=== PATIENT | female | born 1975 | race Caucasian/White ===

== ENCOUNTER 2018-08-05 08:42 | Inpatient (IN) ==
[2018-08-05] MEDS ORDERED: 0.9 % Sodium Chloride 1,000 ML IVC ONE (09:33)
[2018-08-05] MEDS ORDERED: Ondansetron 4 MG/2 ML VIAL IVP ONE (09:35)
[2018-08-05] MEDS ORDERED: *HR* FentaNYL (PF) 100 MCG/2 ML VIAL IVP ONE (09:41)
--- NOTE | 2018-08-05 10:03 | Emergency Department Note ---
Disposition Clinical Impression: Abdominal pain Qualifiers: Abdominal location: unspecified location Qualified Code(s): R10.9 - Unspecified abdominal pain Disposition: Still a Patient Referrals: NONE,PCP [Primary Care Provider] - General Adult HPI - General Chief complaint: ED GI Bleed Stated complaint: rectal bleeding, abd pain Time Seen by Provider: 08/05/18 09:09 Source: patient Limitations: no limitations Nursing Notes Reviewed: Yes Vital Signs Reviewed: Yes - History of Present Illness HPI Narrative: ED attending attestation note: I examined this patient and my medical decision-making was reviewed with the emergency medicine resident Emilio Anne. I agree with the documented findings, disposition and treatment plan as described except to the extent set forth below. Briefly: 42-year-old female complaining of lower abdominal pain and blood in her stool. No prior history of GI bleeding she has had multiple abdominal surgeries including bladder suspension with mesh. Patient is getting abdominal pelvic CT screening labs IV fluids IV analgesics. Disposition pending. Pain Scale: 10 - Related Data Allergies Allergy/AdvReac Type Severity Reaction Status Date / Time diphenhydramine AdvReac Palpitation Verified 08/05/18 08:44 [From Benadryl] s hydrocodone [From Vicodin] AdvReac Vomiting Verified 08/05/18 08:44 Past Medical History - Past Medical History Medical history: Reports: other Psychiatric history: Reports: no psych history - Social History Smoking Status: Current every day smoker Smokeless Tobacco Status: No Alcohol use: Reports: none Drug use: Reports: marijuana Physical Exam - General Limitations: no limitations General appearance: alert, in no apparent distress Course Vital Signs Temperature 97.8 F 08/05/18 08:44 Pulse Rate 135 08/05/18 08:44 Respiratory Rate 16 08/05/18 08:44 Blood Pressure 118/86 08/05/18 08:44 O2 Sat by Pulse Oximetry 97 08/05/18 08:44 Temperature 97.8 F 08/05/18 08:44 Pulse Rate 135 08/05/18 08:44 Respiratory Rate 16 08/05/18 08:44 Blood Pressure 118/86 08/05/18 08:44 O2 Sat by Pulse Oximetry 97 08/05/18 08:44 Oxygen Delivery Oxygen Delivery Room Air
--- NOTE | 2018-08-05 10:04 | Emergency Department Note ---
Disposition Clinical Impression: Abdominal pain Qualifiers: Abdominal location: left lower quadrant Qualified Code(s): R10.32 - Left lower quadrant pain Sepsis Qualifiers: Sepsis type: sepsis due to unspecified organism Qualified Code(s): A41.9 - Sepsis, unspecified organism Diverticulitis of large intestine with abscess Qualifiers: Diverticulitis bleeding: with bleeding Qualified Code(s): K57.21 - Diverticulitis of large intestine with perforation and abscess with bleeding Disposition: Admitted As Inpatient Condition: Fair Time of Disposition: 10:55 General Adult HPI - General Chief complaint: ED GI Bleed Stated complaint: rectal bleeding, abd pain Time Seen by Provider: 08/05/18 09:09 Source: patient Mode of arrival: ambulatory Limitations: no limitations Nursing Notes Reviewed: Yes Vital Signs Reviewed: Yes - History of Present Illness HPI Narrative: Patient is a 42-year-old female past medical history of partial hysterectomy and bladder mesh presents to the emergency room in for evaluation of abdominal pain associated with nausea, vomiting and diarrhea. Her abdominal pain started proximally 6 days ago. She describes as diffuse but more localized to the lower quadrants, constant, severe cramping. She started having nausea, vomiting and diarrhea over the past 3 days. States that she thinks she is mostly nauseous secondary to the abdominal pain that she is having emesis is nonbloody and nonbilious. She states that she began having blood in her diarrhea yesterday evening which she saw a small amount of red streaking blood in the stool mixed in. States she thinks she is had about 15 episodes of diarrhea over the past 3 days. She also has felt feverish. Possible recent sick contact at home. States she has a history of diverticulosis but has not had diverticulitis or colitis in the past. She does states she has had chronic abdominal pain since having her bladder mesh placed however this is more acute. Pain Scale: 10 - Related Data Allergies Allergy/AdvReac Type Severity Reaction Status Date / Time diphenhydramine AdvReac Palpitation Verified 08/05/18 08:44 [From Benadryl] s hydrocodone [From Vicodin] AdvReac Vomiting Verified 08/05/18 08:44 All systems ED: reviewed and negative except as stated. Review of Systems: As Per HPI Constitutional: Reports: fever. Denies: chills Cardiovascular: Denies: chest pain, palpitations, dyspnea on exertion Respiratory: Denies: cough, dyspnea, wheezes Gastrointestinal: Reports: abdominal pain, nausea, vomiting, diarrhea, hematochezia. Denies: constipation, hematemesis, melena Genitourinary: Denies: urgency, dysuria, frequency Musculoskeletal: Denies: back pain, neck pain Integumentary: Denies: rash Past Medical History - Past Medical History Attestation: Yes The following information was validated with the patient. Medical history: Reports: other Psychiatric history: Reports: no psych history - Social History Smoking Status: Current every day smoker Smokeless Tobacco Status: No Alcohol use: Reports: none Drug use: Reports: marijuana Physical Exam CONSTITUTIONAL: Alert and oriented X3. Laying on her side and appears to be in mild discomfort. HEAD: Normocephalic; atraumatic. EYES: PERRL, no scleral icterus. NOSE: The nose is normal in appearance without rhinorrhea RESP: Normal chest excursion with respiration; breath sounds clear and equal bilaterally; no wheezes, rhonchi, or rales CARD: Regular rhythm, without murmurs, rub or gallop ABD: Diffuse abdominal tenderness, worse so in the LLQ. No peritoneal signs. No rebound, rigidity or guarding. RECTAL: Rectal tone intact. No BRB in the rectal vault. Brown stool present. No fissure or hemorrhoid. SKIN: Normal for age and race; warm and dry; no apparent lesions - General Limitations: no limitations General appearance: alert, in no apparent distress Course Course Narrative: Patient presents for abdominal pain as well as nausea vomiting diarrhea. Her pain seems localized most in the left lower quadrant on exam however it is diffuse. She will undergo imaging, lab work we will treat her nausea as well as her pain. Given her history of diarrhea as well as blood in the stool we will send off a fecal occult card and suspect that this is possibly due to infection possibly colitis versus diverticulitis. - Reevaluation(s) Reevaluation #1: CT scan of the abdomen and pelvis without IV contrast does show acute rectosigmoid diverticulitis with a small peridiverticular abscess measuring appr oximately 2.2 x 1 cm. No signs of perforation. Patient also has a leukocytosis of 24,000. Cultures were ordered and IV antibiotics were ordered as well. A lactate was added on. Patient is meeting criteria for sepsis and given that she does have diverticulitis with a small abscess she will need to be admitted to the hospital for IV antibiotics. Time: 10:25 Reevaluation #2: I discussed the patient's case with the surgeon electronic device repairer, Dr. Leonardo. She agreed to accept the patient to her services. Discussed that this is most likely not a surgical issue at this point where they will continue with IV antibiotics and reassessment. I discussed this with the patient and she agrees with that plan. She was admitted to the surgical services. Time: 10:54 Vital Signs Temperature 97.8 F 08/05/18 08:44 Pulse Rate 135 08/05/18 08:44 Respiratory Rate 16 08/05/18 08:44 Blood Pressure 118/86 08/05/18 08:44 O2 Sat by Pulse Oximetry 97 08/05/18 08:44 Temperature 99.2 F 08/05/18 11:12 Pulse Rate 102 08/05/18 11:12 Respiratory Rate 16 08/05/18 11:12 Blood Pressure 103/75 08/05/18 11:12 O2 Sat by Pulse Oximetry 97 08/05/18 11:12 Oxygen Delivery Oxygen Delivery Room Air Medical Decision Making - Medical Records Medical records reviewed: Yes I reviewed the patient's medical records. - Lab Data Lab results reviewed: Yes I reviewed the patient's lab results. Result diagrams: 08/05/18 09:50 08/05/18 09:50 Lab Results 08/05/18 08/05/18 08/05/18 Range/Units 09:46 09:50 09:50 WBC 24.2 H (4.3-11.1) K/mcL RBC 4.65 (3.82-4.97) M/mcL Hgb 14.6 (11.5-15.4) g/dL Hct 43.0 (35.3-44.9) % MCV 92.5 (83.0-100.0) fL MCH 31.4 (28.0-33.3) pg MCHC 34.0 (31.6-35.5) g/dL RDW 14.4 (11.5-14.5) % Plt Count 367 (140-400) K/mcL MPV 9.7 (9.4-12.4) fL Immature Gran % 0.5 (0-4) % Seg Neutrophils % 88.2 % Lymphocytes % 4.0 % Monocytes % 7.1 % Eosinophils % 0.0 % Basophils % 0.2 % Neutrophils # 21.3 H (1.6-8.9) K/mcL Lymphocytes # 1.0 (0.6-4.6) K/mcL Monocytes # 1.7 H (0.0-1.3) K/mcL Eosinophils # 0.0 (0.0-0.6) K/mcL Basophils # 0.1 (0.0-0.2) K/mcL Sodium 132 L (136-145) mEq/L Potassium 3.7 (3.5-5.1) mEq/L Chloride 100 (98-107) mEq/L Carbon Dioxide 20 L (23-29) mEq/L BUN 8 (6-20) mg/dL Creatinine 0.73 (0.60-1.20) mg/dL Est GFR ( Amer) > 60 (> 60) Est GFR (Non-Af Amer) > 60 (> 60) BUN/Creatinine Ratio 11 (6-26) Glucose 118 H (70-105) mg/dL Calculated Osmolality 273 L (280-300) Calcium 9.3 (8.6-10.3) mg/dL Total Bilirubin 1.2 H (0.3-1.0) mg/dL Direct Bilirubin 0.4 H (0.0-0.2) mg/dL Indirect Bilirubin 0.8 (0.0-1.2) mg/dL AST 16 (13-39) Units/L ALT 19 (7-52) Units/L Alkaline Phosphatase 96 (34-104) Units/L Serum Total Protein 7.9 (6.4-8.9) g/dL Albumin 4.0 (3.5-5.7) g/dL Globulin 3.9 H (2.4-3.5) g/dL Albumin/Globulin Ratio 1.0 L (1.1-2.2) Lipase 5 L (11-82) Units/L Urine Color (Yellow) Urine Clarity (Clear) Urine pH (5.0-8.0) pH Units Ur Specific [place] (1.010-1.025) Urine Protein (Neg-Trace) mg/dL Urine Glucose (UA) (Normal) mg/dL Urine Ketones (Negative) mg/dL Urine Blood (Negative) Urine Nitrite (Negative) Urine Bilirubin (Negative) Urine Urobilinogen (Normal) mg/dL Ur Leukocyte Esterase (Negative) Urine Microscopic RBC (0-3) per hpf Urine Microscopic WBC (0-3) per hpf Ur Squamous Epith Cells (None-Few) per lpf Urine Bacteria (None-Few) per hpf Hyaline Casts (None-Few) per lpf Ur Culture Indicated? (NO) Stool Occult Bld Scrn Negative (Negative) Specimen Rejected 08/05/18 08/05/18 Range/Units 10:18 10:35 WBC (4.3-11.1) K/mcL RBC (3.82-4.97) M/mcL Hgb (11.5-15.4) g/dL Hct (35.3-44.9) % MCV (83.0-100.0) fL MCH (28.0-33.3) pg MCHC (31.6-35.5) g/dL RDW (11.5-14.5) % Plt Count (140-400) K/mcL MPV (9.4-12.4) fL Immature Gran % (0-4) % Seg Neutrophils % % Lymphocytes % % Monocytes % % Eosinophils % % Basophils % % Neutrophils # (1.6-8.9) K/mcL Lymphocytes # (0.6-4.6) K/mcL Monocytes # (0.0-1.3) K/mcL Eosinophils # (0.0-0.6) K/mcL Basophils # (0.0-0.2) K/mcL Sodium (136-145) mEq/L Potassium (3.5-5.1) mEq/L Chloride (98-107) mEq/L Carbon Dioxide (23-29) mEq/L BUN (6-20) mg/dL Creatinine (0.60-1.20) mg/dL Est GFR ( Amer) (> 60) Est GFR (Non-Af Amer) (> 60) BUN/Creatinine Ratio (6-26) Glucose (70-105) mg/dL Calculated Osmolality (280-300) Calcium (8.6-10.3) mg/dL Total Bilirubin (0.3-1.0) mg/dL Direct Bilirubin (0.0-0.2) mg/dL Indirect Bilirubin (0.0-1.2) mg/dL AST (13-39) Units/L ALT (7-52) Units/L Alkaline Phosphatase (34-104) Units/L Serum Total Protein (6.4-8.9) g/dL Albumin (3.5-5.7) g/dL Globulin (2.4-3.5) g/dL Albumin/Globulin Ratio (1.1-2.2) Lipase (11-82) Units/L Urine Color Dark Yellow (Yellow) Urine Clarity Cloudy A (Clear) Urine pH 6.0 (5.0-8.0) pH Units Ur Specific [place] 1.014 (1.010-1.025) Urine Protein 100 H (Neg-Trace) mg/dL Urine Glucose (UA) Normal (Normal) mg/dL Urine Ketones 15 H (Negative) mg/dL Urine Blood Large H (Negative) Urine Nitrite Negative (Negative) Urine Bilirubin Small H (Negative) Urine Urobilinogen Normal (Normal) mg/dL Ur Leukocyte Esterase Negative (Negative) Urine Microscopic RBC 30-50 H (0-3) per hpf Urine Microscopic WBC 3-5 H (0-3) per hpf Ur Squamous Epith Cells Many H (None-Few) per lpf Urine Bacteria None Seen (None-Few) per hpf Hyaline Casts Few (None-Few) per lpf Ur Culture Indicated? NO (NO) Stool Occult Bld Scrn (Negative) Specimen Rejected Hemolyzed - Radiology Data Radiology results reviewed: Yes I reviewed the patient's radiology results. Abdomen/Pelvis CT 08/05/18 09:34 IMPRESSION: Acute rectosigmoid diverticulitis with small mariola-diverticular abscess. D/ / Rodrigo Hanson MD / Rodrigo Hanson MD Interpreting Provider: Rodrigo Hanson MD - EKG Data EKG #1 EKG attestation: Yes I reviewed and interpreted this EKG. EKG results narrative: EKG done at 11:02 shows sinus tachycardia rate of 101. Intervals within normal limits normal axis. No signs of ST elevation, ST depression or Q waves present.
[2018-08-05 10:13] LABS: Basophils # 0.1 K/mcL (0.0-0.2); Basophils % 0.2 %; Hemoglobin 14.6 g/dL (11.5-15.4); Immature Granulocytes % 0.5 % (0-4); Mean Corpuscular Hemoglobin 31.4 pg (28.0-33.3); Mean Corpuscular Volume 92.5 fL (83.0-100.0); Mean Platelet Volume 9.7 fL (9.4-12.4); Monocytes # 1.7 K/mcL (0.0-1.3); Monocytes % 7.1 %; Neutrophils # 21.3 K/mcL (1.6-8.9); Platelet Count 367 K/mcL (140-400); Red Blood Count 4.65 M/mcL (3.82-4.97); Red Cell Distribution Width 14.4 % (11.5-14.5); Segmented Neutrophils % 88.2 %
[2018-08-05] MEDS ORDERED: MetroNIDAZOLE 500 MG/100 ML 500 MG/100 ML BAG IVPB ONE (10:19)
[2018-08-05 10:30] LABS: Alanine Aminotransferase 19 Units/L (7-52); Alkaline Phosphatase 96 Units/L (34-104); Aspartate Amino Transferase 16 Units/L (13-39); BUN/Creatinine Ratio 11 (6-26); Bilirubin,Direct 0.4 mg/dL (0.0-0.2); Bilirubin,Indirect 0.8 mg/dL (0.0-1.2); Bilirubin,Total 1.2 mg/dL (0.3-1.0); Blood Urea Nitrogen 8 mg/dL (6-20); Calcium 9.3 mg/dL (8.6-10.3); Carbon Dioxide 20 mEq/L (23-29); Chloride 100 mEq/L (98-107); Globulin 3.9 g/dL (2.4-3.5); Glucose 118 mg/dL (70-105); Lipase 5 Units/L (11-82); Osmolality,Calculated 273 (280-300); Potassium 3.7 mEq/L (3.5-5.1); Sodium 132 mEq/L (136-145); Total Protein 7.9 g/dL (6.4-8.9); eGFR For Non-African Americans > 60 (> 60)
[2018-08-05 10:36] LABS: Bilirubin,Urine Small (Negative); Blood,Urine Large (Negative); Clarity,Urine Cloudy (Clear); Color,Urine Dark Yellow (Yellow); Glucose,Urine (UA) Normal (Normal); Ketones,Urine 15 mg/dL (Negative); Leukocyte Esterase,Urine Negative (Negative); Nitrite,Urine Negative (Negative); Protein,Urine 100 mg/dL (Neg-Trace); Specific Gravity,Urine 1.014 (1.010-1.025); Urobilinogen,Urine Normal (Normal)
[2018-08-05 10:39] LABS: Bacteria,Urine None Seen per hpf (None-Few); Hyaline Casts,Urine Few per lpf (None-Few); RBC,Urine 30-50 per hpf (0-3); Squamous Epithelial Cell,Urine Many per lpf (None-Few)
[2018-08-05] MEDS ORDERED: Naloxone 0.4 MG/ML INJ IVP PRN (12:35)
[2018-08-05] MEDS ORDERED: *HR* Metoprolol 5 MG/5 ML VIAL IVP PRN (12:35)
[2018-08-05] MEDS ORDERED: OXYCODONE Oral CONC 10 MG/0.5 ML ORAL.SYG SL PRN (12:35)
[2018-08-05] MEDS ORDERED: *HR* Promethazine 25 MG/ML VIAL IVP PRN (12:35)
--- NOTE | 2018-08-05 14:05 | General Surg History&Physical ---
Date of Encounter: 08/05/18 Time of Encounter: 14:00 Assessment and Plan (1) Leukocytosis Current Visit: Yes Status: Acute The assessment and plan as outlined above was discussed with the patient and/or family members who expressed understanding and agreement. All questions were answered. cipro/flagyl trend wbc Qualifiers: Leukocytosis type: unspecified Qualified Code(s): D72.829 - Elevated white blood cell count, unspecified (2) Elevated LFTs Current Visit: Yes Status: Acute The assessment and plan as outlined above was discussed with the patient and/or family members who expressed understanding and agreement. All questions were answered. likely reactive (3) Tobacco abuse Current Visit: Yes Status: Chronic The assessment and plan as outlined above was discussed with the patient and/or family members who expressed understanding and agreement. All questions were answered. ok nicotine patch (4) Diverticulitis of large intestine with abscess Current Visit: Yes Status: Acute The assessment and plan as outlined above was discussed with the patient and/or family members who expressed understanding and agreement. All questions were answered. discussed CT results, labs, and physical findings with patient will plan npo, ok ice chips serial abdominal exams, bowel rest antibiotics prn pain control gi/dvt prophylaxis trend wbc ivf hydration Qualifiers: Diverticulitis bleeding: with bleeding Qualified Code(s): K57.21 - Diverticulitis of large intestine with perforation and abscess with bleeding History of Present Illness Chief complaint: abdominal pain HPI: Ms. Perales is a 42 year old female with a history of diverticulitis about 10 years ago. She started having lower abdominal pain about 6 days ago. Initially pain was dull but continued to progress to severe sharp pain that made it difficult for her to walk. She has had N/V with the pain. No hematemesis. No diarrhea. Still passing flatus and last bm today, some blood present. She had a colonscopy about 10 years ago after her first episode of diverticulitis. She presented to ED and CT showed rectosigmoid diverticulitis, no free air but small pericolonic abscess. Elevated wbc. Past Med Surg Social Fam HX - Past Medical History Source: patient Medical history: other (history diverticulitis) Additional medical history: IBS Psychiatric history: no psych history - Past Surgical History Surgical History: (x3), hysterectomy (partial), other (bilateral ear tubes as child and bilateral ear surgery for "holes in eardrum") Additional surgical history: bladder sling, ear sx - Social History Smoking Status: Current every day smoker Packs per day: 1 Smokeless Tobacco Status: No Alcohol use: none Drug use: marijuana Current living situation: Home - Independent Activity Level: Independent ambulation - Family History Grandmother Hx Family Neurologic Disorders: Yes (brain tumors) Mother Hx Family Cardiac Disorders: Yes (HLD/HTN) Medications and Allergies Allergy/AdvReac Type Severity Reaction Status Date / Time diphenhydramine AdvReac Palpitation Verified 08/05/18 08:44 [From Benadryl] s hydrocodone [From Vicodin] AdvReac Vomiting Verified 08/05/18 08:44 Review of Systems All systems PM: reviewed and no additional remarkable complaints except as stated All systems PM: The remainder of the systems were reviewed and are negative General Surgery Exam Initial Vital Signs Temp Pulse Resp BP Pulse Ox 97.8 F 135 16 118/86 97 08/05/18 08:44 08/05/18 08:44 08/05/18 08:44 08/05/18 08:44 08/05/18 08:44 - General physical appearance well developed, well nourished, no distress, moderate pain - Eyes PERRL, normal ocular movement - ENT normal mucosa, normocephalic - Neck trachea midline - Respiratory normal expansion, clear to auscultation - Cardiovascular Cardiovascular exam: Present: RRR, no murmurs/rubs/gallops - Abdomen Abdomen general surgery: Present: bowel sounds present, soft, tender. Absent: distended, guarding, rebound Abdominal Tenderness: Present: LLQ, suprapubic - Integumentary Integumentary general surgery: Present: warm and dry - Neurologic Present: CN 2-12 grossly intact - Musculoskeletal Present: normal posture - Psychiatric Psychiatric general surgery: Present: A&Ox3, speech is normal Results - Labs 08/05/18 09:50 08/05/18 09:50 Abnormal lab results WBC 24.2 K/mcL (4.3-11.1) H 08/05/18 09:50 Neutrophils # 21.3 K/mcL (1.6-8.9) H 08/05/18 09:50 Monocytes # 1.7 K/mcL (0.0-1.3) H 08/05/18 09:50 Sodium 132 mEq/L (136-145) L 08/05/18 09:50 Carbon Dioxide 20 mEq/L (23-29) L 08/05/18 09:50 Glucose 118 mg/dL (70-105) H 08/05/18 09:50 Calculated Osmolality 273 (280-300) L 08/05/18 09:50 Total Bilirubin 1.2 mg/dL (0.3-1.0) H 08/05/18 09:50 Direct Bilirubin 0.4 mg/dL (0.0-0.2) H 08/05/18 09:50 Globulin 3.9 g/dL (2.4-3.5) H 08/05/18 09:50 Albumin/Globulin Ratio 1.0 (1.1-2.2) L 08/05/18 09:50 Lipase 5 Units/L (11-82) L 08/05/18 09:50 Urine Clarity Cloudy (Clear) A 08/05/18 10:18 Urine Protein 100 mg/dL (Neg-Trace) H 08/05/18 10:18 Urine Ketones 15 mg/dL (Negative) H 08/05/18 10:18 Urine Blood Large (Negative) H 08/05/18 10:18 Urine Bilirubin Small (Negative) H 08/05/18 10:18 Urine Microscopic RBC 30-50 per hpf (0-3) H 08/05/18 10:18 Urine Microscopic WBC 3-5 per hpf (0-3) H 08/05/18 10:18 Ur Squamous Epith Cells Many per lpf (None-Few) H 08/05/18 10:18 Diabetes panel 08/05/18 Range/Units 09:50 Sodium 132 L (136-145) mEq/L Potassium 3.7 (3.5-5.1) mEq/L Chloride 100 (98-107) mEq/L Carbon Dioxide 20 L (23-29) mEq/L BUN 8 (6-20) mg/dL Creatinine 0.73 (0.60-1.20) mg/dL Glucose 118 H (70-105) mg/dL Calcium 9.3 (8.6-10.3) mg/dL AST 16 (13-39) Units/L ALT 19 (7-52) Units/L Alkaline Phosphatase 96 (34-104) Units/L Albumin 4.0 (3.5-5.7) g/dL Calcium panel 08/05/18 Range/Units 09:50 Calcium 9.3 (8.6-10.3) mg/dL Albumin 4.0 (3.5-5.7) g/dL Pituitary panel 08/05/18 Range/Units 09:50 Sodium 132 L (136-145) mEq/L Potassium 3.7 (3.5-5.1) mEq/L Chloride 100 (98-107) mEq/L Carbon Dioxide 20 L (23-29) mEq/L BUN 8 (6-20) mg/dL Creatinine 0.73 (0.60-1.20) mg/dL Glucose 118 H (70-105) mg/dL Calcium 9.3 (8.6-10.3) mg/dL Adrenal panel 08/05/18 Range/Units 09:50 Sodium 132 L (136-145) mEq/L Potassium 3.7 (3.5-5.1) mEq/L Chloride 100 (98-107) mEq/L Carbon Dioxide 20 L (23-29) mEq/L BUN 8 (6-20) mg/dL Creatinine 0.73 (0.60-1.20) mg/dL Glucose 118 H (70-105) mg/dL Calcium 9.3 (8.6-10.3) mg/dL Total Bilirubin 1.2 H (0.3-1.0) mg/dL AST 16 (13-39) Units/L ALT 19 (7-52) Units/L Alkaline Phosphatase 96 (34-104) Units/L Albumin 4.0 (3.5-5.7) g/dL All other labs normal. - Imaging CT scan - abdomen: report reviewed, image reviewed CT scan - pelvis: report reviewed, image reviewed
[2018-08-05] MEDS: Pantoprazole 40 MG VIAL IVP SCH (14:40)
[2018-08-05] MEDS: Acetaminophen IV 1,000 MG/100 ML INFUS..BTL IVPB SCH ×2 (14:40→17:02)
[2018-08-05] MEDS: OXYCODONE Oral CONC 10 MG/0.5 ML ORAL.SYG SL PRN (14:40)
[2018-08-05] MEDS: 0.9 % Sodium Chloride 1,000 ML IVC SCH ×2 (14:41→22:40)
[2018-08-05] MEDS: Nicotine 7 MG PATCH.TD24 TD SCH (14:42)
[2018-08-05] MEDS: MetroNIDAZOLE 500 MG/100 ML 500 MG/100 ML BAG IVPB SCH (17:19)
[2018-08-05] MEDS: *HR* Heparin 5,000 UNIT/ML VIAL SQ SCH (17:20)
[2018-08-06] MEDS: Acetaminophen IV 1,000 MG/100 ML INFUS..BTL IVPB SCH ×5 (00:15→18:26)
[2018-08-06] MEDS: MetroNIDAZOLE 500 MG/100 ML 500 MG/100 ML BAG IVPB SCH ×3 (00:36→16:31)
[2018-08-06 03:57] LABS: Basophils % 0.3 %; Eosinophils # 0.1 K/mcL (0.0-0.6); Eosinophils % 0.9 %; Hematocrit 36.1 % (35.3-44.9); Immature Granulocytes % 0.3 % (0-4); Lymphocytes # 1.3 K/mcL (0.6-4.6); Lymphocytes % 11.3 %; Mean Corpuscular HGB Conc 32.4 g/dL (31.6-35.5); Mean Corpuscular Volume 95.5 fL (83.0-100.0); Mean Platelet Volume 9.5 fL (9.4-12.4); Monocytes # 0.8 K/mcL (0.0-1.3); Monocytes % 7.1 %; Neutrophils # 9.5 K/mcL (1.6-8.9); Platelet Count 257 K/mcL (140-400); Red Blood Count 3.78 M/mcL (3.82-4.97); Red Cell Distribution Width 14.5 % (11.5-14.5); Segmented Neutrophils % 80.1 %
[2018-08-06 03:58] LABS: Hemoglobin 11.7 g/dL (11.5-15.4)
[2018-08-06 04:17] LABS: BUN/Creatinine Ratio 11 (6-26); Blood Urea Nitrogen 7 mg/dL (6-20); Calcium 8.1 mg/dL (8.6-10.3); Carbon Dioxide 22 mEq/L (23-29); Chloride 108 mEq/L (98-107); Glucose 84 mg/dL (70-105); Osmolality,Calculated 281 (280-300); Phosphorous 2.5 mg/dL (2.7-4.5); Potassium 3.8 mEq/L (3.5-5.1); Sodium 137 mEq/L (136-145); eGFR For Non-African Americans > 60 (> 60)
[2018-08-06] MEDS: *HR* Heparin 5,000 UNIT/ML VIAL SQ SCH ×2 (05:25→18:34)
[2018-08-06] MEDS: 0.9 % Sodium Chloride 1,000 ML IVC SCH ×2 (07:01→16:36)
[2018-08-06] MEDS: Nicotine 7 MG PATCH.TD24 TD SCH (08:36)
[2018-08-06] MEDS: Pantoprazole 40 MG VIAL IVP SCH (08:37)
[2018-08-06] MEDS: OXYCODONE Oral CONC 10 MG/0.5 ML ORAL.SYG SL PRN ×2 (08:45→20:05)
--- NOTE | 2018-08-06 10:53 | General Surgery Progress Note ---
<Becky Wallace - Last Filed: 08/06/18 10:50> Date of Encounter: 08/06/18 Time of Encounter: 10:50 - Assessment and Plan (1) Diverticulitis of large intestine with abscess Current Visit: Yes Status: Acute Abdominal discomfort is significantly improved from yesterday. While this SHIFT FOREMAN was performing her examination, the patient was deeply palpating and lifting her abdominal fold without difficulty; stating that her discomfort had improved. She is afebrile and VSS. We will trial clear liquid diet. when discussing full liquid diet (possible tomorrow), patient states, "I don't liek any of that. I won't eat it." She may require advancement to soft rather than fulls when appropriate. Plan: continue supportive care and discomfort management clear liquid diet, no carbonation. If patient has any discomfort with diet return to NPO continue IV antibiotics continue G.I. and DVT prophylaxis ambulate TID out of bed to chair TID serial abdominal exams repeat a.m. labs continue to closely monitor Qualifiers: Diverticulitis bleeding: with bleeding Qualified Code(s): K57.21 - Divert iculitis of large intestine with perforation and abscess with bleeding (2) Leukocytosis Current Visit: Yes Status: Acute WBC is down trending see above Qualifiers: Leukocytosis type: unspecified Qualified Code(s): D72.829 - Elevated white blood cell count, unspecified (3) Tobacco abuse Current Visit: Yes Status: Chronic Subjective Patient reports: no new complaints, feels better, pain is less, voiding w/o difficulty, flatus, no bowel movement, afebrile Narrative: denies n/v Objective Vital Signs - Last 8 Hours Temp Pulse Resp BP Pulse Ox 08/06/18 10:49 97.7 F 70 16 113/73 98 08/06/18 07:15 97.8 F 67 14 90/59 98 08/06/18 03:11 98.1 F 72 16 97/65 97 Intake and Output 08/05/18 08/06/18 08/06/18 23:59 07:59 15:59 Intake Total 1300 / 1300 1200 / 1200 0 / 0 Output Total 500 / 500 150 / 150 Balance 1300 / 1300 700 / 700 -150 / -150 Intake: IV Fluids 1300 / 1300 1200 / 1200 0.9 % Sodium Chloride 1,000 ML 1000 / 1000 1000 / 1000 @ 130 mls/hr IVC .Q7H42M [facility] Rx #:[id number] Ofirmev 1,000 mg/100 ml 1,000 100 / 100 mg In 100 ml @ 400 mls/hr IVPB Q6HR [facility] Rx#:[id number] Cipro Premix 400 MG/200 ML 400 200 / 200 mg In 200 ml @ 200 mls/hr IVPB Q12HR [facility] Rx#:[id number] Flagyl Premix 500 MG/100 ML 500 100 / 100 100 / 100 mg In 100 ml @ 100 mls/hr IVPB Q8HR [facility] Rx#:[id number] Oral 0 / 0 Output: Urine 500 / 500 150 / 150 Other: Meal NPO Percent of Meal Consumed 0% Weight 74.5 kg Patient Weight 08/06/18 23:59 Weight 74.5 kg - General physical appearance well nourished, no distress - Eyes normal ocular movement - ENT normal nares, normal mucosa - Neck Neck exam: trachea midline - Respiratory normal expansion, normal respiratory effort - Cardiovascular Cardiovascular exam: Present: RRR - Abdomen Abdomen: Present: bowel sounds present, soft, tender (mild tenderness with deep palpation). Absent: guarding Hernia: none - Integumentary no rash - Neurologic normal coordination - Musculoskeletal normal gait, normal posture - Psychiatric oriented to time, oriented to person, oriented to place, speech is normal, memory intact - Labs 08/06/18 03:37 08/06/18 03:37 Diabetes panel 08/06/18 Range/Units 03:37 Sodium 137 (136-145) mEq/L Potassium 3.8 (3.5-5.1) mEq/L Chloride 108 H (98-107) mEq/L Carbon Dioxide 22 L (23-29) mEq/L BUN 7 (6-20) mg/dL Creatinine 0.64 (0.60-1.20) mg/dL Glucose 84 (70-105) mg/dL Calcium 8.1 L (8.6-10.3) mg/dL Calcium panel 08/06/18 Range/Units 03:37 Calcium 8.1 L (8.6-10.3) mg/dL Phosphorus 2.5 L (2.7-4.5) mg/dL Pituitary panel 08/06/18 Range/Units 03:37 Sodium 137 (136-145) mEq/L Potassium 3.8 (3.5-5.1) mEq/L Chloride 108 H (98-107) mEq/L Carbon Dioxide 22 L (23-29) mEq/L BUN 7 (6-20) mg/dL Creatinine 0.64 (0.60-1.20) mg/dL Glucose 84 (70-105) mg/dL Calcium 8.1 L (8.6-10.3) mg/dL Adrenal panel 08/06/18 Range/Units 03:37 Sodium 137 (136-145) mEq/L Potassium 3.8 (3.5-5.1) mEq/L Chloride 108 H (98-107) mEq/L Carbon Dioxide 22 L (23-29) mEq/L BUN 7 (6-20) mg/dL Creatinine 0.64 (0.60-1.20) mg/dL Glucose 84 (70-105) mg/dL Calcium 8.1 L (8.6-10.3) mg/dL Consult Discharge Plan - Plan Referrals: Beverly White, TOW TRUCK DISPATCHER [Advanced Practice Nurse] - NONE,PCP [Primary Care Provider] - <Yanci Leonardo - Last Filed: 08/07/18 07:49> Date of Encounter: 08/06/18 Time of Encounter: 17:00 - Assessment and Plan (1) Leukocytosis Current Visit: Yes Status: Acute significantly improved, almost normal continue Abx trend wbc Qualifiers: Leukocytosis type: unspecified Qualified Code(s): D72.829 - Elevated white blood cell count, unspecified (2) Tobacco abuse Current Visit: Yes Status: Chronic (3) Diverticulitis of large intestine with abscess Current Visit: Yes Status: Acute started clears and is tolerating, pain well controlled and no pain medication since this am pain is significantly improved today no nausea continue IVF hydration prn pain control gi/dvt prophylaxis ambulate/OOB to chair cont serial abdominal exams Qualifiers: Diverticulitis bleeding: with bleeding Qualified Code(s): K57.21 - D iverticulitis of large intestine with perforation and abscess with bleeding Subjective Patient reports: feels better, still having pain, pain is less, voiding w/o difficulty, flatus, no bowel movement, afebrile Objective Vital Signs - Last 8 Hours Temp Pulse Resp BP Pulse Ox 08/07/18 07:20 97.7 F 79 13 114/70 96 08/07/18 03:15 97.9 F 58 16 93/56 99 Intake and Output 08/06/18 08/06/18 08/07/18 15:59 23:59 07:59 Intake Total 2160 / 2160 500 / 500 200 / 200 Output Total 150 / 150 450 / 450 Balance 2009 500 / 500 -250 / -250 Intake: IV Fluids 1200 / 1200 500 / 500 200 / 200 0.9 % Sodium Chloride 1,000 ML 1000 / 1000 100 / 100 @ 130 mls/hr IVC .Q7H42M [facility] Rx #:[id number] Ofirmev 1,000 mg/100 ml 1,000 100 / 100 100 / 100 100 / 100 mg In 100 ml @ 400 mls/hr IVPB Q6HR [facility] Rx#:[id number] Cipro Premix 400 MG/200 ML 400 200 / 200 mg In 200 ml @ 200 mls/hr IVPB Q12HR [facility] Rx#:[id number] Flagyl Premix 500 MG/100 ML 500 100 / 100 100 / 100 100 / 100 mg In 100 ml @ 100 mls/hr IVPB Q8HR [facility] Rx#:[id number] Oral 960 / 960 Output: Urine 150 / 150 450 / 450 Other: Meal NPO Percent of Meal Consumed 0% Stool Size Small Stool Consistency loose Stool Color Yellow # Voids 1 1 # Bowel Movements 1 Weight 75.8 kg Patient Weight 08/07/18 23:59 Weight 75.8 kg - General physical appearance well developed, well nourished, no distress - Eyes normal ocular movement - ENT normal nares, normal mucosa, normocephalic - Neck Neck exam: trachea midline - Respiratory normal expansion, normal respiratory effort - Cardiovascular Cardiovascular exam: Present: RRR - Abdomen Abdomen: Present: bowel sounds present, soft, tender. Absent: distended, guarding, rebound - Integumentary no rash - Neurologic CN 2-12 grossly intact, normal coordination - Musculoskeletal normal posture - Psychiatric oriented to time, oriented to person, oriented to place, speech is normal, memory intact - Labs 08/07/18 05:41 08/07/18 05:41 Diabetes panel 08/07/18 Range/Units 05:41 Sodium 136 (136-145) mEq/L Potassium 3.4 L (3.5-5.1) mEq/L Chloride 110 H (98-107) mEq/L Carbon Dioxide 21 L (23-29) mEq/L BUN 5 L (6-20) mg/dL Creatinine 0.59 L (0.60-1.20) mg/dL Glucose 102 (70-105) mg/dL Calcium 8.3 L (8.6-10.3) mg/dL Calcium panel 08/07/18 Range/Units 05:41 Calcium 8.3 L (8.6-10.3) mg/dL Pituitary panel 08/07/18 Range/Units 05:41 Sodium 136 (136-145) mEq/L Potassium 3.4 L (3.5-5.1) mEq/L Chloride 110 H (98-107) mEq/L Carbon Dioxide 21 L (23-29) mEq/L BUN 5 L (6-20) mg/dL Creatinine 0.59 L (0.60-1.20) mg/dL Glucose 102 (70-105) mg/dL Calcium 8.3 L (8.6-10.3) mg/dL Adrenal panel 08/07/18 Range/Units 05:41 Sodium 136 (136-145) mEq/L Potassium 3.4 L (3.5-5.1) mEq/L Chloride 110 H (98-107) mEq/L Carbon Dioxide 21 L (23-29) mEq/L BUN 5 L (6-20) mg/dL Creatinine 0.59 L (0.60-1.20) mg/dL Glucose 102 (70-105) mg/dL Calcium 8.3 L (8.6-10.3) mg/dL - Attending Attestation I have personally performed a face to face evaluation on this patient. I have reviewed and agree with the care plan. History and Exam by me shows:
[2018-08-06] MEDS: Ondansetron 4 MG/2 ML VIAL IVP PRN (20:04)
[2018-08-07] MEDS: Acetaminophen IV 1,000 MG/100 ML INFUS..BTL IVPB SCH ×3 (01:12→18:22)
[2018-08-07] MEDS: 0.9 % Sodium Chloride 1,000 ML IVC SCH ×3 (01:18→17:22)
[2018-08-07] MEDS: MetroNIDAZOLE 500 MG/100 ML 500 MG/100 ML BAG IVPB SCH ×2 (01:39→08:38)
[2018-08-07] MEDS: *HR* Heparin 5,000 UNIT/ML VIAL SQ SCH ×2 (05:06→18:22)
[2018-08-07] MEDS: OXYCODONE Oral CONC 10 MG/0.5 ML ORAL.SYG SL PRN (06:06)
[2018-08-07 06:07] LABS: Basophils % 0.2 %; Eosinophils # 0.2 K/mcL (0.0-0.6); Hematocrit 32.3 % (35.3-44.9); Hemoglobin 10.7 g/dL (11.5-15.4); Immature Granulocytes % 0.4 % (0-4); Lymphocytes # 1.1 K/mcL (0.6-4.6); Lymphocytes % 13.6 %; Mean Corpuscular HGB Conc 33.1 g/dL (31.6-35.5); Mean Corpuscular Hemoglobin 30.9 pg (28.0-33.3); Mean Corpuscular Volume 93.4 fL (83.0-100.0); Mean Platelet Volume 9.6 fL (9.4-12.4); Monocytes # 0.5 K/mcL (0.0-1.3); Monocytes % 5.6 %; Neutrophils # 6.3 K/mcL (1.6-8.9); Platelet Count 257 K/mcL (140-400); Red Blood Count 3.46 M/mcL (3.82-4.97); Red Cell Distribution Width 14.7 % (11.5-14.5); Segmented Neutrophils % 78.2 %
[2018-08-07] MEDS: Ondansetron 4 MG/2 ML VIAL IVP PRN (06:12)
--- NOTE | 2018-08-07 06:13 | Electrocardiograph Report ---
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
[2018-08-07 06:25] LABS: BUN/Creatinine Ratio 8 (6-26); Blood Urea Nitrogen 5 mg/dL (6-20); Calcium 8.3 mg/dL (8.6-10.3); Carbon Dioxide 21 mEq/L (23-29); Chloride 110 mEq/L (98-107); Glucose 102 mg/dL (70-105); Osmolality,Calculated 279 (280-300); Potassium 3.4 mEq/L (3.5-5.1); Sodium 136 mEq/L (136-145); eGFR For Non-African Americans > 60 (> 60)
[2018-08-07] MEDS ORDERED: Isovue-370 500 ML BOTTLE IVP ONE (07:36)
[2018-08-07] MEDS ORDERED: *HR* HYDROmorphone (PF) 1 MG/ML SYRINGE IVP ONE ×3 (07:37→17:00)
--- NOTE | 2018-08-07 07:52 | General Surgery Progress Note ---
<Becky Wallace - Last Filed: 08/07/18 09:14> Date of Encounter: 08/07/18 Time of Encounter: 07:50 - Assessment and Plan (1) Diverticulitis of large intestine with abscess Current Visit: Yes Status: Acute Patient with acute onset of left lower quadrant and left lower mid abdominal pain. She was on clear liquids only yesterday and stated she had been tolerating them fine. She associates the onset of pain with an episode of diarrhea. We will treat her discomfort and obtain a stat CT of the abdomen and pelvis with IV contrast. Further recommendations pending otherwise see below Plan: continue supportive care and discomfort management NPO continue IV antibiotics continue G.I. and DVT prophylaxis ambulate TID out of bed to chair TID serial abdominal exams repeat a.m. labs continue to closely monitor Qualifiers: Diverticulitis bleeding: with bleeding Qualified Code(s): K57.21 - Diverticulitis of large intestine with perforation and abscess with bleeding (2) Leukocytosis Current Visit: Yes Status: Acute WBC is normal see above Qualifiers: Leukocytosis type: unspecified Qualified Code(s): D72.829 - Elevated white blood cell count, unspecified (3) Tobacco abuse Current Visit: Yes Status: Chronic Subjective Narrative: Pt reports her abdomen "felt fine," early this am, then she got her heparin injection, shortly after she developed sharp left-sided pain that extended down her abdomen "through my uterus and felt like it was coming out my rectum." She reports she had copious amounts of diarrhea that was normal brown color. She denies any black, bloody, or tarry stool. She denies any burning with urination. She states the discomfort has continued and feels sharp, in the same areas, and is an 8 out of 10. Objective Vital Signs - Last 8 Hours Temp Pulse Resp BP Pulse Ox 08/07/18 07:20 97.7 F 79 13 114/70 96 08/07/18 03:15 97.9 F 58 16 93/56 99 Intake and Output 08/06/18 08/06/18 08/07/18 15:59 23:59 07:59 Intake Total 2160 / 2160 500 / 500 200 / 200 Output Total 150 / 150 450 / 450 Balance 2009 500 / 500 -250 / -250 Intake: IV Fluids 1200 / 1200 500 / 500 200 / 200 0.9 % Sodium Chloride 1,000 ML 1000 / 1000 100 / 100 @ 130 mls/hr IVC .Q7H42M [facility] Rx #:[id number] Ofirmev 1,000 mg/100 ml 1,000 100 / 100 100 / 100 100 / 100 mg In 100 ml @ 400 mls/hr IVPB Q6HR [facility] Rx#:[id number] Cipro Premix 400 MG/200 ML 400 200 / 200 mg In 200 ml @ 200 mls/hr IVPB Q12HR [facility] Rx#:[id number] Flagyl Premix 500 MG/100 ML 500 100 / 100 100 / 100 100 / 100 mg In 100 ml @ 100 mls/hr IVPB Q8HR [facility] Rx#:[id number] Oral 960 / 960 Output: Urine 150 / 150 450 / 450 Other: Meal NPO Percent of Meal Consumed 0% Stool Size Small Stool Consistency loose Stool Color Yellow # Voids 1 1 # Bowel Movements 1 Weight 75.8 kg Patient Weight 08/07/18 23:59 Weight 75.8 kg - General physical appearance moderate distress - Eyes normal ocular movement - ENT normal nares, normal mucosa - Neck Neck exam: trachea midline - Respiratory normal expansion, normal respiratory effort - Cardiovascular Cardiovascular exam: Present: RRR - Abdomen Abdomen: Present: soft, tender. Absent: bowel sounds present, guarding Abdominal Tenderness: LUQ, LLQ, suprapubic Hernia: none - Integumentary no rash - Neurologic normal sensation - Musculoskeletal normal posture - Psychiatric oriented to time, oriented to person, oriented to place, speech is normal, memory intact - Labs 08/07/18 05:41 08/07/18 05:41 Diabetes panel 08/07/18 Range/Units 05:41 Sodium 136 (136-145) mEq/L Potassium 3.4 L (3.5-5.1) mEq/L Chloride 110 H (98-107) mEq/L Carbon Dioxide 21 L (23-29) mEq/L BUN 5 L (6-20) mg/dL Creatinine 0.59 L (0.60-1.20) mg/dL Glucose 102 (70-105) mg/dL Calcium 8.3 L (8.6-10.3) mg/dL Calcium panel 08/07/18 Range/Units 05:41 Calcium 8.3 L (8.6-10.3) mg/dL Pituitary panel 08/07/18 Range/Units 05:41 Sodium 136 (136-145) mEq/L Potassium 3.4 L (3.5-5.1) mEq/L Chloride 110 H (98-107) mEq/L Carbon Dioxide 21 L (23-29) mEq/L BUN 5 L (6-20) mg/dL Creatinine 0.59 L (0.60-1.20) mg/dL Glucose 102 (70-105) mg/dL Calcium 8.3 L (8.6-10.3) mg/dL Adrenal panel 08/07/18 Range/Units 05:41 Sodium 136 (136-145) mEq/L Potassium 3.4 L (3.5-5.1) mEq/L Chloride 110 H (98-107) mEq/L Carbon Dioxide 21 L (23-29) mEq/L BUN 5 L (6-20) mg/dL Creatinine 0.59 L (0.60-1.20) mg/dL Glucose 102 (70-105) mg/dL Calcium 8.3 L (8.6-10.3) mg/dL Consult Discharge Plan - Plan Referrals: Beverly White, DELI CLERK [Advanced Practice Nurse] - <Yanci Leonardo - Last Filed: 08/07/18 17:54> Date of Encounter: 08/07/18 - Assessment and Plan (1) Leukocytosis Current Visit: Yes Status: Acute Qualifiers: Leukocytosis type: unspecified Qualified Code(s): D72.829 - Elevated white blood cell count, unspecified (2) Tobacco abuse Current Visit: Yes Status: Chronic (3) Diverticulitis of large intestine with abscess Current Visit: Yes Status: Acute discussed with patient that she has failed conservative therapy and I recommend going to the OR urgently for a brittny procedure. risks and benefits discussed with the patient and she wishes to proceed npo ivf hydration pain control gi/dvt prophylaxis Qualifiers: Diverticulitis bleeding: with bleeding Qualified Code(s): K57.21 - Dive rticulitis of large intestine with perforation and abscess with bleeding Subjective Narrative: this am she had acute onset about 6 am of severe abdominal pain which radiates down her abdomen. A CT abd/pelvis was repeated and showed free air, worsening inflammation and fluid/abscesses of the abdomen. Objective Vital Signs - Last 8 Hours Temp Pulse Resp BP Pulse Ox 08/07/18 17:00 97.8 F 101 20 117/85 98 08/07/18 16:46 97.8 F 102 18 112/76 98 08/07/18 16:35 98.0 F 104 20 101/69 95 08/07/18 16:00 98.0 F 100 18 101/71 96 08/07/18 15:50 99.7 F H 100 17 103/71 95 08/07/18 15:40 110 22 118/74 95 08/07/18 15:30 98.9 F 99 22 108/71 95 08/07/18 15:20 102 20 109/74 94 08/07/18 15:10 96 17 106/71 93 08/07/18 15:00 99.2 F 80 20 106/70 95 08/07/18 14:50 84 18 104/70 95 08/07/18 14:40 105 18 90/78 94 08/07/18 14:30 99.5 F 109 24 107/74 97 08/07/18 10:43 97.7 F 79 13 114/70 96 Intake and Output 08/07/18 08/07/18 08/07/18 07:59 15:59 23:59 Intake Total 200 / 200 Output Total 450 / 450 100 / 100 0 / 0 Balance -250 / -250 -100 / -100 0 / 0 Intake: IV Fluids 200 / 200 Ofirmev 1,000 mg/100 ml 1,000 100 / 100 mg In 100 ml @ 400 mls/hr IVPB Q6HR [facility] Rx#:[id number] Flagyl Premix 500 MG/100 ML 500 100 / 100 mg In 100 ml @ 100 mls/hr IVPB Q8HR [facility] Rx#:[id number] Output: Urine 450 / 450 Gastric Tube Lavage Amount 0 / 0 Right Nare 0 / 0 Estimated Blood Loss 100 / 100 Wound Drainage 0 / 0 Midline 0 / 0 Other: Stool Size Small Stool Consistency loose Stool Color Yellow # Voids 1 # Bowel Movements 1 Weight 75.8 kg Patient Weight 08/07/18 23:59 Weight 75.8 kg - General physical appearance well developed, well nourished, moderate distress, moderate pain - Eyes PERRL, normal ocular movement - ENT normal mucosa, normocephalic - Neck Neck exam: trachea midline - Respiratory normal expansion, clear to auscultation - Cardiovascular Cardiovascular exam: Present: RRR - Abdomen Abdomen: Present: soft, distended, tender. Absent: bowel sounds present, guarding, rebound Abdominal Tenderness: LLQ - Integumentary no rash - Neurologic normal sensation - Musculoskeletal normal posture - Psychiatric oriented to time, oriented to person, oriented to place, speech is normal, memory intact - Labs 08/07/18 05:41 08/07/18 05:41 Diabetes panel 08/07/18 Range/Units 05:41 Sodium 136 (136-145) mEq/L Potassium 3.4 L (3.5-5.1) mEq/L Chloride 110 H (98-107) mEq/L Carbon Dioxide 21 L (23-29) mEq/L BUN 5 L (6-20) mg/dL Creatinine 0.59 L (0.60-1.20) mg/dL Glucose 102 (70-105) mg/dL Calcium 8.3 L (8.6-10.3) mg/dL Calcium panel 08/07/18 Range/Units 05:41 Calcium 8.3 L (8.6-10.3) mg/dL Pituitary panel 08/07/18 Range/Units 05:41 Sodium 136 (136-145) mEq/L Potassium 3.4 L (3.5-5.1) mEq/L Chloride 110 H (98-107) mEq/L Carbon Dioxide 21 L (23-29) mEq/L BUN 5 L (6-20) mg/dL Creatinine 0.59 L (0.60-1.20) mg/dL Glucose 102 (70-105) mg/dL Calcium 8.3 L (8.6-10.3) mg/dL Adrenal panel 08/07/18 Range/Units 05:41 Sodium 136 (136-145) mEq/L Potassium 3.4 L (3.5-5.1) mEq/L Chloride 110 H (98-107) mEq/L Carbon Dioxide 21 L (23-29) mEq/L BUN 5 L (6-20) mg/dL Creatinine 0.59 L (0.60-1.20) mg/dL Glucose 102 (70-105) mg/dL Calcium 8.3 L (8.6-10.3) mg/dL - Imaging CT scan - abdomen: report reviewed, image reviewed CT scan - pelvis: report reviewed, image reviewed - Attending Attestation I have personally performed a face to face evaluation on this patient. I have reviewed and agree with the care plan. History and Exam by me shows:
[2018-08-07] MEDS: Pantoprazole 40 MG VIAL IVP SCH (08:38)
[2018-08-07] MEDS: Nicotine 7 MG PATCH.TD24 TD SCH (08:48)
[2018-08-07] MEDS ORDERED: *HR* Propofol 200 MG/20 ML VIAL IVP ONE (10:02)
[2018-08-07] MEDS ORDERED: Lidocaine -MPF 4% 5 ML AMPUL ONE (10:02)
[2018-08-07] MEDS ORDERED: *HR* FentaNYL (PF) 100 MCG/2 ML VIAL ONE ×3 (10:02→13:50)
[2018-08-07] MEDS ORDERED: *HR* Midazolam HCl 2 MG/2 ML VIAL ONE (10:02)
[2018-08-07] MEDS ORDERED: *HR* Rocuronium Bromide 50 MG/5 ML VIAL ONE (10:02)
[2018-08-07] MEDS ORDERED: *HR* Succinylcholine 200 MG/10 ML VIAL IVP ONE (10:02)
[2018-08-07] MEDS ORDERED: Lidocaine -MPF 2% 2 ML VIAL ONE (10:02)
[2018-08-07] MEDS ORDERED: Dexamethasone 4 MG/ML VIAL ONE (10:02)
[2018-08-07] MEDS ORDERED: Ondansetron 4 MG/2 ML VIAL ONE (10:02)
--- NOTE | 2018-08-07 10:15 | Anesthesia Evaluation PreOp ---
Date of Encounter: 08/07/18 Time of Encounter: 10:37 - Past History Planned Operation: SIGMOID COLECTOMY, END COLOSTOMY Cardiac History: Denies any Significant Hx Pulmonary History: Smoker MANAGER OF MEDICAL History: Denies Any Significant HX Other Medical History: Other (DIVERTICULOSIS, WITH INTRAPERITONEAL ABCESS/FREE AIR, HYPOKALEMIA, HYPOPHOSPHOTEMIA) Anesthesia History: No Prior Anesthetic Complications, Past Anesthesia : No (HYST) Alcohol Use: none Drug use: marijuana Medications and Allergies Acetaminophen [Tylenol] 1,000 mg PO DAILY PRN 08/06/18 [History] Allergy/AdvReac Type Severity Reaction Status Date / Time diphenhydramine AdvReac "FEELS Verified 08/06/18 22:40 [From Benadryl] LIKE A HEART ATTACK, HEART RACES" hydrocodone [From Vicodin] AdvReac Vomiting Verified 08/06/18 22:40 - Meds/Allergy Pre-op Review Medications Reviewed: Yes Allergies Reviewed: Yes Anesthesia Results - Labs 08/07/18 05:41 08/07/18 05:41 Laboratory Tests 08/05/18 08/06/18 08/07/18 09:50 03:37 05:41 Calcium 8.3 L Phosphorus 2.5 L Total Bilirubin 1.2 H Direct Bilirubin 0.4 H Serum Total Protein 7.9 Albumin 4.0 Globulin 3.9 H Anesthesia Exam Vital Signs/O2 Sat/Glucose, Most Recent Temp Pulse Resp BP Pulse Ox 97.7 F 79 13 114/70 96 08/07/18 07:20 08/07/18 07:20 08/07/18 07:20 08/07/18 07:20 08/07/18 07:20 Weight: 76 KG - BMI 38 NPO (# of Hours): 8 - HEENT Mallampati: II Denture Type: Upper: Partial (AT HOME) Oral Opening: Greater than 3 - Cardiac Rhythm: Regular - Pulmonary Breath Sounds: bilateral Clear Respiratory Effort: Symmetrical Anesthesia Assess/Plan ASA Score: 3 Anesthetic Plan: General Autologous Blood: Yes (POSSIBLE) Monitoring Plan: Standard Monitors, A-Line (POSSIBLE), CVC Recovery Plan: PACU
[2018-08-07] MEDS ORDERED: Potassium Phosphate 44 MEQ in 0.9 % Sodium Chloride 250 ML IVPB ONE (10:20)
[2018-08-07] MEDS ORDERED: Water for inj (bacteriostatic) 30 ML VIAL IV ONE (10:54)
[2018-08-07] MEDS ORDERED: ROPIVACAINE HCL/PF 0.5% 30 ML VIAL ONE (10:54)
[2018-08-07] MEDS ORDERED: *HR* OxyCODONE Immed Rel 5 MG TABLET PO PRN (11:19)
[2018-08-07] MEDS ORDERED: *HR* HYDROmorphone (PF) 1 MG/ML SYRINGE IVP PRN (11:19)
[2018-08-07] MEDS ORDERED: *HR* Meperidine 25 MG/ML SYRINGE IVP PRN (11:19)
[2018-08-07] MEDS ORDERED: *HR* Promethazine 25 MG/ML VIAL IVP PRN (11:19)
[2018-08-07] MEDS ORDERED: Ondansetron 4 MG/2 ML VIAL IVP ONE (11:19)
[2018-08-07] MEDS ORDERED: Albuterol 2.5 MG/3 ML NEBULIZER IH ONE (11:19)
--- NOTE | 2018-08-07 11:30 | Anesthesia Procedures ---
Date of Encounter: 08/07/18 Time of Encounter: 11:23 Procedures: Anesthesia - Central Line Placement Right IJ Size / Length: 7 Fr / 16 cm Comments: Indication: Phlebothrombosis, Vascular access, hemodynamic monitoring - DIVERTI CULOSIS, PERFORATED, PERITONEAL ABCESS Performed by: Martin Leija MD Time: In OR after induction Right internal jugular 7 Fr 16 cm triple lumen central venous line - CPT 45632: Ultrasonic guidance for vascular access - CPT 41577 CHG skin prep, hand hygiene, gown, glove, mask, hat, full body drape. Real-time US guided, vessel patent, 18 ga needle, single attempt, dark non pulsatile blood return with respiratory variation. Guidewire and sheath mod. Seldinger tech. 3/0 silk suture. Sterile occlusive dressing and CHG biopatch. No apparent complications. CXR in PACU.
--- NOTE | 2018-08-07 12:50 | Operative Note ---
Date of procedure: 08/07/18 Pre-op diagnosis: Diverticulitis, bladder laceration Post-op diagnosis: same Procedure: Lysis of adhesions, repair of bladder laceration Implants: Trivedi catheter previously placed. Complications: None Anesthesia: OLIVEA Surgeon: Tray Horton Was there an assistant corporate secretary present: No Estimated blood loss (cc): 1 Specimen: none Condition: stable Disposition: PACU Procedure in Detail: Indications: 42-year-old woman with diverticulitis and new acute abdomen. She underwent an exploratory laparotomy and sigmoidectomy. Intraoperatively there was dense adhesions between the sigmoid colon/rectum and the bladder. I was asked to enter into the operating room to assist with lysis of adhesions and repair of bladder laceration that had occurred. Procedure: A laparotomy had previously been performed and the bowel was packed. Upon entering the operating room the rectum and sigmoid colon were well exposed. The left ureter was identified and reflected away. The sigmoid colon and rectum were densely adherent to the bladder. She previously had a hysterectomy. There was a small bladder laceration near the posterior wall. I proceeded with a combination of blunt and sharp dissection to free the colon away from the bladder. The posterior cul-de-sac was identified. The laceration of the bladder was small, proximal [address] Leonardo proceeded to remove the segment of diseased bowel. I then proceeded to close the bladder laceration. The urothelium was closed in a running fashion using 2-0 Monocryl suture. The muscle over top was closed in a running fashion using 2-0 Vicryl suture. The peritoneum was advanced over top of the laceration using a 2-0 Vicryl suture. A cystogram was performed. There was minor leak from the suture lines with 120 mL instilled into the bladder. At 60 mL there was no evidence of leak. At this point Dr. Leonardo took over the procedure.
[2018-08-07 13:05] LABS: VBG Base Excess -6 mEq/L; VBG Chloride 105 mEq/L (98-107); VBG Glucose 122 mg/dl (65-95); VBG HCO3 19 mEq/L (21-27); VBG Ionized Calcium 1.17 mmol/L (1.15-1.35); VBG Oxygen Saturation 75 %; VBG PCO2 35 mmHg (41-51); VBG PH 7.35 pH Units (7.32-7.42); VBG PO2 42 mmHg (25-50); VBG Total CO2 21 mEq/L
[2018-08-07] MEDS ORDERED: *HR* Magnesium Sulfate 1 GM/2 ML VIAL ONE (13:09)
[2018-08-07] MEDS ORDERED: *HR* HYDROMORPHONE 2 MG/ML VIAL ONE (13:33)
[2018-08-07] MEDS ORDERED: Neostigmine Methylsulfate 3 MG/3 ML SYRINGE ONE (13:39)
--- NOTE | 2018-08-07 14:46 | Anesthesia Procedures ---
Date of Encounter: 08/07/18 Time of Encounter: 14:15 Procedures: Anesthesia - Nerve Block Procedure Date: 08/07/18 Time: 14:15 Pre-op Diagnosis: abdominal abscess, diverticulosis Surgical Procedure: Goel pouch Checklist: Correct Patient Identifier, Correct procedure, History checked Blood Thinner: No Monitor Applied: EKG, BP, Pulse Oximetry, Other (done in OR after procedure) Indication: Post Op Analgesia Block Type: Other (TAP block) Sterile Technique: Yes Ultrasound used: Yes Anatomy identified: Yes Visual spread of Local: Yes Smooth Injection of Local: Yes Prep: Chlorhexadine Needle: 21 x 100 mm Stimuplex Local: Ropivacaine (30 cc 0.25% each side) Number of Attempts: 2 (one per side) Vitals: see anesthesia record Comments: assist per Dr Heladio Fox CRNA
--- NOTE | 2018-08-07 15:03 | Anesthesia Evaluation Post Op ---
Date of Encounter: 08/07/18 Time of Encounter: 15:03 - Discharge PostOp Status: Transfer Patient to floor (Patient's vital signs have been reviewed. Patient is stable postoperatively and has adequately recovered from anesthesia. Patient is determined to have stable airway patency and respiratory function including respiratory rate and oxygen saturation. Patient has a stable heart rate, blood pressure and adequate hydration. Patients mental status is acceptable. Patients temperature is appropriate. Pain and nausea are adequately controlled.)
--- NOTE | 2018-08-07 16:04 | Operative Note ---
Date of procedure: 08/07/18 Pre-op diagnosis: Perforated rectosigmoid diverticulitis, free air Post-op diagnosis: same (and intra-abdominal adhesions, bladder laceration) Procedure: Ex lap, rectosigmoid resection, takedown splenic flexure colon, colostomy wound vac placement incidental appendectomy repair bladder laceration Complications: bladder laceration Anesthesia: GETA Surgeon: Yanci Leonardo Was there an podiatric assistant present: No Hand Booked Folder And Stitcher Other: Dr Elizabeth Fields Estimated blood loss (cc): 100 Urine output (cc): 350 Specimen: see op report Condition: stable Disposition: PACU Procedure in Detail: specimens: rectosigmoid colon, appendix, omentum Procedure: Patient was brought into the operating suite and placed supine on the operating table. Sign-in was performed and everyone was in agreement. Anesthesia was induced and patient was endotracheally intubated by anesthesia without incident. A central line was placed by anesthesia and pastrana placed by circulating nurse. The abdomen was prepped and draped in the usual sterile fashion. Time out was performed and everyone was in agreement. A midline incision through the skin into the subcutaneous tissue was made with a 10 blade. Dissection through the subcutaneous tissue to the anterior abdominal wall fascia was made with the bovie. Kockers were placed on either side of the fascia for retraction and the abdomen was entered with bovie and the fascia incision elongated proximally and distally. The bookwalter was placed for exposure and retraction. Purulent appearing fluid was in the abdominal cavity and aerobic and anaerobic cultures were obtained. The small bowel was packed into the right upper quadrant. Omental adhesions to the small bowel and abdominal wall were taken down with metzenbaum scissors and the bovie. The sigmoid and proximal rectum were palpated and found to be extremely thick walled and inflammed. The sigmoid colon was taken off the left lateral side wall with the bovie and gentle blunt dissection. The proximal rectum was found to be densely adherent to the bladder. Dissection of the rectum off the bladder was extremely difficult due to significant inflammation and adhesion. There was inadvertent entry into the bladder. Urology was consulted intra-operatively for bladder repair and Dr Horton presented to the operating table. Continued dissection of the bladder off the rectum was accomplished with a right angle, bovie, and gentle blunt dissection. The left ureter was identified and kept out of harms way. An area of the left colon that was just proximal to the sigmoid inflammation was chosen for transection. An opening in the mesentary beneath this area was opened with the bovie and the descending colon was transected with a linear KITTY-75mm stapler using a blue load. An area of the rectum was chosen for transection that was just distal to the area of inflammation. An opening in the mesentary of the rectum was made bilaterally with the bovie and gentle blunt dissection postieriorly allowed a Contour staple green load to be used to transect the rectum. The mesentary of the rectosigmoid colon was taken down with the Impact ligasure. The diseased rectosigmoid colon was placed off to the backtable for pathology. A 2-0 prolene figure of eight stitch was placed on the staple line of the rectum for future identification. Dr Horton repaired the bladder laceration (small, about 2.0 cm) and his component of the operation is dictated separately. Dr Horton then left the operating room. The left colon and splenic flexure was taken down with gentle blunt dissection and the bovie. The mesentary of the descending colon was dissected free with the Impact ligasure ensuring the descending colon reached the anterior abdominal wall for colostomy creating. The appendix was grasped with a abebe and an opening beneath the appendix at the base fof he cecum was made with a khadra. The appendix was transected at the base of the cecum with a linear KITTY- 75mm stapler blue load. The mesoappendix was dissected with the impact ligasure. Appendix was placed off to the back table. The abdomen was copiously irrigated with sterile saline. A 19F Erasmo drain was trimmed and placed through the right lower quadrant after first incising the skin with a 11 blade. The drain was placed into the pelvis between the bladder and rectum, below the level of the bladder repair. The drain was secured to the skin with a 2-0 silk stitch. Omentum was brought down over the small bowel and interposed between the rectum and the posterior bladder wall. The NGT was palpated to be in appropriate posi tion in the stomach and was secured in place by anesthesia. Kockers were placed on the left fascia for retraction. An area above the umbilicus and along the left lateral rectus was chosen for the site of colostomy creation. A 2 cm circular area of skin was excised with a 15 blade. Dissection to the anterior abdominal wall at this site was accomplished with the bovie. A cruciate incision in the anterior rectus fascia was made with a bovie and a Khadra was used to spread the rectus fibers in the direction of the muscle fibers and the posterior rectus fascia was opened with the bovie. The opening in the rectus was dilated to accomodate two finger breadths. The left colon was brought through this opening with a abebe. Kockers were placed on either side of the fasia for retraction. The fascia was reapproximated with two seperate #1 PDS stitches running and meeting in the middle. The subcutaneous tissue was irrigated with sterile saline. The upper 2/3 of the incision subcutaneous tissue was reapproximated with 3-0 vicryl interuppted subcutaneous stitches. The skin of the upper 2/3 incision was closed with gil. Babcocks were placed on the left colon wall staple line and it was transected with heavy curved scissors. There was appropriate bleeding from the colon which was stopped with the bovie. The colostomy was created with 3-0 vicryl interrupted stitches full thickness colon wall to the subcutaneous tissue. A colostomy appliance was applied over the colostomy. A black foam was cut to fit the remaining lower 1/3 of the midline incision and a wound vac was placed, set to 125 mmHg continuous suction. Measured 6 cm longx 2.5 cm wide by 4.5 cm deep. Erasmo drain tubing was trimmed and bulb was applied. 4x4 gauze applied to midline incision, drain sponge placed. All lap and instrument counts were correct at the end of the case. Patient tolerated the procedure well. She was awoken by anesthesia and extubated in the OR without incident. Pastrana catheter and ngt remained with patient. She was taken to PACU in stable condition.
[2018-08-07] MEDS ORDERED: Naloxone 0.4 MG/ML INJ IVP PRN ×2 (16:27)
[2018-08-07] MEDS ORDERED: *HR* Metoprolol 5 MG/5 ML VIAL IVP PRN (16:27)
[2018-08-07] MEDS ORDERED: Ondansetron 4 MG/2 ML VIAL IVP PRN (16:27)
[2018-08-07] MEDS: *HR* HYDROmorphone 20 MG/20 ML PCA IVC PRN (17:16)
[2018-08-07] MEDS: Piperacillin/Tazobactam 3.375 GM in 0.9 % Sodium Chloride Mini Bag 100 ML IVPB SCH (17:28)
[2018-08-08] MEDS: Acetaminophen IV 1,000 MG/100 ML INFUS..BTL IVPB SCH ×4 (01:06→17:30)
[2018-08-08] MEDS: Piperacillin/Tazobactam 3.375 GM in 0.9 % Sodium Chloride Mini Bag 100 ML IVPB SCH ×3 (01:07→17:30)
[2018-08-08] MEDS: 0.9 % Sodium Chloride 1,000 ML IVC SCH ×3 (03:17→17:28)
[2018-08-08] MEDS: *HR* Heparin 5,000 UNIT/ML VIAL SQ SCH ×2 (06:15→17:30)
--- NOTE | 2018-08-08 08:32 | Urology Progress Note ---
Addendum entered and electronically signed by Tray Horton MD 08/08/18 16:09: The patient was seen and examined with the physician's nutritional assistant. I agree with the assessment and plan. She is doing well postop day #1. KAROL has been scant overnight. Trivedi is draining clear. Her pain is well-controlled with CAR DETAILER. We discussed the surgery today. I will have her continue catheter for 2 weeks. We will want to perform a cystogram prior to removal. She has been informed. We will arrange follow-up once she is able to be discharged. Appreciate general surgery support. Original Note: Date of Encounter: 08/08/18 Time of Encounter: 08:27 - Assessment and Plan (1) Laceration of bladder Current Visit: Yes Status: Acute Assessment and plan: Patient is a 42-year-old female who presents one day status post exploratory laparotomy, rectosigmoid resection, takedown splenic flexure colon, colostomy, wound vac placement, incidental appendectomy, and bladder laceration repair. Vital signs are currently stable and afebrile. Urine is clear, and catheter is draining sufficiently. Discussed indwelling Trivedi catheter for approximately 10 days with cystogram prior to catheter removal. Patient verbalizes understanding. Qualifiers: Qualified Code(s): S37.23XA - Laceration of bladder, initial encounter (2) Diverticulitis of large intestine with abscess Current Visit: Yes Status: Acute Qualifiers: Diverticulitis bleeding: with bleeding Qualified Code(s): K57.21 - Diverticulitis of large intestine with perforation and abscess with bleeding Progress Note Subjective: no new complaints Narrative: POD #1. Patient seen and examined sitting upright in bed in no apparent distress. Trivedi catheter is indwelling and draining clear urine into bedside bag. Patient denies any catheter discomfort or feeling of obstruction. Patient denies any fever, chills, chest pain, dyspnea. Objective Initial Vital Signs Temp Pulse Resp BP Pulse Ox 97.8 F 135 16 118/86 97 08/05/18 08:44 08/05/18 08:44 08/05/18 08:44 08/05/18 08:44 08/05/18 08:44 - General physical appearance Present: well developed, no distress, no pain - Respiratory Present: normal expansion, normal respiratory effort - Genitourinary Urine Appearance: Present: Clear - Integumentary Present: no rash, no abnormal pigmentation - Musculoskeletal Present: normal posture - Psychiatric Present: oriented to time, oriented to person, oriented to place, speech is normal, memory intact - Labs 08/07/18 05:41 08/07/18 05:41 Diabetes panel 08/07/18 Range/Units 05:41 Sodium 136 (136-145) mEq/L Potassium 3.4 L (3.5-5.1) mEq/L Chloride 110 H (98-107) mEq/L Carbon Dioxide 21 L (23-29) mEq/L BUN 5 L (6-20) mg/dL Creatinine 0.59 L (0.60-1.20) mg/dL Glucose 102 (70-105) mg/dL Calcium 8.3 L (8.6-10.3) mg/dL Calcium panel 08/07/18 Range/Units 05:41 Calcium 8.3 L (8.6-10.3) mg/dL Pituitary panel 08/07/18 Range/Units 05:41 Sodium 136 (136-145) mEq/L Potassium 3.4 L (3.5-5.1) mEq/L Chloride 110 H (98-107) mEq/L Carbon Dioxide 21 L (23-29) mEq/L BUN 5 L (6-20) mg/dL Creatinine 0.59 L (0.60-1.20) mg/dL Glucose 102 (70-105) mg/dL Calcium 8.3 L (8.6-10.3) mg/dL Adrenal panel 08/07/18 Range/Units 05:41 Sodium 136 (136-145) mEq/L Potassium 3.4 L (3.5-5.1) mEq/L Chloride 110 H (98-107) mEq/L Carbon Dioxide 21 L (23-29) mEq/L BUN 5 L (6-20) mg/dL Creatinine 0.59 L (0.60-1.20) mg/dL Glucose 102 (70-105) mg/dL Calcium 8.3 L (8.6-10.3) mg/dL Consult Discharge Plan - Plan Referrals: Beverly White, [employer] [Advanced Practice Nurse] -
[2018-08-08] MEDS: Pantoprazole 40 MG VIAL IVP SCH (09:32)
[2018-08-08] MEDS: Nicotine 7 MG PATCH.TD24 TD SCH (09:32)
--- NOTE | 2018-08-08 10:37 | General Surgery Progress Note ---
<Kaci Marks - Last Filed: 08/08/18 14:44> Date of Encounter: 08/08/18 Time of Encounter: 13:00 - Assessment and Plan (1) Diverticulitis of large intestine with abscess Current Visit: Yes Status: Acute POD #1 Ex lap, rectosigmoid resection, takedown splenic flexure colon, colostomy, wound vac placement, incidental appendectomy with Dr. Leonardo Repair bladder laceration with Urology NPO NG tube to LIWS IV fluids Continue OFFSET SECOND PRESS OPERATOR for pain control Scheduled ofirmev IV antibiotics- Zosyn IS every 1 hour while awake Wound vac therapy- change per surgery team 08/09/18 Continue pastrana catheter with NO manipulation- management per urology and surgery team ONLY Strict I&Os PPI therapy daily Wound care consult for ostomy teaching Repeat am labs- CBC, BMP Out of bed to chair 08/09/18 Qualifiers: Diverticulitis bleeding: with bleeding Qualified Code(s): K57.21 - Diverticulitis of large intestine with perforation and abscess with bleeding (2) Laceration of bladder Current Visit: Yes Status: Acute Repaired per urology Continue pastrana catheter with NO manipulation. Management per urology and surgery team Strict I&Os Qualifiers: Qualified Code(s): S37.23XA - Laceration of bladder, initial encounter (3) DVT prophylaxis Current Visit: Yes Status: Acute Heparin 5,000 units SQ twice daily for DVT prophylaxis Subjective Patient reports: no new complaints, feels better, still having pain (expected post-operative pain), no flatus, no bowel movement, afebrile Objective Vital Signs - Last 8 Hours Temp Pulse Resp BP Pulse Ox 08/08/18 06:54 98.6 F 91 16 94/56 91 08/08/18 03:30 97.6 F 75 18 105/65 92 Intake and Output 08/07/18 08/08/18 08/08/18 23:59 07:59 15:59 Intake Total 200 / 200 1300 / 1300 Output Total 300 / 300 340 / 340 Balance -100 / -100 960 / 960 Intake: IV Fluids 200 / 200 1300 / 1300 0.9 % Sodium Chloride 1,000 ML 1000 / 1000 @ 110 mls/hr IVC .Q9H6M [facility] Rx# :[id number] Ofirmev 1,000 mg/100 ml 1,000 100 / 100 200 / 200 mg In 100 ml @ 400 mls/hr IVPB Q6HR [facility] Rx#:[id number] Zosyn 3.375 GM In 0.9 % Sodium 100 / 100 100 / 100 Chloride (Mini-Bag +) 100 ML @ 25 mls/hr IVPB Q8HR [facility] Rx#: [id number] Oral 0 / 0 Output: Urine 300 / 300 Gastric Tube Lavage Amount 0 / 0 Right Nare 0 / 0 Straight Cath 300 / 300 Wound Drainage 0 / 0 40 / 40 Lower Abdomen 40 / 40 Midline 0 / 0 Other: Meal NPO Weight 75 kg Blood Glucose* 108 87 Patient Weight 08/08/18 23:59 Weight 75 kg - General physical appearance well developed, well nourished, moderate pain (expected) - Eyes normal ocular movement - ENT dry mucosa, atraumatic, normocephalic - Neck Neck exam: trachea midline - Respiratory normal respiratory effort, clear to auscultation - Cardiovascular Cardiovascular exam: Present: RRR - Abdomen Abdomen: Present: bowel sounds present (hypoactive), soft, tender (expected tenderness), wound (Ostomy is pink and moist (no flatus or stool noted); Wound vac intact; KAROL drain with serousang. drainage noted) - Incision Incision: Present: clean and dry, intact, serosanguinous (Wound vac intact; KAROL drain secure) - Genitourinary other (Pastrana catheter to SD with clear, yellow urine noted) - Neurologic CN 2-12 grossly intact - Psychiatric oriented to time, oriented to person, oriented to place, speech is normal, memory intact - Labs 08/07/18 05:41 08/07/18 05:41 Diabetes panel 08/07/18 Range/Units 05:41 Sodium 136 (136-145) mEq/L Potassium 3.4 L (3.5-5.1) mEq/L Chloride 110 H (98-107) mEq/L Carbon Dioxide 21 L (23-29) mEq/L BUN 5 L (6-20) mg/dL Creatinine 0.59 L (0.60-1.20) mg/dL Glucose 102 (70-105) mg/dL Calcium 8.3 L (8.6-10.3) mg/dL Calcium panel 08/07/18 Range/Units 05:41 Calcium 8.3 L (8.6-10.3) mg/dL Pituitary panel 08/07/18 Range/Units 05:41 Sodium 136 (136-145) mEq/L Potassium 3.4 L (3.5-5.1) mEq/L Chloride 110 H (98-107) mEq/L Carbon Dioxide 21 L (23-29) mEq/L BUN 5 L (6-20) mg/dL Creatinine 0.59 L (0.60-1.20) mg/dL Glucose 102 (70-105) mg/dL Calcium 8.3 L (8.6-10.3) mg/dL Adrenal panel 08/07/18 Range/Units 05:41 Sodium 136 (136-145) mEq/L Potassium 3.4 L (3.5-5.1) mEq/L Chloride 110 H (98-107) mEq/L Carbon Dioxide 21 L (23-29) mEq/L BUN 5 L (6-20) mg/dL Creatinine 0.59 L (0.60-1.20) mg/dL Glucose 102 (70-105) mg/dL Calcium 8.3 L (8.6-10.3) mg/dL Consult Discharge Plan - Plan Referrals: Beverly White, MARKETING TEACHER [Advanced Practice Nurse] - - Attending Attestation For this encounter, I have reviewed the FIRE PROTECTION INSPECTOR or PA documentation, treatment plan, and medical decision making; and I have had face to face time with this patient. <Yanci Leonardo - Last Filed: 08/09/18 09:22> Date of Encounter: 08/08/18 - Assessment and Plan (1) Leukocytosis Current Visit: Yes Status: Acute continue antibiotics trend wbc, no bandemia, expected postoperatively awaiting peritoneal cultures Qualifiers: Leukocytosis type: unspecified Qualified Code(s): D72.829 - Elevated white blood cell count, unspecified (2) Tobacco abuse Current Visit: Yes Status: Chronic (3) Diverticulitis of large intestine with abscess Current Visit: Yes Status: Acute pod 1 ex lap, umm, rectosigmoid resection npo ngt to liws cloth printer helper for pain control, appears well controlled, cont ofirmev ivf hydration continue patsrana, bladder laceration repair - DO NOT REMOVE continue antibiotics gi/dvt prophylaxis consult for ostomy teaching OOB to chair Qualifiers: Diverticulitis bleeding: with bleeding Qualified Code(s): K57.21 - Diverticulitis of large intestine with perforation and abscess with bleeding Subjective Patient reports: feels better, still having pain, no flatus, no bowel movement, afebrile Objective Vital Signs - Last 8 Hours Temp Pulse Resp BP Pulse Ox 08/09/18 05:07 98.6 F 100 13 100/64 95 Intake and Output 08/08/18 08/09/18 08/09/18 23:59 07:59 15:59 Intake Total 1200 / 1200 1100 / 1100 Output Total 1730 / 1730 0 / 0 Balance 1200 / 1200 -630 / -630 0 / 0 Intake: IV Fluids 1200 / 1200 1100 / 1100 0.9 % Sodium Chloride 1,000 ML 1000 / 1000 800 / 800 @ 110 mls/hr IVC .Q9H6M [facility] Rx# :[id number] Ofirmev 1,000 mg/100 ml 1,000 100 / 100 200 / 200 mg In 100 ml @ 400 mls/hr IVPB Q6HR [facility] Rx#:[id number] Zosyn 3.375 GM In 0.9 % Sodium 100 / 100 100 / 100 Chloride (Mini-Bag +) 100 ML @ 25 mls/hr IVPB Q8HR [facility] Rx#: [id number] Output: Urine 150 / 150 Stool 0 / 0 Gastric Tube Lavage Amount 150 / 150 Right Nare 150 / 150 Catheter 1400 / 1400 Urethral (Pastrana) 1200 / 1200 Wound Drainage 30 / 30 0 / 0 Lower Abdomen 0 / 0 0 / 0 Midline 0 / 0 Right Lower Abdomen 30 / 30 0 / 0 Other: Weight 81.3 kg Blood Glucose* 82 73 Patient Weight 08/09/18 23:59 Weight 81.3 kg - General physical appearance well developed, well nourished, no distress, moderate pain - Eyes normal ocular movement - ENT normal mucosa, normocephalic - Neck Neck exam: trachea midline - Respiratory normal expansion, normal respiratory effort - Cardiovascular Cardiovascular exam: Present: RRR - Abdomen Abdomen: Present: bowel sounds present, soft, tender (appropriate post op tenderness), wound Additional Comments: colostomy - pink viable, bowel sweat, no stool or flatus yessy drain - serous - Incision Incision: Present: clean and dry, intact, open (wound vac in place, serous drainge) - Genitourinary other - Integumentary no rash, no growths - Neurologic CN 2-12 grossly intact - Musculoskeletal normal posture - Psychiatric oriented to time, oriented to person, oriented to place, speech is normal - Labs 08/09/18 05:25 08/09/18 05:25 Diabetes panel 08/09/18 Range/Units 05:25 Sodium 135 L (136-145) mEq/L Potassium 4.0 (3.5-5.1) mEq/L Chloride 106 (98-107) mEq/L Carbon Dioxide 22 L (23-29) mEq/L BUN 4 L (6-20) mg/dL Creatinine 0.45 L (0.60-1.20) mg/dL Glucose 79 (70-105) mg/dL Calcium 7.4 L (8.6-10.3) mg/dL Calcium panel 08/09/18 Range/Units 05:25 Calcium 7.4 L (8.6-10.3) mg/dL Phosphorus 2.4 L (2.7-4.5) mg/dL Pituitary panel 08/09/18 Range/Units 05:25 Sodium 135 L (136-145) mEq/L Potassium 4.0 (3.5-5.1) mEq/L Chloride 106 (98-107) mEq/L Carbon Dioxide 22 L (23-29) mEq/L BUN 4 L (6-20) mg/dL Creatinine 0.45 L (0.60-1.20) mg/dL Glucose 79 (70-105) mg/dL Calcium 7.4 L (8.6-10.3) mg/dL Adrenal panel 08/09/18 Range/Units 05:25 Sodium 135 L (136-145) mEq/L Potassium 4.0 (3.5-5.1) mEq/L Chloride 106 (98-107) mEq/L Carbon Dioxide 22 L (23-29) mEq/L BUN 4 L (6-20) mg/dL Creatinine 0.45 L (0.60-1.20) mg/dL Glucose 79 (70-105) mg/dL Calcium 7.4 L (8.6-10.3) mg/dL - Attending Attestation I have personally performed a face to face evaluation on this patient. I have reviewed and agree with the care plan. History and Exam by me shows:
[2018-08-08] MEDS: *HR* HYDROmorphone 20 MG/20 ML PCA IVC PRN (15:20)
[2018-08-09] MEDS: 0.9 % Sodium Chloride 1,000 ML IVC SCH ×2 (00:27→09:26)
[2018-08-09] MEDS: Acetaminophen IV 1,000 MG/100 ML INFUS..BTL IVPB SCH ×4 (00:27→17:26)
[2018-08-09] MEDS: Piperacillin/Tazobactam 3.375 GM in 0.9 % Sodium Chloride Mini Bag 100 ML IVPB SCH ×3 (00:31→16:00)
[2018-08-09] MEDS ORDERED: Dextrose 4 GM Chewable Tablets PO PRN ×2 (01:26)
[2018-08-09] MEDS ORDERED: D5% in Water 1,000 ML IVC PRN (01:26)
[2018-08-09] MEDS ORDERED: Dextrose Gel 15 GM/37.5 ML TUBE PO PRN ×2 (01:26)
[2018-08-09] MEDS: *HR* Dextrose 50 % in Water (Syg) 50 ML SYRINGE IVP PRN (01:38)
[2018-08-09] MEDS: *HR* Heparin 5,000 UNIT/ML VIAL SQ SCH ×2 (05:16→17:25)
[2018-08-09 05:38] LABS: Basophils % 0.3 %; Eosinophils # 0.3 K/mcL (0.0-0.6); Hematocrit 32.2 % (35.3-44.9); Hemoglobin 10.5 g/dL (11.5-15.4); Immature Granulocytes % 0.7 % (0-4); Lymphocytes # 1.4 K/mcL (0.6-4.6); Lymphocytes % 9.1 %; Mean Corpuscular HGB Conc 32.6 g/dL (31.6-35.5); Mean Corpuscular Hemoglobin 30.6 pg (28.0-33.3); Mean Corpuscular Volume 93.9 fL (83.0-100.0); Mean Platelet Volume 9.3 fL (9.4-12.4); Monocytes # 0.8 K/mcL (0.0-1.3); Neutrophils # 12.5 K/mcL (1.6-8.9); Platelet Count 324 K/mcL (140-400); Red Blood Count 3.43 M/mcL (3.82-4.97); Red Cell Distribution Width 15.3 % (11.5-14.5); Segmented Neutrophils % 82.9 %
[2018-08-09 05:42] LABS: Basophils # 0.1 K/mcL (0.0-0.2)
[2018-08-09 05:56] LABS: BUN/Creatinine Ratio 9 (6-26); Blood Urea Nitrogen 4 mg/dL (6-20); Calcium 7.4 mg/dL (8.6-10.3); Carbon Dioxide 22 mEq/L (23-29); Chloride 106 mEq/L (98-107); Glucose 79 mg/dL (70-105); Osmolality,Calculated 276 (280-300); Phosphorous 2.4 mg/dL (2.7-4.5); Sodium 135 mEq/L (136-145); eGFR For Non-African Americans > 60 (> 60)
--- NOTE | 2018-08-09 07:32 | Urology Progress Note ---
Date of Encounter: 08/09/18 Time of Encounter: 07:29 - Assessment and Plan (1) Laceration of bladder Current Visit: Yes Status: Acute Assessment and plan: POD #2 s/p repair of bladder laceration. Patient is doing well. 1. Continue pastrana catheter x 14 days. Cystogram prior to removal. 2. Will send KAROL for creatinine. If consistent with serum, it would be okay to remove. 3. Urology will follow along. Qualifiers: Encounter type: subsequent encounter Qualified Code(s): S37.23XD - Laceration of bladder, subsequent encounter Progress Note Narrative: POD #2 s/p repair of bladder laceration. Urine is draining well. She is having some pain from the KAROL drain when it comes off suction to empty. No gas out ostomy yet. Objective Initial Vital Signs Temp Pulse Resp BP Pulse Ox 97.8 F 135 16 118/86 97 08/05/18 08:44 08/05/18 08:44 08/05/18 08:44 08/05/18 08:44 08/05/18 08:44 - General physical appearance Present: well developed, well nourished, no distress - Respiratory Present: normal respiratory effort - Abdomen Present: tender (appropriately tender, nd. ostomy pink. KAROL is serous.) - Genitourinary Present: other (Pastrana catheter in place with clear urine.) - Labs 08/09/18 05:25 08/09/18 05:25 Diabetes panel 08/09/18 Range/Units 05:25 Sodium 135 L (136-145) mEq/L Potassium 4.0 (3.5-5.1) mEq/L Chloride 106 (98-107) mEq/L Carbon Dioxide 22 L (23-29) mEq/L BUN 4 L (6-20) mg/dL Creatinine 0.45 L (0.60-1.20) mg/dL Glucose 79 (70-105) mg/dL Calcium 7.4 L (8.6-10.3) mg/dL Calcium panel 08/09/18 Range/Units 05:25 Calcium 7.4 L (8.6-10.3) mg/dL Phosphorus 2.4 L (2.7-4.5) mg/dL Pituitary panel 08/09/18 Range/Units 05:25 Sodium 135 L (136-145) mEq/L Potassium 4.0 (3.5-5.1) mEq/L Chloride 106 (98-107) mEq/L Carbon Dioxide 22 L (23-29) mEq/L BUN 4 L (6-20) mg/dL Creatinine 0.45 L (0.60-1.20) mg/dL Glucose 79 (70-105) mg/dL Calcium 7.4 L (8.6-10.3) mg/dL Adrenal panel 08/09/18 Range/Units 05:25 Sodium 135 L (136-145) mEq/L Potassium 4.0 (3.5-5.1) mEq/L Chloride 106 (98-107) mEq/L Carbon Dioxide 22 L (23-29) mEq/L BUN 4 L (6-20) mg/dL Creatinine 0.45 L (0.60-1.20) mg/dL Glucose 79 (70-105) mg/dL Calcium 7.4 L (8.6-10.3) mg/dL Consult Discharge Plan - Plan Referrals: Beverly White, HISTORIOGRAPHER [Advanced Practice Nurse] -
[2018-08-09] MEDS: Pantoprazole 40 MG VIAL IVP SCH (07:38)
[2018-08-09] MEDS: Nicotine 7 MG PATCH.TD24 TD SCH (07:43)
[2018-08-09] MEDS ORDERED: Fluconazole 400 MG/200 ML 400 MG/200 ML BAG IVPB ONE (09:06)
--- NOTE | 2018-08-09 12:00 | General Surgery Progress Note ---
<Kaci Marks - Last Filed: 08/09/18 11:58> Date of Encounter: 08/09/18 Time of Encounter: 11:45 - Assessment and Plan (1) Diverticulitis of large intestine with abscess Current Visit: Yes Status: Acute POD #2 Ex lap, rectosigmoid resection, takedown splenic flexure colon, colostomy, wound vac placement, incidental appendectomy with Dr. Leonardo Repair bladder laceration with Urology Pathology pending NPO NG tube to LIWS IV fluids Continue APPLICATION SUPPORT for pain control Scheduled ofirmev IV antibiotics- Zosyn, added antifungal Diflucan (load with 800mg and then 400mg daily) IS every 1 hour while awake Wound vac therapy- change per surgery team today and then next change 08/13/18 Continue pastrana catheter with NO manipulation- management per urology and surgery team ONLY Strict I&Os PPI therapy daily Wound care consult for ostomy teaching Repeat am labs- CBC, BMP Out of bed to chair, ambulate 08/09/18 Qualifiers: Diverticulitis bleeding: with bleeding Qualified Code(s): K57.21 - Diverticulitis of large intestine with perforation and abscess with bleeding (2) Laceration of bladder Current Visit: Yes Status: Acute Repaired per urology Continue pastrana catheter with NO manipulation. Management per urology and surgery team Strict I&Os Qualifiers: Encounter type: subsequent encounter Qualified Code(s): S37.23XD - Laceration of bladder, subsequent encounter (3) DVT prophylaxis Current Visit: Yes Status: Acute Heparin 5,000 units SQ twice daily for DVT prophylaxis Increase activity as tolerated Subjective Patient reports: no new complaints, feels better, still having pain, pain is less, no flatus, no bowel movement, afebrile, other (Patient out of bed to chair yesterday and states that she is going to walk today.) Objective Vital Signs - Last 8 Hours Temp Pulse Resp BP Pulse Ox 08/09/18 10:53 97.6 F 96 16 106/74 95 08/09/18 08:15 95 08/09/18 05:07 98.6 F 100 13 100/64 95 Intake and Output 08/08/18 08/09/18 08/09/18 23:59 07:59 15:59 Intake Total 1200 / 1200 1100 / 1100 300 / 300 Output Total 1730 / 1730 600 / 600 Balance 1200 / 1200 -630 / -630 -300 / -300 Intake: IV Fluids 1200 / 1200 1100 / 1100 300 / 300 0.9 % Sodium Chloride 1,000 ML 1000 / 1000 800 / 800 200 / 200 @ 110 mls/hr IVC .Q9H6M [facility] Rx# :[id number] Ofirmev 1,000 mg/100 ml 1,000 100 / 100 200 / 200 mg In 100 ml @ 400 mls/hr IVPB Q6HR [facility] Rx#:[id number] Zosyn 3.375 GM In 0.9 % Sodium 100 / 100 100 / 100 100 / 100 Chloride (Mini-Bag +) 100 ML @ 25 mls/hr IVPB Q8HR [facility] Rx#: [id number] Oral 0 / 0 Output: Urine 150 / 150 Stool 0 / 0 0 / 0 Gastric Tube Lavage Amount 150 / 150 0 / 0 Right Nare 150 / 150 0 / 0 Catheter 1400 / 1400 600 / 600 Urethral (Pastrana) 1200 / 1200 Wound Drainage 30 / 30 0 / 0 Lower Abdomen 0 / 0 0 / 0 Midline 0 / 0 0 / 0 Right Lower Abdomen 30 / 30 0 / 0 Other: Meal BREAKFAST NPO Percent of Meal Consumed 0% Weight 81.3 kg Blood Glucose* 82 73 70 Patient Weight 08/09/18 23:59 Weight 81.3 kg - General physical appearance well developed, well nourished, no distress - Eyes normal ocular movement - ENT dry mucosa, atraumatic, normocephalic - Neck Neck exam: trachea midline - Respiratory normal respiratory effort, clear to auscultation - Cardiovascular Cardiovascular exam: Present: RRR - Abdomen Abdomen: Present: bowel sounds present (minimal, hypoactive), soft, tender (Expected tenderness), wound (Ostomy is pink and moist; KAROL drain with serosanguineous drainage noted (30ml since MN); NG tube to LIWS (200ml since MN); Wound vac with serousang. drainage noted.) - Incision Incision: Present: serosanguinous (KAROL drain RLQ; Wound vac to midline) - Genitourinary other (Pastrana catheter to straight drain with clear, yellow urine) - Neurologic CN 2-12 grossly intact - Psychiatric oriented to time, oriented to person, oriented to place, speech is normal, memory intact - Labs 08/09/18 05:25 08/09/18 05:25 Diabetes panel 08/09/18 Range/Units 05:25 Sodium 135 L (136-145) mEq/L Potassium 4.0 (3.5-5.1) mEq/L Chloride 106 (98-107) mEq/L Carbon Dioxide 22 L (23-29) mEq/L BUN 4 L (6-20) mg/dL Creatinine 0.45 L (0.60-1.20) mg/dL Glucose 79 (70-105) mg/dL Calcium 7.4 L (8.6-10.3) mg/dL Calcium panel 08/09/18 Range/Units 05:25 Calcium 7.4 L (8.6-10.3) mg/dL Phosphorus 2.4 L (2.7-4.5) mg/dL Pituitary panel 08/09/18 Range/Units 05:25 Sodium 135 L (136-145) mEq/L Potassium 4.0 (3.5-5.1) mEq/L Chloride 106 (98-107) mEq/L Carbon Dioxide 22 L (23-29) mEq/L BUN 4 L (6-20) mg/dL Creatinine 0.45 L (0.60-1.20) mg/dL Glucose 79 (70-105) mg/dL Calcium 7.4 L (8.6-10.3) mg/dL Adrenal panel 08/09/18 Range/Units 05:25 Sodium 135 L (136-145) mEq/L Potassium 4.0 (3.5-5.1) mEq/L Chloride 106 (98-107) mEq/L Carbon Dioxide 22 L (23-29) mEq/L BUN 4 L (6-20) mg/dL Creatinine 0.45 L (0.60-1.20) mg/dL Glucose 79 (70-105) mg/dL Calcium 7.4 L (8.6-10.3) mg/dL Consult Discharge Plan - Plan Referrals: Beverly White, POTABLE WATER TREATMENT OPERATOR [Advanced Practice Nurse] - - Attending Attestation For this encounter, I have reviewed the DISPATCHER CHIEF OIL or PA documentation, treatment plan, and medical decision making; and I have had face to face time with this patient. <Everardo Najera - Last Filed: 08/09/18 12:16> Date of Encounter: 08/09/18 Objective Vital Signs - Last 8 Hours Temp Pulse Resp BP Pulse Ox 08/09/18 10:53 97.6 F 96 16 106/74 95 08/09/18 08:15 95 08/09/18 05:07 98.6 F 100 13 100/64 95 Intake and Output 08/08/18 08/09/18 08/09/18 23:59 07:59 15:59 Intake Total 1200 / 1200 1100 / 1100 600 / 600 Output Total 1730 / 1730 600 / 600 Balance 1200 / 1200 -630 / -630 0 / 0 Intake: IV Fluids 1200 / 1200 1100 / 1100 600 / 600 0.9 % Sodium Chloride 1,000 ML 1000 / 1000 800 / 800 200 / 200 @ 110 mls/hr IVC .Q9H6M [facility] Rx# :[id number] Ofirmev 1,000 mg/100 ml 1,000 100 / 100 200 / 200 100 / 100 mg In 100 ml @ 400 mls/hr IVPB Q6HR [facility] Rx#:[id number] Diflucan Premix 400 MG/200 ML 200 / 200 400 mg In 200 ml @ 100 mls/hr IVPB ONCE ONE Rx#:[id number] Zosyn 3.375 GM In 0.9 % Sodium 100 / 100 100 / 100 100 / 100 Chloride (Mini-Bag +) 100 ML @ 25 mls/hr IVPB Q8HR [facility] Rx#: [id number] Oral 0 / 0 Output: Urine 150 / 150 Stool 0 / 0 0 / 0 Gastric Tube Lavage Amount 150 / 150 0 / 0 Right Nare 150 / 150 0 / 0 Catheter 1400 / 1400 600 / 600 Urethral (Pastrana) 1200 / 1200 Wound Drainage 30 / 30 0 / 0 Lower Abdomen 0 / 0 0 / 0 Midline 0 / 0 0 / 0 Right Lower Abdomen 30 / 30 0 / 0 Other: Meal BREAKFAST NPO Percent of Meal Consumed 0% Weight 81.3 kg Blood Glucose* 82 73 70 Patient Weight 08/09/18 23:59 Weight 81.3 kg - Labs 08/09/18 05:25 08/09/18 05:25 Diabetes panel 08/09/18 Range/Units 05:25 Sodium 135 L (136-145) mEq/L Potassium 4.0 (3.5-5.1) mEq/L Chloride 106 (98-107) mEq/L Carbon Dioxide 22 L (23-29) mEq/L BUN 4 L (6-20) mg/dL Creatinine 0.45 L (0.60-1.20) mg/dL Glucose 79 (70-105) mg/dL Calcium 7.4 L (8.6-10.3) mg/dL Calcium panel 08/09/18 Range/Units 05:25 Calcium 7.4 L (8.6-10.3) mg/dL Phosphorus 2.4 L (2.7-4.5) mg/dL Pituitary panel 08/09/18 Range/Units 05:25 Sodium 135 L (136-145) mEq/L Potassium 4.0 (3.5-5.1) mEq/L Chloride 106 (98-107) mEq/L Carbon Dioxide 22 L (23-29) mEq/L BUN 4 L (6-20) mg/dL Creatinine 0.45 L (0.60-1.20) mg/dL Glucose 79 (70-105) mg/dL Calcium 7.4 L (8.6-10.3) mg/dL Adrenal panel 08/09/18 Range/Units 05:25 Sodium 135 L (136-145) mEq/L Potassium 4.0 (3.5-5.1) mEq/L Chloride 106 (98-107) mEq/L Carbon Dioxide 22 L (23-29) mEq/L BUN 4 L (6-20) mg/dL Creatinine 0.45 L (0.60-1.20) mg/dL Glucose 79 (70-105) mg/dL Calcium 7.4 L (8.6-10.3) mg/dL - Attending Attestation patient seen and examined. i have reviewed all labs, imaging, and notes. i agree with the above assessment and plan and wish to add the following... activity as tolerated awaiting return of bowel function
[2018-08-09] MEDS ORDERED: Chloraseptic Spray 177 ML BOTTLE MM PRN (15:47)
[2018-08-09] MEDS ORDERED: 0.9 % Sodium Chloride Mini Bag 100 ML ONE (15:56)
[2018-08-09] MEDS: *HR* HYDROmorphone 20 MG/20 ML PCA IVC PRN (17:06)
[2018-08-10] MEDS: Piperacillin/Tazobactam 3.375 GM in 0.9 % Sodium Chloride Mini Bag 100 ML IVPB SCH ×3 (00:02→15:40)
[2018-08-10] MEDS: Acetaminophen IV 1,000 MG/100 ML INFUS..BTL IVPB SCH ×5 (00:03→18:12)
[2018-08-10] MEDS: *HR* Dextrose 50 % in Water (Syg) 50 ML SYRINGE IVP PRN ×2 (00:06→05:56)
[2018-08-10] MEDS: *HR* Heparin 5,000 UNIT/ML VIAL SQ SCH ×2 (05:12→18:12)
[2018-08-10] MEDS: 0.9 % Sodium Chloride 1,000 ML IVC SCH ×5 (05:13→22:43)
[2018-08-10 05:33] LABS: Basophils % 0.2 %; Eosinophils # 0.5 K/mcL (0.0-0.6); Eosinophils % 3.8 %; Hematocrit 30.5 % (35.3-44.9); Hemoglobin 9.8 g/dL (11.5-15.4); Immature Granulocytes % 0.7 % (0-4); Lymphocytes # 1.1 K/mcL (0.6-4.6); Lymphocytes % 8.8 %; Mean Corpuscular HGB Conc 32.1 g/dL (31.6-35.5); Mean Corpuscular Hemoglobin 30.4 pg (28.0-33.3); Mean Corpuscular Volume 94.7 fL (83.0-100.0); Mean Platelet Volume 9.2 fL (9.4-12.4); Monocytes # 0.6 K/mcL (0.0-1.3); Monocytes % 4.9 %; Neutrophils # 10.4 K/mcL (1.6-8.9); Platelet Count 310 K/mcL (140-400); Red Blood Count 3.22 M/mcL (3.82-4.97); Red Cell Distribution Width 15.2 % (11.5-14.5); Segmented Neutrophils % 81.6 %
[2018-08-10 05:51] LABS: BUN/Creatinine Ratio 10 (6-26); Blood Urea Nitrogen 4 mg/dL (6-20); Calcium 7.6 mg/dL (8.6-10.3); Carbon Dioxide 21 mEq/L (23-29); Chloride 108 mEq/L (98-107); Glucose 70 mg/dL (70-105); Osmolality,Calculated 277 (280-300); Potassium 3.6 mEq/L (3.5-5.1); Sodium 136 mEq/L (136-145); eGFR For Non-African Americans > 60 (> 60)
[2018-08-10] MEDS: MetroNIDAZOLE 500 MG/100 ML 500 MG/100 ML BAG IVPB SCH (07:34)
--- NOTE | 2018-08-10 08:40 | Urology Progress Note ---
Addendum entered and electronically signed by Tray Horton MD 08/10/18 15:09: The patient was seen and examined with the physician's television production assistant. I agree with the assessment and plan. She is doing well today after repair of bladder laceration, postoperative day #3. KAROL creatinine was consistent with serum. Primary team can remove KAROL when no longer needed. Continue Trivedi catheter for a total of 14 days with a cystogram prior to removal. Urology will follow along. Original Note: Date of Encounter: 08/10/18 Time of Encounter: 08:20 - Assessment and Plan (1) Laceration of bladder Current Visit: Yes Status: Acute Assessment and plan: Patient is a 42-year-old female who presents 3 days status post intraoperative bladder laceration repair. Vital signs are stable and afebrile. Trivedi catheter is indwelling and draining clear urine sufficiently. Patient is aware she will require a cystogram before indwelling Trivedi catheter removal in 14 days. Qualifiers: Encounter type: subsequent encounter Qualified Code(s): S37.23XD - Laceration of bladder, subsequent encounter (2) Diverticulitis of large intestine with abscess Current Visit: Yes Status: Acute Qualifiers: Diverticulitis bleeding: with bleeding Qualified Code(s): K57.21 - Diverticulitis of large intestine with perforation and abscess with bleeding Progress Note Subjective: no new complaints Narrative: POD #3. Patient seen and examined lying in bed in no apparent distress. Trivedi catheter is indwelling and draining clear urine into bedside bag. Patient r eports no new urologic concerns. Objective Initial Vital Signs Temp Pulse Resp BP Pulse Ox 97.8 F 135 16 118/86 97 08/05/18 08:44 08/05/18 08:44 08/05/18 08:44 08/05/18 08:44 08/05/18 08:44 - General physical appearance Present: well developed, no distress, no pain - Respiratory Present: normal expansion, normal respiratory effort - Abdomen Present: soft - Genitourinary Urine Appearance: Present: Clear - Integumentary Present: no rash, no abnormal pigmentation - Musculoskeletal Present: normal posture - Psychiatric Present: oriented to time, oriented to person, oriented to place, speech is normal, memory intact - Labs 08/10/18 05:20 08/10/18 05:20 Diabetes panel 08/10/18 Range/Units 05:20 Sodium 136 (136-145) mEq/L Potassium 3.6 (3.5-5.1) mEq/L Chloride 108 H (98-107) mEq/L Carbon Dioxide 21 L (23-29) mEq/L BUN 4 L (6-20) mg/dL Creatinine 0.40 L (0.60-1.20) mg/dL Glucose 70 (70-105) mg/dL Calcium 7.6 L (8.6-10.3) mg/dL Calcium panel 08/10/18 Range/Units 05:20 Calcium 7.6 L (8.6-10.3) mg/dL Phosphorus 3.0 (2.7-4.5) mg/dL Pituitary panel 08/10/18 Range/Units 05:20 Sodium 136 (136-145) mEq/L Potassium 3.6 (3.5-5.1) mEq/L Chloride 108 H (98-107) mEq/L Carbon Dioxide 21 L (23-29) mEq/L BUN 4 L (6-20) mg/dL Creatinine 0.40 L (0.60-1.20) mg/dL Glucose 70 (70-105) mg/dL Calcium 7.6 L (8.6-10.3) mg/dL Adrenal panel 08/10/18 Range/Units 05:20 Sodium 136 (136-145) mEq/L Potassium 3.6 (3.5-5.1) mEq/L Chloride 108 H (98-107) mEq/L Carbon Dioxide 21 L (23-29) mEq/L BUN 4 L (6-20) mg/dL Creatinine 0.40 L (0.60-1.20) mg/dL Glucose 70 (70-105) mg/dL Calcium 7.6 L (8.6-10.3) mg/dL Consult Discharge Plan - Plan Referrals: Beverly White, JAIRO [Advanced Practice Nurse] -
[2018-08-10] MEDS: Pantoprazole 40 MG VIAL IVP SCH (10:05)
[2018-08-10] MEDS: Fluconazole 400 MG/200 ML 400 MG/200 ML BAG IVPB SCH (10:06)
[2018-08-10] MEDS: Nicotine 7 MG PATCH.TD24 TD SCH (10:07)
[2018-08-10 10:59] LABS: Fluid Source for Creatinine PERITONEAL
--- NOTE | 2018-08-10 11:14 | General Surgery Progress Note ---
<Rosey Zamorano - Last Filed: 08/10/18 11:13> Date of Encounter: 08/10/18 Time of Encounter: 10:35 - Assessment and Plan (1) Diverticulitis of large intestine with abscess Current Visit: Yes Status: Acute POD #3 Ex lap, rectosigmoid resection, takedown splenic flexure colon, colostomy, wound vac placement, incidental appendectomy with Dr. Leonardo on 08/07/18 Repair bladder laceration with Urology Bowel sounds absent. No flatus or bowel movement. Pathology pending NPO Continue NG tube to LIWS IV fluids Continue SPECIAL EDUCATION PRESCHOOL TEACHER for pain control Scheduled ofirmev IV antibiotics Zosyn and antifungal Diflucan IS every 1 hour while awake Wound vac therapy- next change 08/13/18 Continue pastrana catheter with NO manipulation- management per urology and surgery team ONLY Strict I&Os PPI therapy daily Wound care consult for ostomy teaching Repeat am labs- CBC, BMP Out of bed to chair, ambulate 08/09/18 Await return of bowel function Qualifiers: Diverticulitis bleeding: with bleeding Qualified Code(s): K57.21 - Diverticulitis of large intestine with perforation and abscess with bleeding (2) Laceration of bladder Current Visit: Yes Status: Acute Repaired per urology Continue pastrana catheter with NO manipulation. Management per urology and surgery team Strict I&Os Qualifiers: Encounter type: subsequent encounter Qualified Code(s): S37.23XD - Laceration of bladder, subsequent encounter Subjective Narrative: Patient seen and examined. No acute events overnight. Patient is resting comfortably in bed. Patient feels better. Reports lower abdominal pain, improved. Denies nausea/vomiting or fever. States she wants to eat. No flatus or bowel movement. Denies any other complaints. Objective Vital Signs - Last 8 Hours Temp Pulse Resp BP Pulse Ox 08/10/18 08:14 97 08/10/18 06:42 98.1 F 89 18 103/63 97 08/10/18 04:46 98.2 F 94 16 106/70 98 Intake and Output 08/09/18 08/10/18 08/10/18 23:59 07:59 15:59 Intake Total 1460 / 1460 300 / 300 Output Total 810 / 810 1375 / 1375 1215 / 1215 Balance 650 / 650 -1075 / -1075 -1215 / -1215 Intake: IV Fluids 1460 / 1460 300 / 300 0.9 % Sodium Chloride 1,000 ML 1000 / 1000 @ 110 mls/hr IVC .Q9H6M [facility] Rx# :[id number] Ofirmev 1,000 mg/100 ml 1,000 100 / 100 200 / 200 mg In 100 ml @ 400 mls/hr IVPB Q6HR [facility] Rx#:[id number] Zosyn 3.375 GM In 0.9 % Sodium 100 / 100 100 / 100 Chloride (Mini-Bag +) 100 ML @ 25 mls/hr IVPB Q8HR [facility] Rx#: [id number] Sodium Phosphate 30 MMOL In 0.9 260 / 260 % Sodium Chloride 250 ML @ 42 mls/hr IVPB ONCE ONE Rx#: [id number] Output: Urine 400 / 400 Gastric Tube Lavage Amount 150 / 150 100 / 100 150 / 150 Right Nare 150 / 150 100 / 100 150 / 150 Catheter 650 / 650 1275 / 1275 650 / 650 Urethral (Pastrana) 650 / 650 650 / 650 Wound Drainage Lower Abdomen 0 / 0 Midline 0 / 0 Right Lower Abdomen Other: Meal npo dinner NPO Blood Glucose* 57 98 - Additional Exam VITAL SIGNS: Reviewed. See [facility] GENERAL: In no acute distress. HEENT: Normocephalic, atraumatic, pupils are equal and reactive, pupils are equal and reactive, extraocular motions intact, oral mucosa pink and dry. NG tube in place draining light green fluid. CHEST/RESPIRATORY: The thorax is free from signs of trauma. Lung sounds: clear to auscultation, normal respiratory effort CARDIAC: Regular rate and rhythm. Normal S1 and S2, without murmurs, gallops, or rubs. VASCULAR: No Edema. ABDOMEN: Soft, obese, nondistended, expected postoperative tenderness, bowel sounds absent INCISION: Incision site is clean, dry and intact. There are no signs of cellulitis or infection noted. WOUNDS/DRAINS: RLQ KAROL drain site isWNL. No drainage is noted at this time. Lower midline wound vac in place. MUSCULOSKELETAL: Good range of motion of all major joints. Extremities without clubbing, cyanosis or edema. NEUROLOGIC EXAM: Alert and oriented x 3. Speech normal. Follows commands. PSYCHIATRIC: Mood normal. SKIN: No rash or lesions. - Labs 08/10/18 05:20 08/10/18 05:20 Diabetes panel 08/10/18 Range/Units 05:20 Sodium 136 (136-145) mEq/L Potassium 3.6 (3.5-5.1) mEq/L Chloride 108 H (98-107) mEq/L Carbon Dioxide 21 L (23-29) mEq/L BUN 4 L (6-20) mg/dL Creatinine 0.40 L (0.60-1.20) mg/dL Glucose 70 (70-105) mg/dL Calcium 7.6 L (8.6-10.3) mg/dL Calcium panel 08/10/18 Range/Units 05:20 Calcium 7.6 L (8.6-10.3) mg/dL Phosphorus 3.0 (2.7-4.5) mg/dL Pituitary panel 08/10/18 Range/Units 05:20 Sodium 136 (136-145) mEq/L Potassium 3.6 (3.5-5.1) mEq/L Chloride 108 H (98-107) mEq/L Carbon Dioxide 21 L (23-29) mEq/L BUN 4 L (6-20) mg/dL Creatinine 0.40 L (0.60-1.20) mg/dL Glucose 70 (70-105) mg/dL Calcium 7.6 L (8.6-10.3) mg/dL Adrenal panel 08/10/18 Range/Units 05:20 Sodium 136 (136-145) mEq/L Potassium 3.6 (3.5-5.1) mEq/L Chloride 108 H (98-107) mEq/L Carbon Dioxide 21 L (23-29) mEq/L BUN 4 L (6-20) mg/dL Creatinine 0.40 L (0.60-1.20) mg/dL Glucose 70 (70-105) mg/dL Calcium 7.6 L (8.6-10.3) mg/dL Consult Discharge Plan - Plan Referrals: Beverly White, CRIMINAL PROFILER [Advanced Practice Nurse] - <Everardo Najera - Last Filed: 08/13/18 08:32> Date of Encounter: 08/13/18 Objective Vital Signs - Last 8 Hours Temp Pulse Resp BP Pulse Ox 08/13/18 07:19 98.5 F 66 16 97/69 94 08/13/18 04:36 97.9 F 65 15 115/64 95 Intake and Output 08/12/18 08/13/18 08/13/18 23:59 07:59 15:59 Intake Total 1200 / 1200 1300 / 1300 Output Total 670 / 670 2049 Balance 530 / 530 -750 / -750 Intake: IV Fluids 1200 / 1200 1300 / 1300 D5% And 0.45% Nacl 1000 Ml Bag 1000 / 1000 1000 / 1000 1,000 ML @ 100 mls/hr IVC .Q10H [facility] Rx#:[id number] Ofirmev 1,000 mg/100 ml 1,000 100 / 100 200 / 200 mg In 100 ml @ 400 mls/hr IVPB Q6HR [facility] Rx#:[id number] Zosyn 3.375 GM In 0.9 % Sodium 100 / 100 100 / 100 Chloride (Mini-Bag +) 100 ML @ 25 mls/hr IVPB Q8HR [facility] Rx#: [id number] Oral 0 / 0 0 / 0 Output: Urine 0 / 0 Gastric Tube Lavage Amount 550 / 550 Right Nare 550 / 550 Catheter 650 / 650 1300 / 1300 Gastric Drainage 150 / 150 Wound Drainage 20 / 20 50 / 50 Lower Abdomen 50 / 50 Right Lower Abdomen 20 / 20 Other: Meal NPO DINNER Weight 81.3 kg Blood Glucose* 77 89 Patient Weight 08/13/18 23:59 Weight 81.3 kg - Labs 08/11/18 04:00 08/11/18 04:00 - Attending Attestation I have personally seen and examined the patient. I have reviewed pertinent labs, imaging, progress notes, including this one. I have discussed the plan in thorough detail with the resident and nurse practitioner. I agree with the above assessment and plan.
[2018-08-10] MEDS: *HR* HYDROmorphone 20 MG/20 ML PCA IVC PRN (21:34)
[2018-08-11] MEDS: *HR* Dextrose 50 % in Water (Syg) 50 ML SYRINGE IVP PRN (00:05)
[2018-08-11] MEDS: Acetaminophen IV 1,000 MG/100 ML INFUS..BTL IVPB SCH ×5 (00:05→23:55)
[2018-08-11] MEDS: Piperacillin/Tazobactam 3.375 GM in 0.9 % Sodium Chloride Mini Bag 100 ML IVPB SCH ×3 (00:05→16:37)
[2018-08-11] MEDS: D5% in 0.45% NACL 1,000 ML IVC SCH ×3 (01:17→21:37)
[2018-08-11 04:44] LABS: Basophils % 0.2 %; Eosinophils # 0.5 K/mcL (0.0-0.6); Eosinophils % 5.4 %; Hematocrit 30.1 % (35.3-44.9); Hemoglobin 9.9 g/dL (11.5-15.4); Immature Granulocytes % 0.7 % (0-4); Lymphocytes % 10.4 %; Mean Corpuscular HGB Conc 32.9 g/dL (31.6-35.5); Mean Corpuscular Hemoglobin 30.9 pg (28.0-33.3); Mean Corpuscular Volume 94.1 fL (83.0-100.0); Mean Platelet Volume 8.9 fL (9.4-12.4); Monocytes # 0.6 K/mcL (0.0-1.3); Monocytes % 6.1 %; Neutrophils # 7.1 K/mcL (1.6-8.9); Platelet Count 358 K/mcL (140-400); Red Cell Distribution Width 15.3 % (11.5-14.5); Segmented Neutrophils % 77.2 %
[2018-08-11 05:03] LABS: BUN/Creatinine Ratio 8 (6-26); Blood Urea Nitrogen 3 mg/dL (6-20); Calcium 7.7 mg/dL (8.6-10.3); Carbon Dioxide 24 mEq/L (23-29); Chloride 107 mEq/L (98-107); Glucose 91 mg/dL (70-105); Osmolality,Calculated 282 (280-300); Potassium 3.3 mEq/L (3.5-5.1); Sodium 138 mEq/L (136-145); eGFR For Non-African Americans > 60 (> 60)
[2018-08-11] MEDS: *HR* Heparin 5,000 UNIT/ML VIAL SQ SCH ×2 (05:54→17:59)
--- NOTE | 2018-08-11 08:32 | Urology Progress Note ---
Date of Encounter: 08/11/18 Time of Encounter: 08:30 - Assessment and Plan (1) Laceration of bladder Current Visit: Yes Status: Acute Assessment and plan: Postoperatively #4 status post repair of bladder laceration. Her urine has remained clear. KAROL has been scant. Primary team can remove KAROL drain when no longer needed. There is no evidence of bladder leak at this time. Continue Trivedi catheter for a total 2 weeks. We will obtain a cystogram prior to removal. Urology will follow along on a peripheral basis. Please contact us with any questions. Qualifiers: Encounter type: subsequent encounter Qualified Code(s): S37.23XD - Laceration of bladder, subsequent encounter Progress Note Narrative: Patient is doing well after repair of bladder laceration. No gas from ostomy. Trivedi catheter is draining clear. JVP is scant with serous fluid. Objective Initial Vital Signs Temp Pulse Resp BP Pulse Ox 97.8 F 135 16 118/86 97 08/05/18 08:44 08/05/18 08:44 08/05/18 08:44 08/05/18 08:44 08/05/18 08:44 - General physical appearance Present: well developed, well nourished, no distress - Respiratory Present: normal respiratory effort - Abdomen Present: tender (osctomy pink) - Genitourinary Urine Appearance: Present: Clear - Labs 08/11/18 04:00 08/11/18 04:00 Diabetes panel 08/11/18 Range/Units 04:00 Sodium 138 (136-145) mEq/L Potassium 3.3 L (3.5-5.1) mEq/L Chloride 107 (98-107) mEq/L Carbon Dioxide 24 (23-29) mEq/L BUN 3 L (6-20) mg/dL Creatinine 0.38 L (0.60-1.20) mg/dL Glucose 91 (70-105) mg/dL Calcium 7.7 L (8.6-10.3) mg/dL Calcium panel 08/11/18 Range/Units 04:00 Calcium 7.7 L (8.6-10.3) mg/dL Pituitary panel 08/11/18 Range/Units 04:00 Sodium 138 (136-145) mEq/L Potassium 3.3 L (3.5-5.1) mEq/L Chloride 107 (98-107) mEq/L Carbon Dioxide 24 (23-29) mEq/L BUN 3 L (6-20) mg/dL Creatinine 0.38 L (0.60-1.20) mg/dL Glucose 91 (70-105) mg/dL Calcium 7.7 L (8.6-10.3) mg/dL Adrenal panel 08/11/18 Range/Units 04:00 Sodium 138 (136-145) mEq/L Potassium 3.3 L (3.5-5.1) mEq/L Chloride 107 (98-107) mEq/L Carbon Dioxide 24 (23-29) mEq/L BUN 3 L (6-20) mg/dL Creatinine 0.38 L (0.60-1.20) mg/dL Glucose 91 (70-105) mg/dL Calcium 7.7 L (8.6-10.3) mg/dL Consult Discharge Plan - Plan Referrals: Beverly White, AUTOMOTIVE ENGINEERING TECHNICIAN [Advanced Practice Nurse] -
[2018-08-11] MEDS: Pantoprazole 40 MG VIAL IVP SCH (08:55)
[2018-08-11] MEDS: Nicotine 7 MG PATCH.TD24 TD SCH (08:57)
[2018-08-11] MEDS: Fluconazole 400 MG/200 ML 400 MG/200 ML BAG IVPB SCH (08:57)
--- NOTE | 2018-08-11 19:00 | General Surgery Progress Note ---
Date of Encounter: 08/11/18 Time of Encounter: 07:50 - Assessment and Plan (1) Diverticulitis of large intestine with abscess Current Visit: Yes Status: Acute POD #4 Ex lap, rectosigmoid resection, takedown splenic flexure colon, colostomy, wound vac placement, incidental appendectomy with Dr. Leonardo on 08/07/18 Repair bladder laceration with Urology Qualifiers: Diverticulitis bleeding: with bleeding Qualified Code(s): K57.21 - Diverticulitis of large intestine with perforation and abscess with bleeding (2) Laceration of bladder Current Visit: Yes Status: Acute Qualifiers: Encounter type: subsequent encounter Qualified Code(s): S37.23XD - Laceration of bladder, subsequent encounter (3) Status post Eugenia procedure Current Visit: Yes Status: Acute Pt doing well post-op. Awaiting bowel function. Increase activity. Maintain pastrana and wound vac. Continue IV abx. Subjective Patient reports: no new complaints, feels better (No stool or gas per colostomy. NGT/NPO) Objective Vital Signs - Last 8 Hours Temp Pulse Resp Pulse Ox 08/11/18 15:00 97.3 F L 78 16 96 Intake and Output 08/11/18 08/11/18 08/11/18 07:59 15:59 23:59 Intake Total 585 / 585 1400 / 1400 Output Total 1150 / 1150 1750 / 1750 Balance -565 / -565 -350 / -350 Intake: IV Fluids 525 / 525 1400 / 1400 0.9 % Sodium Chloride 1,000 ML 225 / 225 @ 110 mls/hr IVC .Q9H6M [facility] Rx# :[id number] D5% And 0.45% Nacl 1000 Ml Bag 1000 / 1000 1,000 ML @ 100 mls/hr IVC .Q10H [facility] Rx#:[id number] Ofirmev 1,000 mg/100 ml 1,000 200 / 200 100 / 100 mg In 100 ml @ 400 mls/hr IVPB Q6HR [facility] Rx#:[id number] Diflucan Premix 400 MG/200 ML 200 / 200 400 mg In 200 ml @ 200 mls/hr IVPB DAILY [facility] Rx#:[id number] Zosyn 3.375 GM In 0.9 % Sodium 100 / 100 100 / 100 Chloride (Mini-Bag +) 100 ML @ 25 mls/hr IVPB Q8HR [facility] Rx#: [id number] Oral 60 / 60 Output: Catheter 650 / 650 1750 / 1750 Gastric Drainage 500 / 500 Other: Meal NPO BREAKFAST Weight 81.5 kg Blood Glucose* 86 89 91 Patient Weight 08/11/18 23:59 Weight 81.5 kg - General physical appearance no distress, no pain - ENT normal mucosa - Respiratory clear to auscultation - Cardiovascular Cardiovascular exam: Present: RRR - Abdomen Abdomen: Present: soft (BS quiet. Incision partially intact with wound vac to most minimal aspect. Colostomy plump and pink.). Absent: bowel sounds present - Incision Incision: Present: clean and dry. Absent: draining, erythema - Genitourinary other (Pastrana in place with clear urine) - Psychiatric oriented to time, oriented to person, oriented to place - Labs 08/11/18 04:00 08/11/18 04:00 Diabetes panel 08/11/18 Range/Units 04:00 Sodium 138 (136-145) mEq/L Potassium 3.3 L (3.5-5.1) mEq/L Chloride 107 (98-107) mEq/L Carbon Dioxide 24 (23-29) mEq/L BUN 3 L (6-20) mg/dL Creatinine 0.38 L (0.60-1.20) mg/dL Glucose 91 (70-105) mg/dL Calcium 7.7 L (8.6-10.3) mg/dL Calcium panel 08/11/18 Range/Units 04:00 Calcium 7.7 L (8.6-10.3) mg/dL Pituitary panel 08/11/18 Range/Units 04:00 Sodium 138 (136-145) mEq/L Potassium 3.3 L (3.5-5.1) mEq/L Chloride 107 (98-107) mEq/L Carbon Dioxide 24 (23-29) mEq/L BUN 3 L (6-20) mg/dL Creatinine 0.38 L (0.60-1.20) mg/dL Glucose 91 (70-105) mg/dL Calcium 7.7 L (8.6-10.3) mg/dL Adrenal panel 08/11/18 Range/Units 04:00 Sodium 138 (136-145) mEq/L Potassium 3.3 L (3.5-5.1) mEq/L Chloride 107 (98-107) mEq/L Carbon Dioxide 24 (23-29) mEq/L BUN 3 L (6-20) mg/dL Creatinine 0.38 L (0.60-1.20) mg/dL Glucose 91 (70-105) mg/dL Calcium 7.7 L (8.6-10.3) mg/dL - Imaging Chest x-ray: image reviewed Consult Discharge Plan - Plan Referrals: Beverly White, ASSISTANT PROFESSOR OF CHEMISTRY [Advanced Practice Nurse] -
[2018-08-12] MEDS: Piperacillin/Tazobactam 3.375 GM in 0.9 % Sodium Chloride Mini Bag 100 ML IVPB SCH ×3 (00:17→16:15)
[2018-08-12] MEDS: *HR* HYDROmorphone 20 MG/20 ML PCA IVC PRN (03:48)
[2018-08-12] MEDS: *HR* Heparin 5,000 UNIT/ML VIAL SQ SCH ×2 (05:34→17:21)
[2018-08-12] MEDS: Acetaminophen IV 1,000 MG/100 ML INFUS..BTL IVPB SCH ×3 (05:35→17:20)
[2018-08-12] MEDS: Fluconazole 400 MG/200 ML 400 MG/200 ML BAG IVPB SCH (07:54)
[2018-08-12] MEDS: D5% in 0.45% NACL 1,000 ML IVC SCH ×2 (07:54→17:54)
[2018-08-12] MEDS: Pantoprazole 40 MG VIAL IVP SCH (07:55)
[2018-08-12] MEDS: Nicotine 7 MG PATCH.TD24 TD SCH (07:56)
--- NOTE | 2018-08-12 15:36 | General Surgery Progress Note ---
Date of Encounter: 08/12/18 Time of Encounter: 06:30 - Assessment and Plan (1) Diverticulitis of large intestine with abscess Current Visit: Yes Status: Acute POD #5 Ex lap, rectosigmoid resection, takedown splenic flexure colon, colostomy, wound vac placement, incidental appendectomy with Dr. Leonardo on 08/07/18 Repair bladder laceration with Urology (2) Laceration of bladder Current Visit: Yes Status: Acute Qualifiers: Encounter type: subsequent encounter Qualified Code(s): S37.23XD - Laceration of bladder, subsequent encounter (3) Status post Eugenia procedure Current Visit: Yes Status: Acute Pt doing well post-op. Awaiting bowel function. Increase activity. Maintain pastrana and wound vac. Continue IV abx. Subjective Patient reports: no new complaints (Still no stool or gas in colostomy bag), feels better, no flatus, no bowel movement Objective Vital Signs - Last 8 Hours Temp Pulse Resp BP Pulse Ox 08/12/18 14:33 98.2 F 69 19 110/68 95 08/12/18 10:28 97.5 F L 64 15 133/81 95 Intake and Output 08/11/18 08/12/18 08/12/18 23:59 07:59 15:59 Intake Total 1200 / 1200 1360 / 1360 100 / 100 Output Total 325 / 325 2150 / 2150 1150 / 1150 Balance 875 / 875 -790 / -790 -1050 / -1050 Intake: IV Fluids 1200 / 1200 1300 / 1300 100 / 100 D5% And 0.45% Nacl 1000 Ml Bag 1000 / 1000 1000 / 1000 1,000 ML @ 100 mls/hr IVC .Q10H [facility] Rx#:[id number] Ofirmev 1,000 mg/100 ml 1,000 100 / 100 200 / 200 mg In 100 ml @ 400 mls/hr IVPB Q6HR [facility] Rx#:[id number] Zosyn 3.375 GM In 0.9 % Sodium 100 / 100 100 / 100 100 / 100 Chloride (Mini-Bag +) 100 ML @ 25 mls/hr IVPB Q8HR [facility] Rx#: [id number] Oral 0 / 0 60 / 60 0 / 0 Output: Urine 0 / 0 Stool 0 / 0 Catheter 325 / 325 1800 / 1800 1000 / 1000 Gastric Drainage 350 / 350 150 / 150 Wound Drainage 0 / 0 Lower Abdomen 0 / 0 Right Lower Abdomen 0 / 0 Other: Meal npo Percent of Meal Consumed 0% Weight 81.4 kg Blood Glucose* 91 87 86 Patient Weight 08/12/18 23:59 Weight 81.4 kg - General physical appearance no distress - ENT normal mucosa - Respiratory clear to auscultation - Cardiovascular Cardiovascular exam: Present: RRR - Abdomen Abdomen: Present: bowel sounds present (hypoactive) - Incision Incision: Absent: draining, erythema - Genitourinary other (pastrana in place with clear urin) - Psychiatric oriented to time, oriented to person, oriented to place - Labs 08/11/18 04:00 08/11/18 04:00 Consult Discharge Plan - Plan Referrals: Beverly White SCRIPT READER [Advanced Practice Nurse] -
[2018-08-13] MEDS: Acetaminophen IV 1,000 MG/100 ML INFUS..BTL IVPB SCH ×4 (00:44→17:14)
[2018-08-13] MEDS: Piperacillin/Tazobactam 3.375 GM in 0.9 % Sodium Chloride Mini Bag 100 ML IVPB SCH ×3 (00:44→15:44)
[2018-08-13] MEDS: D5% in 0.45% NACL 1,000 ML IVC SCH ×2 (04:41→15:43)
[2018-08-13] MEDS: *HR* HYDROmorphone 20 MG/20 ML PCA IVC PRN (05:46)
[2018-08-13] MEDS: *HR* Heparin 5,000 UNIT/ML VIAL SQ SCH ×2 (06:48→17:13)
[2018-08-13] MEDS ORDERED: Methylnaltrexone 12 MG/0.6 ML SYRINGE SQ ONE (07:51)
[2018-08-13] MEDS: Nicotine 7 MG PATCH.TD24 TD SCH (08:26)
[2018-08-13] MEDS: Fluconazole 400 MG/200 ML 400 MG/200 ML BAG IVPB SCH (08:34)
[2018-08-13] MEDS: Pantoprazole 40 MG VIAL IVP SCH (08:35)
[2018-08-13 08:53] LABS: Basophils % 0.2 %; Eosinophils # 0.6 K/mcL (0.0-0.6); Hematocrit 31.1 % (35.3-44.9); Hemoglobin 10.3 g/dL (11.5-15.4); Immature Granulocytes % 0.7 % (0-4); Lymphocytes # 1.1 K/mcL (0.6-4.6); Mean Corpuscular HGB Conc 33.1 g/dL (31.6-35.5); Mean Corpuscular Hemoglobin 30.7 pg (28.0-33.3); Mean Corpuscular Volume 92.6 fL (83.0-100.0); Mean Platelet Volume 9.2 fL (9.4-12.4); Monocytes # 0.7 K/mcL (0.0-1.3); Monocytes % 7.4 %; Neutrophils # 6.4 K/mcL (1.6-8.9); Platelet Count 387 K/mcL (140-400); Red Blood Count 3.36 M/mcL (3.82-4.97); Red Cell Distribution Width 14.7 % (11.5-14.5); Segmented Neutrophils % 72.7 %
[2018-08-13 09:13] LABS: BUN/Creatinine Ratio 7 (6-26); Blood Urea Nitrogen 3 mg/dL (6-20); Calcium 8.2 mg/dL (8.6-10.3); Carbon Dioxide 29 mEq/L (23-29); Chloride 107 mEq/L (98-107); Glucose 108 mg/dL (70-105); Osmolality,Calculated 281 (280-300); Phosphorous 4.2 mg/dL (2.7-4.5); Potassium 2.9 mEq/L (3.5-5.1); Sodium 137 mEq/L (136-145); eGFR For Non-African Americans > 60 (> 60)
[2018-08-13] MEDS ORDERED: Potassium Chloride 40 MEQ, Lidocaine 1% 2 ML in D5% in Water 500 ML IVPB ONE (09:14)
[2018-08-13] MEDS ORDERED: D10% in Water 500 ML IVC PRN (09:50)
--- NOTE | 2018-08-13 09:56 | General Surgery Progress Note ---
<Kaci Marks - Last Filed: 08/13/18 09:56> Date of Encounter: 08/13/18 Time of Encounter: 09:45 - Assessment and Plan (1) Diverticulitis of large intestine with abscess Current Visit: Yes Status: Acute POD #6 Ex lap, rectosigmoid resection, takedown splenic flexure colon, colostomy, wound vac placement, incidental appendectomy with Dr. Leonardo Repair bladder laceration with Urology Pathology- Rectum, sigmoid and appendix resection: Colonic mucosa with diverticulosis , focal acute and chronic inflammation and features consistent with perforated diverticulitis. Appendix with prominent lymphoid follicles and serositis. NPO NG tube to LIWS IV fluids- decrease with start of TPN for total fluid rate of 100ml/hour Start TPN today Vegetable Harvest Worker consult Discontinue GALLEY COOK- transition to SL oxycodone Scheduled ofirmev IV antibiotics- Zosyn, added antifungal Diflucan 08/09/18 (load with 800mg and then 400mg daily) IS every 1 hour while awake Wound vac therapy- change per surgery team today and then next change 08/13/18 Continue pastrana catheter with NO manipulation- management per urology and surgery team ONLY Strict I&Os PPI therapy daily Wound care consult for ostomy teaching Repeat am labs- CBC, BMP Out of bed to chair, ambulate hallways TID with assistance Qualifiers: Diverticulitis bleeding: with bleeding Qualified Code(s): K57.21 - Diverticulitis of large intestine with perforation and abscess with bleeding (2) Laceration of bladder Current Visit: Yes Status: Acute Repaired per urology Continue pastrana catheter with NO manipulation. Management per urology and surgery team Strict I&Os Qualifiers: Encounter type: subsequent encounter Qualified Code(s): S37.23XD - Lac eration of bladder, subsequent encounter (3) Hypokalemia Current Visit: Yes Status: Acute Potassium- 2.9 Replace and repeat am Labs (4) Moderate protein malnutrition Current Visit: Yes Status: Acute Start TPN today Total fluid rate 100ml/hour (TPN + MIV) (5) DVT prophylaxis Current Visit: Yes Status: Acute Heparin 5,000 units SQ twice daily for DVT prophylaxis Ambulate hallways TID with assistance Subjective Patient reports: no new complaints, feels better, still having pain, pain is less, no flatus, no bowel movement, afebrile Objective Vital Signs - Last 8 Hours Temp Pulse Resp BP Pulse Ox 08/13/18 07:19 98.5 F 66 16 97/69 94 08/13/18 04:36 97.9 F 65 15 115/64 95 Intake and Output 08/12/18 08/13/18 08/13/18 23:59 07:59 15:59 Intake Total 1200 / 1200 1300 / 1300 0 / 0 Output Total 670 / 670 2049 Balance 530 / 530 -750 / -750 0 / 0 Intake: IV Fluids 1200 / 1200 1300 / 1300 D5% And 0.45% Nacl 1000 Ml Bag 1000 / 1000 1000 / 1000 1,000 ML @ 100 mls/hr IVC .Q10H [facility] Rx#:[id number] Ofirmev 1,000 mg/100 ml 1,000 100 / 100 200 / 200 mg In 100 ml @ 400 mls/hr IVPB Q6HR [facility] Rx#:[id number] Zosyn 3.375 GM In 0.9 % Sodium 100 / 100 100 / 100 Chloride (Mini-Bag +) 100 ML @ 25 mls/hr IVPB Q8HR [facility] Rx#: [id number] Oral 0 / 0 0 / 0 0 / 0 Output: Urine 0 / 0 Gastric Tube Lavage Amount 550 / 550 Right Nare 550 / 550 Catheter 650 / 650 1300 / 1300 Gastric Drainage 150 / 150 Wound Drainage 20 / 20 50 / 50 Lower Abdomen 50 / 50 Right Lower Abdomen 20 / 20 Other: Meal NPO DINNER NPO Weight 81.3 kg Blood Glucose* 77 89 Patient Weight 08/13/18 23:59 Weight 81.3 kg - General physical appearance well developed, no distress - Eyes normal ocular movement - ENT dry mucosa, atraumatic, normocephalic - Neck Neck exam: trachea midline - Respiratory normal respiratory effort, clear to auscultation - Abdomen Abdomen: Present: bowel sounds present (hypoactive), soft, tender (expected post-operative tenderness), wound (KAROL drain to bulb suction with serous drainage noted (10ml since midnight); Wound vac to midline intact with serous drainage noted; NG to LIWS with minimal drainage noted ) - Incision Incision: Present: serous (Midline with wound vac intact) - Neurologic CN 2-12 grossly intact - Psychiatric oriented to time, oriented to person, oriented to place, speech is normal, memory intact - Labs 08/13/18 08:27 08/13/18 08:27 Diabetes panel 08/13/18 Range/Units 08:27 Sodium 137 (136-145) mEq/L Potassium 2.9 L (3.5-5.1) mEq/L Chloride 107 (98-107) mEq/L Carbon Dioxide 29 (23-29) mEq/L BUN 3 L (6-20) mg/dL Creatinine 0.46 L (0.60-1.20) mg/dL Glucose 108 H (70-105) mg/dL Calcium 8.2 L (8.6-10.3) mg/dL Calcium panel 08/13/18 Range/Units 08:27 Calcium 8.2 L (8.6-10.3) mg/dL Phosphorus 4.2 (2.7-4.5) mg/dL Pituitary panel 08/13/18 Range/Units 08:27 Sodium 137 (136-145) mEq/L Potassium 2.9 L (3.5-5.1) mEq/L Chloride 107 (98-107) mEq/L Carbon Dioxide 29 (23-29) mEq/L BUN 3 L (6-20) mg/dL Creatinine 0.46 L (0.60-1.20) mg/dL Glucose 108 H (70-105) mg/dL Calcium 8.2 L (8.6-10.3) mg/dL Adrenal panel 08/13/18 Range/Units 08:27 Sodium 137 (136-145) mEq/L Potassium 2.9 L (3.5-5.1) mEq/L Chloride 107 (98-107) mEq/L Carbon Dioxide 29 (23-29) mEq/L BUN 3 L (6-20) mg/dL Creatinine 0.46 L (0.60-1.20) mg/dL Glucose 108 H (70-105) mg/dL Calcium 8.2 L (8.6-10.3) mg/dL Consult Discharge Plan - Plan Referrals: Beverly White, JEWELRY DRILL OPERATOR [Advanced Practice Nurse] - - Attending Attestation For this encounter, I have reviewed the PATROL INSPECTOR or PA documentation, treatment plan, and medical decision making; and I have had face to face time with this patient. <Yanci Leonardo - Last Filed: 08/14/18 13:40> Date of Encounter: 08/13/18 - Assessment and Plan (1) Tobacco abuse Current Visit: Yes Status: Chronic nicotine patch prn (2) Diverticulitis of large intestine with abscess Current Visit: Yes Status: Acute patient filled colostomy twice and emptied, ok start limited clears TPN today GALLEY COOK stopped and start po oxycodone SL continue iv abx, zosyn and diflucan wound vac - change M, W, F ostomy teaching low K - replaced gi/dvt prophylaxis ambulate Qualifiers: Qualified Code(s): K57.21 - Diverticulitis of large intestine with perforation and abscess with bleeding Subjective Patient reports: feels better, still having pain, pain is less, tolerating liquids well, flatus, bowel movement, afebrile Objective Vital Signs - Last 8 Hours Temp Pulse Resp BP Pulse Ox 08/14/18 11:09 98.2 F 75 16 135/86 97 Intake and Output 08/13/18 08/14/18 08/14/18 23:59 07:59 15:59 Intake Total 321 / 321 450 / 450 200 / 200 Output Total 2725 / 2725 0 / 0 1400 / 1400 Balance -2404 / -2404 450 / 450 -1200 / -1200 Intake: IV Fluids 321 / 321 450 / 450 200 / 200 D5% And 0.45% Nacl 1000 Ml Bag 121 / 121 1,000 ML @ 100 mls/hr IVC .Q10H [facility] Rx#:[id number] Ofirmev 1,000 mg/100 ml 1,000 100 / 100 100 / 100 200 / 200 mg In 100 ml @ 400 mls/hr IVPB Q6HR [facility] Rx#:[id number] Intralipid 20% 250 ML @ 21 mls/ 250 / 250 hr IVPB DAILY@1700 [facility] Rx#: [id number] Zosyn 3.375 GM In 0.9 % Sodium 100 / 100 100 / 100 Chloride (Mini-Bag +) 100 ML @ 25 mls/hr IVPB Q8HR [facility] Rx#: [id number] Oral 0 / 0 0 / 0 Output: Urine 0 / 0 Stool 75 / 75 100 / 100 Gastric Tube Lavage Amount 400 / 400 Right Nare 400 / 400 Catheter 2200 / 2200 1300 / 1300 Urethral (Pastrana) 2200 / 2200 Wound Drainage 50 / 50 0 / 0 0 / 0 Lower Abdomen 0 / 0 0 / 0 0 / 0 Midline 0 / 0 Right Lower Abdomen 50 / 50 0 / 0 0 / 0 Other: Stool Consistency liquid Stool Color Brown Brown Yellow Weight 81.3 kg Blood Glucose* 107 115 100 Patient Weight 08/14/18 23:59 Weight 81.3 kg - General physical appearance well developed, well nourished, no distress - Eyes PERRL, normal ocular movement - ENT normal mucosa, normocephalic - Neck Neck exam: trachea midline - Respiratory normal expansion, clear to auscultation - Cardiovascular Cardiovascular exam: Present: RRR - Abdomen Abdomen: Present: bowel sounds present, soft, tender - Incision Incision: Present: clean and dry, open (wound vac in place) - Integumentary no rash, no growths - Neurologic CN 2-12 grossly intact - Musculoskeletal normal posture - Psychiatric oriented to time, oriented to person, oriented to place, speech is normal, memory intact - Labs 08/13/18 08:27 08/14/18 05:40 Diabetes panel 08/14/18 Range/Units 05:40 Sodium 142 (136-145) mEq/L Potassium 3.2 L (3.5-5.1) mEq/L Chloride 108 H (98-107) mEq/L Carbon Dioxide 27 (23-29) mEq/L BUN 4 L (6-20) mg/dL Creatinine 0.46 L (0.60-1.20) mg/dL Glucose 103 (70-105) mg/dL Calcium 8.0 L (8.6-10.3) mg/dL Triglycerides 200 H (< 150) mg/dL Calcium panel 08/14/18 Range/Units 05:40 Calcium 8.0 L (8.6-10.3) mg/dL Phosphorus 3.3 (2.7-4.5) mg/dL Pituitary panel 08/14/18 Range/Units 05:40 Sodium 142 (136-145) mEq/L Potassium 3.2 L (3.5-5.1) mEq/L Chloride 108 H (98-107) mEq/L Carbon Dioxide 27 (23-29) mEq/L BUN 4 L (6-20) mg/dL Creatinine 0.46 L (0.60-1.20) mg/dL Glucose 103 (70-105) mg/dL Calcium 8.0 L (8.6-10.3) mg/dL Adrenal panel 08/14/18 Range/Units 05:40 Sodium 142 (136-145) mEq/L Potassium 3.2 L (3.5-5.1) mEq/L Chloride 108 H (98-107) mEq/L Carbon Dioxide 27 (23-29) mEq/L BUN 4 L (6-20) mg/dL Creatinine 0.46 L (0.60-1.20) mg/dL Glucose 103 (70-105) mg/dL Calcium 8.0 L (8.6-10.3) mg/dL - Attending Attestation I have personally performed a face to face evaluation on this patient. I have reviewed and agree with the care plan. History and Exam by me shows:
[2018-08-13] MEDS: Metoclopramide 10 MG/2 ML VIAL IVP SCH ×2 (12:31→17:13)
[2018-08-13] MEDS: OXYCODONE Oral CONC 10 MG/0.5 ML ORAL.SYG SL PRN ×2 (12:46→22:01)
[2018-08-13] MEDS: *HR* LORazepam 2 MG/ML VIAL IVP PRN (16:34)
[2018-08-13] MEDS: 0.9 % Sodium Chloride 1,000 ML IVC SCH (16:47)
[2018-08-13] MEDS: Insulin LISPRO 300 UNITS/3 ML VIAL SQ SCH ×2 (16:51→21:56)
[2018-08-13] MEDS ORDERED: Clinimix E 5%-15% SOLUTION 2,000 ML with MVI, adult with vitamin K 10 ML IVC SCH (17:00)
[2018-08-14] MEDS: Insulin LISPRO 300 UNITS/3 ML VIAL SQ SCH ×6 (00:37→20:37)
[2018-08-14] MEDS: Piperacillin/Tazobactam 3.375 GM in 0.9 % Sodium Chloride Mini Bag 100 ML IVPB SCH ×3 (00:42→16:30)
[2018-08-14] MEDS: Acetaminophen IV 1,000 MG/100 ML INFUS..BTL IVPB SCH ×3 (00:44→12:49)
[2018-08-14] MEDS: Metoclopramide 10 MG/2 ML VIAL IVP SCH ×2 (00:45→06:40)
[2018-08-14 06:25] LABS: BUN/Creatinine Ratio 9 (6-26); Blood Urea Nitrogen 4 mg/dL (6-20); Carbon Dioxide 27 mEq/L (23-29); Chloride 108 mEq/L (98-107); Glucose 103 mg/dL (70-105); Magnesium 2.2 mg/dL (1.6-2.6); Osmolality,Calculated 291 (280-300); Phosphorous 3.3 mg/dL (2.7-4.5); Potassium 3.2 mEq/L (3.5-5.1); Sodium 142 mEq/L (136-145); Triglycerides 200 mg/dL (< 150); eGFR For Non-African Americans > 60 (> 60)
[2018-08-14] MEDS: *HR* Heparin 5,000 UNIT/ML VIAL SQ SCH ×2 (06:40→17:28)
[2018-08-14] MEDS: *HR* LORazepam 2 MG/ML VIAL IVP PRN ×2 (07:48→21:16)
[2018-08-14] MEDS: Pantoprazole 40 MG VIAL IVP SCH (09:02)
[2018-08-14] MEDS: Nicotine 7 MG PATCH.TD24 TD SCH (09:03)
[2018-08-14] MEDS: Fluconazole 400 MG/200 ML 400 MG/200 ML BAG IVPB SCH (09:12)
[2018-08-14] MEDS ORDERED: Potassium Chloride 40 MEQ, Lidocaine 1% 2 ML in D5% in Water 500 ML IVPB ONE ×2 (10:01→15:00)
--- NOTE | 2018-08-14 10:17 | General Surgery Progress Note ---
<RodrigoBecky Bergman - Last Filed: 08/14/18 13:32> Date of Encounter: 08/14/18 Time of Encounter: 10:15 - Assessment and Plan (1) Diverticulitis of large intestine with abscess Current Visit: Yes Status: Acute Date of procedure: 08/07/18 Pre-op diagnosis: Perforated rectosigmoid diverticulitis, free air Post-op diagnosis: same (and intra-abdominal adhesions, bladder laceration) Procedure: Ex lap, rectosigmoid resection, takedown splenic flexure colon, colostomy wound vac placement incidental appendectomy repair bladder laceration Complications: bladder laceration Anesthesia: GETA Surgeon: Yanci Leonardo POD #7 as above. Noted plans for conitnued pastrana for aprox 2 weeks after surgery with plans for cystogram per urology prior o removal. Pt is tearful regarding current clinical course. She is situationaly depressed and would benefit from some antidepressant (see below). Plan: continue supportive care and discomfort management continue G.I. and DVT prophylaxis continue TPN stop IV fluids continue Pastrana catheter serial abdominal exams new ostomy teaching consult PT/OT/SW for home health care versus placement per DC planning continue IV antibiotics Qualifiers: Diverticulitis bleeding: with bleeding Qualified Code(s): K57.21 - Diverticulitis of large intestine with perforation and abscess with bleeding (2) Leukocytosis Current Visit: Yes Status: Resolved Continue IV antibiotics Qualifiers: Leukocytosis type: unspecified Qualified Code(s): D72.829 - Elevated white blood cell count, unspecified (3) Status post Eugenia procedure Current Visit: Yes Status: Acute consult sw for HHC vs rehab pending pt/ot reccs and patient's participation/comfort level with activity (4) Hypokalemia Current Visit: Yes Status: Acute replace as indicated (5) Tobacco abuse Current Visit: Yes Status: Chronic (6) Moderate protein malnutrition Current Visit: Yes Status: Acute continue tpn (7) Nausea Current Visit: Yes Status: Acute add scheduled zofran reports nausea with pain meds no vomiting (8) Situational depression Current Visit: Yes Status: Acute start lexapro 10 mg daily Stop reglan given that she is having BS and output to reduce the risk of prolo nged QTc interval. follow-up with [facility] Gardner 2 weeks after d/c for further management Subjective Patient reports: no new complaints, still having pain, pain is less, voiding w/o difficulty (per pastrana), flatus, bowel movement (per ostomy), nausea (with pain meds), afebrile Objective Vital Signs - Last 8 Hours Temp Pulse Resp BP Pulse Ox 08/14/18 04:09 98.2 F 81 15 127/80 100 Intake and Output 08/13/18 08/14/18 08/14/18 23:59 07:59 15:59 Intake Total 321 / 321 450 / 450 100 / 100 Output Total 2725 / 2725 0 / 0 Balance -2404 / -2404 450 / 450 100 / 100 Intake: IV Fluids 321 / 321 450 / 450 100 / 100 D5% And 0.45% Nacl 1000 Ml Bag 121 / 121 1,000 ML @ 100 mls/hr IVC .Q10H [facility] Rx#:[id number] Ofirmev 1,000 mg/100 ml 1,000 100 / 100 100 / 100 100 / 100 mg In 100 ml @ 400 mls/hr IVPB Q6HR [facility] Rx#:[id number] Intralipid 20% 250 ML @ 21 mls/ 250 / 250 hr IVPB DAILY@1700 [facility] Rx#: [id number] Zosyn 3.375 GM In 0.9 % Sodium 100 / 100 100 / 100 Chloride (Mini-Bag +) 100 ML @ 25 mls/hr IVPB Q8HR [facility] Rx#: [id number] Oral 0 / 0 0 / 0 Output: Urine 0 / 0 Stool 75 / 75 Gastric Tube Lavage Amount 400 / 400 Right Nare 400 / 400 Catheter 2199 / 0 Urethral (Pastrana) 2199 / 2200 Wound Drainage 50 / 50 0 / 0 Lower Abdomen 0 / 0 0 / 0 Midline 0 / 0 Right Lower Abdomen 50 / 50 0 / 0 Other: Stool Color Brown Yellow Weight 81.3 kg Blood Glucose* 107 115 Patient Weight 08/14/18 23:59 Weight 81.3 kg - General physical appearance no distress (sleeping uponmy entry to room), no pain - Eyes normal ocular movement - ENT normal nares, atraumatic, normocephalic - Neck Neck exam: trachea midline - Respiratory normal expansion, clear to auscultation - Cardiovascular Cardiovascular exam: Present: RRR - Abdomen Abdomen: Present: bowel sounds present, soft, tender (expected postoperative), wound (stoma is pink an dmoist) Hernia: none - Integumentary no rash - Neurologic normal sensation - Musculoskeletal normal posture - Psychiatric oriented to time, oriented to person, oriented to place, memory intact - Labs 08/13/18 08:27 08/14/18 05:40 Diabetes panel 08/14/18 Range/Units 05:40 Sodium 142 (136-145) mEq/L Potassium 3.2 L (3.5-5.1) mEq/L Chloride 108 H (98-107) mEq/L Carbon Dioxide 27 (23-29) mEq/L BUN 4 L (6-20) mg/dL Creatinine 0.46 L (0.60-1.20) mg/dL Glucose 103 (70-105) mg/dL Calcium 8.0 L (8.6-10.3) mg/dL Triglycerides 200 H (< 150) mg/dL Calcium panel 08/14/18 Range/Units 05:40 Calcium 8.0 L (8.6-10.3) mg/dL Phosphorus 3.3 (2.7-4.5) mg/dL Pituitary panel 08/14/18 Range/Units 05:40 Sodium 142 (136-145) mEq/L Potassium 3.2 L (3.5-5.1) mEq/L Chloride 108 H (98-107) mEq/L Carbon Dioxide 27 (23-29) mEq/L BUN 4 L (6-20) mg/dL Creatinine 0.46 L (0.60-1.20) mg/dL Glucose 103 (70-105) mg/dL Calcium 8.0 L (8.6-10.3) mg/dL Adrenal panel 08/14/18 Range/Units 05:40 Sodium 142 (136-145) mEq/L Potassium 3.2 L (3.5-5.1) mEq/L Chloride 108 H (98-107) mEq/L Carbon Dioxide 27 (23-29) mEq/L BUN 4 L (6-20) mg/dL Creatinine 0.46 L (0.60-1.20) mg/dL Glucose 103 (70-105) mg/dL Calcium 8.0 L (8.6-10.3) mg/dL Consult Discharge Plan - Plan Referrals: Beverly White, HUNTING GUIDE [Advanced Practice Nurse] - <Yanci Leonardo - Last Filed: 08/14/18 14:12> Date of Encounter: 08/14/18 - Assessment and Plan (1) Tobacco abuse Current Visit: Yes Status: Chronic nicotine patch (2) Diverticulitis of large intestine with abscess Current Visit: Yes Status: Acute continue antibiotics, will transition to po upon discharge adv diet to fulls continue pastrana - will f/u with urology as outpatient stop TPN after bag runs out today ok to DC central line after TPN stopped colostomy teaching, pastrana teaching DC planning - home care is patient preference OOB to shower (lower half of body) ambulate pulmonary toilet Qualifiers: Diverticulitis bleeding: with bleeding Qualified Code(s): K57.21 - Diverticulitis of large intestine with perforation and abscess with bleeding (3) Anxiety Current Visit: Yes Status: Acute will start lexapro (4) Laceration of bladder Current Visit: Yes Status: Resolved pastrana to stay will followup with urology as outpatient pastrana teaching, will give patient leg bag Qualifiers: Encounter type: subsequent encounter Qualified Code(s): S37.23XD - Lace ration of bladder, subsequent encounter Subjective Patient reports: feels better, still having pain, pain is less, tolerating liquids well, flatus, bowel movement, afebrile Objective Vital Signs - Last 8 Hours Temp Pulse Resp BP Pulse Ox 08/14/18 11:09 98.2 F 75 16 135/86 97 Intake and Output 08/13/18 08/14/18 08/14/18 23:59 07:59 15:59 Intake Total 321 / 321 450 / 450 200 / 200 Output Total 2725 / 2725 0 / 0 1400 / 1400 Balance -2404 / -2404 450 / 450 -1200 / -1200 Intake: IV Fluids 321 / 321 450 / 450 200 / 200 D5% And 0.45% Nacl 1000 Ml Bag 121 / 121 1,000 ML @ 100 mls/hr IVC .Q10H [facility] Rx#:[id number] Ofirmev 1,000 mg/100 ml 1,000 100 / 100 100 / 100 200 / 200 mg In 100 ml @ 400 mls/hr IVPB Q6HR [facility] Rx#:[id number] Intralipid 20% 250 ML @ 21 mls/ 250 / 250 hr IVPB DAILY@1700 [facility] Rx#: [id number] Zosyn 3.375 GM In 0.9 % Sodium 100 / 100 100 / 100 Chloride (Mini-Bag +) 100 ML @ 25 mls/hr IVPB Q8HR COUNT INCLUDES [facility] Rx#: [id number] Oral 0 / 0 0 / 0 Output: Urine 0 / 0 Stool 75 / 75 100 / 100 Gastric Tube Lavage Amount 400 / 400 Right Nare 400 / 400 Catheter 2200 / 2200 1300 / 1300 Urethral (Pastrana) 2200 / 2200 Wound Drainage 50 / 50 0 / 0 0 / 0 Lower Abdomen 0 / 0 0 / 0 0 / 0 Midline 0 / 0 Right Lower Abdomen 50 / 50 0 / 0 0 / 0 Other: Stool Consistency liquid Stool Color Brown Brown Yellow Weight 81.3 kg Blood Glucose* 107 115 100 Patient Weight 08/14/18 23:59 Weight 81.3 kg - General physical appearance well developed, no distress, no pain - Eyes PERRL, normal ocular movement - ENT normal mucosa, normocephalic - Neck Neck exam: trachea midline - Respiratory normal expansion, normal respiratory effort - Cardiovascular Cardiovascular exam: Present: RRR - Abdomen Abdomen: Present: bowel sounds present, soft, tender - Incision Incision: Present: clean and dry, open (wound vac in place) - Integumentary no rash - Neurologic CN 2-12 grossly intact - Musculoskeletal normal posture - Psychiatric oriented to time, oriented to person, oriented to place, memory intact - Labs 08/13/18 08:27 08/14/18 05:40 Diabetes panel 08/14/18 Range/Units 05:40 Sodium 142 (136-145) mEq/L Potassium 3.2 L (3.5-5.1) mEq/L Chloride 108 H (98-107) mEq/L Carbon Dioxide 27 (23-29) mEq/L BUN 4 L (6-20) mg/dL Creatinine 0.46 L (0.60-1.20) mg/dL Glucose 103 (70-105) mg/dL Calcium 8.0 L (8.6-10.3) mg/dL Triglycerides 200 H (< 150) mg/dL Calcium panel 08/14/18 Range/Units 05:40 Calcium 8.0 L (8.6-10.3) mg/dL Phosphorus 3.3 (2.7-4.5) mg/dL Pituitary panel 08/14/18 Range/Units 05:40 Sodium 142 (136-145) mEq/L Potassium 3.2 L (3.5-5.1) mEq/L Chloride 108 H (98-107) mEq/L Carbon Dioxide 27 (23-29) mEq/L BUN 4 L (6-20) mg/dL Creatinine 0.46 L (0.60-1.20) mg/dL Glucose 103 (70-105) mg/dL Calcium 8.0 L (8.6-10.3) mg/dL Adrenal panel 08/14/18 Range/Units 05:40 Sodium 142 (136-145) mEq/L Potassium 3.2 L (3.5-5.1) mEq/L Chloride 108 H (98-107) mEq/L Carbon Dioxide 27 (23-29) mEq/L BUN 4 L (6-20) mg/dL Creatinine 0.46 L (0.60-1.20) mg/dL Glucose 103 (70-105) mg/dL Calcium 8.0 L (8.6-10.3) mg/dL - Attending Attestation I have personally performed a face to face evaluation on this patient. I have reviewed and agree with the care plan. History and Exam by me shows:
[2018-08-14] MEDS: Ondansetron 4 MG/2 ML VIAL IVP SCH ×3 (12:53→17:18)
[2018-08-14] MEDS ORDERED: OXYCODONE Oral CONC 10 MG/0.5 ML ORAL.SYG SL PRN (13:44)
[2018-08-14] MEDS ORDERED: Clinimix E 5%-15% SOLUTION 2,000 ML with MVI, adult with vitamin K 10 ML IVC SCH ×2 (17:00)
[2018-08-14] MEDS: *HR* OxyCODONE/APAP 5/325 TABLET PO PRN (17:18)
[2018-08-15] MEDS: Ondansetron 4 MG/2 ML VIAL IVP SCH ×4 (01:24→16:46)
[2018-08-15] MEDS: Piperacillin/Tazobactam 3.375 GM in 0.9 % Sodium Chloride Mini Bag 100 ML IVPB SCH ×3 (01:24→16:47)
[2018-08-15] MEDS: Insulin LISPRO 300 UNITS/3 ML VIAL SQ SCH ×5 (01:25→20:11)
[2018-08-15] MEDS: *HR* OxyCODONE/APAP 5/325 TABLET PO PRN ×4 (02:37→20:14)
[2018-08-15 05:15] LABS: Basophils # 0.1 K/mcL (0.0-0.2); Basophils % 0.4 %; Eosinophils # 0.6 K/mcL (0.0-0.6); Eosinophils % 5.5 %; Hematocrit 31.7 % (35.3-44.9); Hemoglobin 10.4 g/dL (11.5-15.4); Immature Granulocytes % 1.7 % (0-4); Lymphocytes # 1.5 K/mcL (0.6-4.6); Lymphocytes % 12.8 %; Mean Corpuscular HGB Conc 32.8 g/dL (31.6-35.5); Mean Corpuscular Hemoglobin 30.7 pg (28.0-33.3); Mean Corpuscular Volume 93.5 fL (83.0-100.0); Mean Platelet Volume 9.4 fL (9.4-12.4); Monocytes # 0.8 K/mcL (0.0-1.3); Monocytes % 7.1 %; Neutrophils # 8.3 K/mcL (1.6-8.9); Platelet Count 439 K/mcL (140-400); Red Blood Count 3.39 M/mcL (3.82-4.97); Red Cell Distribution Width 15.1 % (11.5-14.5); Segmented Neutrophils % 72.5 %
[2018-08-15 05:33] LABS: BUN/Creatinine Ratio 10 (6-26); Blood Urea Nitrogen 5 mg/dL (6-20); Calcium 8.2 mg/dL (8.6-10.3); Carbon Dioxide 25 mEq/L (23-29); Chloride 109 mEq/L (98-107); Glucose 97 mg/dL (70-105); Magnesium 2.1 mg/dL (1.6-2.6); Osmolality,Calculated 287 (280-300); Phosphorous 3.3 mg/dL (2.7-4.5); Potassium 3.7 mEq/L (3.5-5.1); Sodium 140 mEq/L (136-145); eGFR For Non-African Americans > 60 (> 60)
[2018-08-15] MEDS: *HR* Heparin 5,000 UNIT/ML VIAL SQ SCH ×2 (05:57→16:46)
[2018-08-15] MEDS: Fluconazole 400 MG/200 ML 400 MG/200 ML BAG IVPB SCH (08:17)
[2018-08-15] MEDS: *HR* LORazepam 2 MG/ML VIAL IVP PRN ×2 (08:18→20:14)
[2018-08-15] MEDS: Nicotine 7 MG PATCH.TD24 TD SCH (12:40)
[2018-08-15] MEDS: 0.9 % Sodium Chloride 1,000 ML IVC SCH ×2 (14:35→14:36)
[2018-08-16] MEDS: Piperacillin/Tazobactam 3.375 GM in 0.9 % Sodium Chloride Mini Bag 100 ML IVPB SCH ×2 (00:55→09:11)
[2018-08-16] MEDS: Ondansetron 4 MG/2 ML VIAL IVP SCH ×3 (00:56→11:54)
[2018-08-16] MEDS: *HR* Heparin 5,000 UNIT/ML VIAL SQ SCH (05:06)
[2018-08-16] MEDS ORDERED: Fluconazole 100 MG TABLET PO SCH (09:00)
[2018-08-16] MEDS: *HR* OxyCODONE/APAP 5/325 TABLET PO PRN (09:10)
[2018-08-16] MEDS: Nicotine 7 MG PATCH.TD24 TD SCH (09:15)
[2018-08-16 09:39] LABS: Basophils # 0.1 K/mcL (0.0-0.2); Basophils % 0.6 %; Eosinophils # 0.7 K/mcL (0.0-0.6); Eosinophils % 6.9 %; Hematocrit 34.2 % (35.3-44.9); Hemoglobin 11.4 g/dL (11.5-15.4); Lymphocytes # 1.6 K/mcL (0.6-4.6); Lymphocytes % 15.5 %; Mean Corpuscular HGB Conc 33.3 g/dL (31.6-35.5); Mean Corpuscular Hemoglobin 30.8 pg (28.0-33.3); Mean Corpuscular Volume 92.4 fL (83.0-100.0); Mean Platelet Volume 9.5 fL (9.4-12.4); Monocytes # 0.7 K/mcL (0.0-1.3); Monocytes % 7.1 %; Neutrophils # 6.8 K/mcL (1.6-8.9); Platelet Count 477 K/mcL (140-400); Red Cell Distribution Width 15.5 % (11.5-14.5); Segmented Neutrophils % 67.9 %
--- NOTE | 2018-08-16 12:14 | Discharge Summary ---
Orders not resulted at time of discharge: Pending orders 08/07/18 10:48 US anesthesia pain block [US] Routine 08/16/18 09:00 XR abdomen 2V [XR] Routine Date of Encounter: 08/16/18 Time of Encounter: 11:00 - Discharge Diagnosis (1) Diverticulitis of large intestine with abscess Priority: Primary Status: Acute Qualifiers: Diverticulitis bleeding: with bleeding Qualified Code(s): K57.21 - Diverticulitis of large intestine with perforation and abscess with bleeding (2) Leukocytosis Priority: Secondary Status: Resolved Qualifiers: Leukocytosis type: unspecified Qualified Code(s): D72.829 - Elevated white blood cell count, unspecified (3) Status post Eugenia procedure Priority: Secondary Status: Acute (4) Hypokalemia Priority: Secondary Status: Acute (5) Tobacco abuse Priority: Secondary Status: Chronic (6) Moderate protein malnutrition Priority: Secondary Status: Acute (7) Nausea Priority: Secondary Status: Acute (8) Situational depression Priority: Secondary Status: Acute General Surgery Exam Initial Vital Signs Temp Pulse Resp BP Pulse Ox 97.8 F 135 16 118/86 97 08/05/18 08:44 08/05/18 08:44 08/05/18 08:44 08/05/18 08:44 08/05/18 08:44 Vital Signs Temp Pulse Resp BP Pulse Ox 08/16/18 12:15 98 F 63 16 118/77 97 08/16/18 08:20 98.4 F 86 15 113/81 96 08/16/18 04:19 98.7 F 77 16 136/87 97 08/15/18 19:16 98.3 F 73 16 114/75 98 08/15/18 17:21 97.8 F 62 16 136/88 97 08/15/18 15:01 98.2 F 73 16 113/75 97 Intake and Output 08/15/18 08/16/18 08/16/18 23:59 07:59 15:59 Intake Total 100 / 100 100 / 100 Output Total 0 / 0 600 / 600 750 / 750 Balance 100 / 100 -500 / -500 -750 / -750 Intake: IV Fluids 100 / 100 100 / 100 Zosyn 3.375 GM In 0.9 % Sodium 100 / 100 100 / 100 Chloride (Mini-Bag +) 100 ML @ 25 mls/hr IVPB Q8HR [facility] Rx#: [id number] Output: Stool 250 / 250 Catheter 600 / 600 500 / 500 Wound Drainage 0 / 0 Lower Abdomen 0 / 0 Midline 0 / 0 Right Lower Abdomen 0 / 0 Other: Stool Consistency liquid Stool Color Brown Blood Glucose* 84 81 VITAL SIGNS: Reviewed. See [facility] GENERAL: In no apparent distress. HEENT: Normocephalic, atraumatic, pupils are equal and reactive, extraocular motions intact, oropharynx is pink and moist, there is no neck adenopathy or JVD noted. CHEST/RESPIRATORY: The thorax is free from signs of trauma. Lung sounds: clear to auscultation, normal respiratory effort CARDIAC: Regular rate and rhythm. Normal S1 and S2, without murmurs, gallops, or rubs. VASCULAR: No Edema. 2+ peripheral pulses. ABDOMEN: soft, expected postoperative tenderness, active bowel sounds INCISION: Surgical incision is clean, dry, and intact. There are no signs of cellulitis or infection noted. WOUNDS/DRAINS: stoma is pink and moist. KAROL drain DC'd; pastrana in place MUSCULOSKELETAL: Good range of motion of all major joints. Extremities without clubbing, cyanosis or edema. NEUROLOGIC EXAM: Alert and oriented x 3. Speech normal. Follows commands. PSYCHIATRIC: Mood normal. SKIN: No rash or lesions. - Hospital Course Hospital course: Ms. Perales is a 42 year old female who presented on 08/05/2018 for abominal pain. She was noted to have perforated diverticulitis and was treated medically. On 08/07/2017 she reported increased abdominal discomfort and a CT of the abdomen and pelvis was obtained which noted progression of her perforated divert iculitis. She was taken to the operating room where she underwent an exploratory laparotomy, rectosigmoid resection, take down of splenic flexure, and colostomy placement, incidental appendectomy in repair bladder laceration. The remainder of her hospital course was uncomplicated. She is ambulating avoiding without difficulty per pastrana, tolerating a diet without nausea or vomiting, vital signs are stable, and she is afebrile. We will begin discharge planning to home with a follow-up with urology in 2 weeks, a PCP in 2 weeks, it's surgery 2 weeks. She will be discharged with the Pastrana catheter in place. She will be discharged with home health care which will begin tomorrow. Time spent discussing smoking cessation with patient: 3 to 10 minutes - Time Spent with Patient Total time spent providing and/or coordinating discharge services: - Discharge Medications Prescriptions: New Ondansetron ODT [Zofran ODT] 4 mg SL Q4HR PRN #15 tab.rapdis PRN Reason: Postsurgical nausea OxyCODONE/APAP 5/325 [Percocet 5/325 MG] 1 each PO Q6HR PRN 7 Days #28 tablet PRN Reason: Pain Docusate Sodium [Colace] 100 mg PO BID PRN #30 capsule PRN Reason: Contstipation Escitalopram [Lexapro] 10 mg PO DAILY #30 tablet Ibuprofen 800 mg PO Q8H PRN #30 tablet PRN Reason: Postsurgical pain Polyethylene Glycol 3350 [MiraLAX Powder Bulk 17.9 Oz] 1 scoop PO DAILY 30 Days #510 gm Fluconazole [Diflucan] 200 mg PO DAILY #2 tablet Ciprofloxacin [Cipro] 500 mg PO BID 7 Days #14 tablet metroNIDAZOLE [Metronidazole] 500 mg PO TID 7 Days #21 tablet Discontinued Acetaminophen [Tylenol] 1,000 mg PO DAILY PRN PRN Reason: Headache Home Medications: Ciprofloxacin [Cipro] 500 mg PO BID 7 Days #14 tablet 08/16/18 [Rx] Docusate Sodium [Colace] 100 mg PO BID PRN #30 capsule 08/16/18 [Rx] Escitalopram [Lexapro] 10 mg PO DAILY #30 tablet 08/16/18 [Rx] Fluconazole [Diflucan] 200 mg PO DAILY #2 tablet 08/16/18 [Rx] Ibuprofen 800 mg PO Q8H PRN #30 tablet 08/16/18 [Rx] Ondansetron ODT [Zofran ODT] 4 mg SL Q4HR PRN #15 tab.rapdis 08/16/18 [Rx] OxyCODONE/APAP 5/325 [Percocet 5/325 MG] 1 each PO Q6HR PRN 7 Days #28 tablet 08/16/18 [Rx] Polyethylene Glycol 3350 [MiraLAX Powder Bulk 17.9 Oz] 1 scoop PO DAILY 30 Days #510 gm 08/16/18 [Rx] metroNIDAZOLE [Metronidazole] 500 mg PO TID 7 Days #21 tablet 08/16/18 [Rx] Allergies/Adverse Reactions: Allergy/AdvReac Type Severity Reaction Status Date / Time diphenhydramine AdvReac "FEELS Verified 08/06/18 22:40 [From Benadryl] LIKE A HEART ATTACK, HEART RACES" hydrocodone [From Vicodin] AdvReac Vomiting Verified 08/06/18 22:40 Date of admission: 08/05/18 11:01 Primary care physician: PCP NONE Consults: 08/13/18 07:50 Consult to Nutrition [CONS] Routine Comment: Consulting Provider: NUTRITION Reason for Dietary Consult: TPN Start and Manage 08/14/18 10:18 Consult to Physical Therapy [CONS] Routine Comment: Evaluate, develop and implement POC Reason for Consult: Mobilization and d/c planning HHC vs placment Does patient have active BEDREST order?: No Is patient medically & hemodynamically stable?: Yes Patient assessed for mobility or mobilized this visit?: No Consult to Rn X Ray [CONS] Routine Reason for SW Consult: HHC for new ostomy teachng, [place], and possible therapies vs placement 08/14/18 13:37 Consult to Wound Care [CONS] Stat Reason for Consult: new ostomy teaching Time Notified: 13:38 Call Completed: No Labs on day of discharge: Labs from last 24 hours 08/16/18 08/15/18 08/15/18 09:22 17:14 12:13 WBC 10.0 RBC 3.70 L Hgb 11.4 L Hct 34.2 L MCV 92.4 MCH 30.8 MCHC 33.3 RDW 15.5 H Plt Count 477 H MPV 9.5 Immature Gran % 2.0 Seg Neutrophils % 67.9 Lymphocytes % 15.5 Monocytes % 7.1 Eosinophils % 6.9 Basophils % 0.6 Neutrophils # 6.8 Lymphocytes # 1.6 Monocytes # 0.7 Eosinophils # 0.7 H Basophils # 0.1 POC Glucose 84 92 08/14/18 08/14/18 11:14 08:22 WBC RBC Hgb Hct MCV MCH MCHC RDW Plt Count MPV Immature Gran % Seg Neutrophils % Lymphocytes % Monocytes % Eosinophils % Basophils % Neutrophils # Lymphocytes # Monocytes # Eosinophils # Basophils # POC Glucose 100 H 95 - Impressions ITS Impressions Abdomen/Pelvis CT 08/05/18 09:34 IMPRESSION: Acute rectosigmoid diverticulitis with small mariola-diverticular abscess. D/ / Rodrigo Hanson MD / Rodrigo Hanson MD Interpreting Provider: Rodrigo Hanson MD Abdomen/Pelvis CT 08/07/18 07:36 IMPRESSION: Persistent findings for sigmoid diverticulitis with worsened appearance as compared to prior exam 08/05/2018. Persistent and slightly worsened perisigmoidal abscess as compared to prior exam. New somewhat focal fluid anteriorly within the pelvis with possible developing organized appearance concerning for new developing abscesses, not definitely connected with the original abscess with largest loculation measuring 2.3 x 1.7 cm. New scattered intraperitoneal free air concerning for bowel perforation. Mild ascites, worsened from prior exam. Mild extrahepatic and to a lesser extent central intrahepatic biliary ductal dilatation. This appears to be new from prior exam. Gallbladder is still in place and unremarkable. No other liver abnormalities are seen and the pancreas appears unremarkable. Clinical and laboratory correlation is suggested and if clinical concern for biliary obstruction consider further evaluation with MRI/MRCP or ERCP. Critical results were called by Dr. Aryan Pantoja MD to Tamela Diaz RN on 08/07/2018 at 08:50. D/ / 08/07/2018 08:56:34 Aryan Pantoja MD / juliet Interpreting Provider: Aryan Pantoja MD Chest X-Ray 08/07/18 11:19 IMPRESSION: 1. Right IJ catheter tip in right atrium. No pneumothorax. 2. Hypoinflated lungs and right hemidiaphragm elevation. Right basilar atelectasis. 3. Enteric catheter with side port below the GE junction. D/ / Emily Blanco MD / Emily garg MD Interpreting Provider: Emily Blanco MD - Patient Status Disposition: Home Health Service Condition: Fair Functional capacity at discharge: independent ambulation Overall status at discharge: patient is progressing back to baseline - Discharge Instructions Instructions: Colostomy Care (DC), Low Fiber Diet (GEN), Pastrana Catheter Placement and Care (DC), Colectomy (DC), Urinary Leg Bag (GEN) Follow Up With: Cory Meza MD [Partnered Physician] - 08/22/18 2:00 pm (2 weeks) Yanci Leonardo MD [Partnered Physician] - 08/30/18 8:55 am Malinda Gardner CNP [Partnered Physician] - 08/22/18 8:30 am (2 weeks Please arrive a half hour early to fill out paperwork. You will need to bring a photo ID, insurance card and any medications you are on. If you need to cancel, please give a 24 hour notice. Thank you) Additional Instructions: General Surgical Discharge Instructions 1. No pushing, pulling, or lifting greater than 15 lbs for 2-4 weeks (depending upon procedure). 2. You may shower beginning today, but no tub baths, soaking, or swimming for 2 weeks. 3. You may resume driving when you are off narcotics and are safe to react in a car. 4. Take ibuprofen every 8 hours for discomfort. If this does not relieve discomfort, you may take the as needed Percocet. Take narcotics as directed. Do not take more narcotics then directed and do not share your narcotics with any other person. Do not drink alcohol while on narcotics. 5. Take stool softeners (Colace) and Miralax daily as directed until seen in follow up 6. Report any fevers greater than 100.5F, increase abdominal discomfort, drainage that looks like pus, increased redness or pain at the surgical site, or any vomiting. 7. Report any pain in the calves, shortness of breath, or rapid heartbeat. 8. Follow-up in the office as directed. 9. If you were prescribed antibiotics, do not stop them without talking to your provider. Do Not Drink Alcohol While Taking Metronidazole. Drinking Alcohol While Taking Metronidazole Can Cause Violent Abdominal Pain and Vomiting. Refrain from Alcohol for 48 Hours after Stopping Metronidazole. Wound Vac: black foam packing in dressing to be changed every Monday/Monday/Monday per home health. Maintain suction at -125 mmHg Pastrana: Do not remove Pastrana catheter until seen in directed by urology. May apply leg bag during the day. Use Pastrana bag for night collection. Colostomy Care - Diet and Activity Activity: increase activity as tolerated Diet: other (soft, low fiber, chopped meat)
[2018-08-16 12:24] VITALS: BP 118/77
--- NOTE | 2018-08-16 12:51 | Physician Discharge Referral ---
Home Health/Hosp Referral Info Transfer to: Home Health Attending Provider: Dr. Eryn Leonardo Provider in Charge Post Discharge: Other (Same) - Diagnosis (1) Diverticulitis of large intestine with abscess Priority: Primary Status: Acute (2) Leukocytosis Priority: Secondary Status: Resolved (3) Status post Eugenia procedure Priority: Secondary Status: Acute (4) Hypokalemia Priority: Secondary Status: Acute (5) Tobacco abuse Priority: Secondary Status: Chronic (6) Moderate protein malnutrition Priority: Secondary Status: Acute (7) Nausea Priority: Secondary Status: Acute (8) Situational depression Priority: Secondary Status: Acute - Respiratory Orders Smoking Cessation: Smoking cessation has been advised. For more information, call the [employer] Tobacco Quit Line at 0-984-MKWN-NOW. - Dressing/Wound Care Type of Dressing/Treatments w/Frequency: see below - Diet/Nutrition Diet/Nutrition: List: see below - Activity Activity Orders: Up ad marc - Services Needed Following services are medically necessary services: Nursing Other Treatments: General Surgical Discharge Instructions 1. No pushing, pulling, or lifting greater than 15 lbs for 2-4 weeks (depending upon procedure). 2. You may shower beginning today, but no tub baths, soaking, or swimming for 2 weeks. 3. You may resume driving when you are off narcotics and are safe to react in a car. 4. Take ibuprofen every 8 hours for discomfort. If this does not relieve discomfort, you may take the as needed Percocet. Take narcotics as directed. Do not take more narcotics then directed and do not share your narcotics with any other person. Do not drink alcohol while on narcotics. 5. Take stool softeners (Colace) and Miralax daily as directed until seen in follow up 6. Report any fevers greater than 100.5F, increase abdominal discomfort, drainage that looks like pus, increased redness or pain at the surgical site, or any vomiting. 7. Report any pain in the calves, shortness of breath, or rapid heartbeat. 8. Follow-up in the office as directed. 9. If you were prescribed antibiotics, do not stop them without talking to your provider. Do Not Drink Alcohol While Taking Metronidazole. Drinking Alcohol While Taking Metronidazole Can Cause Violent Abdominal Pain and Vomiting. Refrain from Alcohol for 48 Hours after Stopping Metronidazole. Wound Vac: black foam packing in dressing to be changed every Monday/Monday/Monday per home health. Maintain suction at -125 mmHg Trivedi: Do not remove Trivedi catheter until seen in directed by urology. May apply leg bag during the day. Use Trivedi bag for night collection. Colostomy Care - Transfer Medications Prescriptions: Ondansetron ODT [Zofran ODT] 4 mg SL Q4HR PRN #15 tab.rapdis PRN Reason: Postsurgical nausea OxyCODONE/APAP 5/325 [Percocet 5/325 MG] 1 each PO Q6HR PRN 7 Days #28 tablet PRN Reason: Pain Ciprofloxacin [Cipro] 500 mg PO BID 7 Days #14 tablet Docusate Sodium [Colace] 100 mg PO BID PRN #30 capsule PRN Reason: Contstipation Escitalopram [Lexapro] 10 mg PO DAILY #30 tablet Fluconazole [Diflucan] 200 mg PO DAILY #2 tablet Ibuprofen 800 mg PO Q8H PRN #30 tablet PRN Reason: Postsurgical pain metroNIDAZOLE [Metronidazole] 500 mg PO TID 7 Days #21 tablet Polyethylene Glycol 3350 [MiraLAX Powder Bulk 17.9 Oz] 1 scoop PO DAILY 30 Days #510 gm Home Medications: Ciprofloxacin [Cipro] 500 mg PO BID 7 Days #14 tablet 08/16/18 [Rx] Docusate Sodium [Colace] 100 mg PO BID PRN #30 capsule 08/16/18 [Rx] Escitalopram [Lexapro] 10 mg PO DAILY #30 tablet 08/16/18 [Rx] Fluconazole [Diflucan] 200 mg PO DAILY #2 tablet 08/16/18 [Rx] Ibuprofen 800 mg PO Q8H PRN #30 tablet 08/16/18 [Rx] Ondansetron ODT [Zofran ODT] 4 mg SL Q4HR PRN #15 tab.rapdis 08/16/18 [Rx] OxyCODONE/APAP 5/325 [Percocet 5/325 MG] 1 each PO Q6HR PRN 7 Days #28 tablet 08/16/18 [Rx] Polyethylene Glycol 3350 [MiraLAX Powder Bulk 17.9 Oz] 1 scoop PO DAILY 30 Days #510 gm 08/16/18 [Rx] metroNIDAZOLE [Metronidazole] 500 mg PO TID 7 Days #21 tablet 08/16/18 [Rx] Allergies/Adverse Reactions: Allergy/AdvReac Type Severity Reaction Status Date / Time diphenhydramine AdvReac "FEELS Verified 08/06/18 22:40 [From Benadryl] LIKE A HEART ATTACK, HEART RACES" hydrocodone [From Vicodin] AdvReac Vomiting Verified 08/06/18 22:40 Certification: Further, I certify that my clinical findings support that this patient is homebound (i.e. absences from home require considerable and taxing effort and are for medical reasons or buddhist services or infrequently or short duration when for other reasons) because: Homebound Reason: Patient requires assistance of a person or device to safely leave home, Post-surgery restriction and or conditions limit ability to leave home, Leaving home requires considerable and taxing effort due to condition Attestation: My signature below is to certify that this patient is under my care and that I, or nurse practitioner, or a physician's study assistant working with me, has a face-to -face encounter with this patient.
== END 2018-08-16 15:42 | disposition home health service (06) | DRG 231 ==
LOC: 3BNU 08:42 → EMEROOARM 08:42 → OBSVTOIN 11:01 → 3BNU 12:35 → 3ANU 08-07 16:15
PROVIDERS: ADMIT Surgery; ATTEND Surgery
PROC: GENAPPY (ICD-10-PCS; 2018-08-07 17:30)

== ENCOUNTER 2018-11-19 11:07 | Inpatient (IN) ==
--- NOTE | 2018-11-19 11:19 | Anesthesia Evaluation PreOp ---
Date of Encounter: 11/19/18 Time of Encounter: 11:17 - Past History Planned Operation: Open Goel's Reversal Cardiac History: Denies any Significant Hx Pulmonary History: Smoker (20 years), Snore PLUG CUTTER History: Denies Any Significant HX Other Medical History: GERD, Other (anxiety/depression) Anesthesia History: No Prior Anesthetic Complications, Past Anesthesia (hysterec yvette) Alcohol Use: none Drug use: marijuana Medications and Allergies Docusate Sodium [Colace] 100 mg PO BID PRN #30 capsule 08/16/18 [Rx] HydrOXYzine 10 - 20 mg PO Q8H PRN 11/19/18 [History] Loratadine [Claritin] 10 mg PO DAILY 11/19/18 [History] Omeprazole [PriLOSEC] 20 mg PO DAILY 11/19/18 [History] Polyethylene Glycol 3350 [MiraLAX] 17 gm PO DAILY PRN 11/19/18 [History] Allergy/AdvReac Type Severity Reaction Status Date / Time diphenhydramine AdvReac "FEELS Verified 11/19/18 11:57 [From Benadryl] LIKE A HEART ATTACK, HEART RACES" hydrocodone [From Vicodin] AdvReac Vomiting Verified 11/19/18 11:57 - Meds/Allergy Pre-op Review Medications Reviewed: Yes Allergies Reviewed: Yes Beta Blockers on Current Med List: No Anesthesia Results - Labs Laboratory Tests 08/07/18 08/15/18 11/06/18 13:00 04:50 08:00 WBC 9.4 Hgb 14.0 Hct 43.0 Plt Count 341 Venous Sodium 137 Sodium 140 BUN 5 L Creatinine 0.48 L - Imaging EKG: report reviewed (08/05/2018 Sinus tachycardia) Anesthesia Exam O2 Sat Height 1.5 m Height 1.5 m Weight 76.657 kg Weight 76.657 kg O2 Sat by Pulse Oximetry 98 O2 Sat by Pulse Oximetry 98 Vital Signs Temp Pulse Resp BP Pulse Ox 98.1 F 95 18 114/80 98 11/19/18 11:24 11/19/18 11:24 11/19/18 11:24 11/19/18 11:24 11/19/18 11:24 Height: 4'11'' Weight: 169 lbs NPO (# of Hours): 8 Pain Scale: 0 Pain Scale Used: Numeric (1 - 10) - HEENT Pupil (Motor): EOMI Mallampati: II Teeth: Normal, Missing Denture Type: Upper: Partial Oral Opening: Greater than 3 - PLUG CUTTER LOC: Oriented PLUG CUTTER Motor: Normal RUE, Normal LUE, Normal RLE, Normal LLE, Normal Face PLUG CUTTER Sensory: Normal: RUE, LUE, RLE, LLE, Face - Cardiac Rhythm: Regular Murmur: None - Pulmonary Breath Sounds: bilateral Clear Respiratory Effort: Symmetrical Anesthesia Assess/Plan ASA Score: 2 Level of consciousness: Cooperative, Oriented, Tranquil Anesthetic Plan: General Monitoring Plan: Standard Monitors Recovery Plan: PACU
[2018-11-19] MEDS ORDERED: Albuterol 2.5 MG/3 ML NEBULIZER IH ONE (11:27)
[2018-11-19] MEDS ORDERED: cefOXitin 2,000 MG in Water for inj. (sterile) 20 ML 20 ML IVP ONE (11:27)
[2018-11-19] MEDS ORDERED: Ringers Solution, Lactated 1,000 ML IVC SCH ×2 (11:30→20:43)
[2018-11-19] MEDS ORDERED: Scopolamine Patch 1.5 MG PATCH.TD72 TD ONE ×2 (12:14→20:43)
[2018-11-19] MEDS ORDERED: *HR* OxyCODONE Immed Rel 5 MG TABLET PO PRN (12:16)
[2018-11-19] MEDS ORDERED: *HR* Promethazine 25 MG/ML VIAL IVP PRN ×2 (12:16→20:43)
[2018-11-19] MEDS ORDERED: Ondansetron 4 MG/2 ML VIAL IVP ONE (12:16)
--- NOTE | 2018-11-19 14:35 | History & Physical Report ---
Date of Encounter: 11/19/18 Time of Encounter: 14:35 24 Hour HP Update - Instructions Instructions: If the History and Physical is less than 30 days old and was completed prior to A.M. admission and or procedure and has NOT been updated on calendar day of procedure please complete this update prior to performing procedure. - Update Patient reports changes in Medical Condition: No Changes in examination, assessment, or condition: No Changes in Medication: No Surgery Remains Indicated: Yes Consent for Planned Operative Procedure(s) Verified: Yes - Pre-Operative Checklist Prophylactic Antibiotic Ordered: Yes Home Medications Include Beta Margie: No Is VTE Prophylaxis Indicated?: Yes
[2018-11-19] MEDS ORDERED: Lidocaine -MPF 4% 5 ML AMPUL ONE (14:37)
[2018-11-19] MEDS ORDERED: *HR* Rocuronium Bromide 50 MG/5 ML VIAL ONE ×2 (14:37→16:25)
[2018-11-19] MEDS ORDERED: Dexamethasone 4 MG/ML VIAL ONE (14:37)
[2018-11-19] MEDS ORDERED: Lidocaine -MPF 2% 2 ML VIAL ONE ×2 (14:37→15:07)
[2018-11-19] MEDS ORDERED: Ketorolac 30 MG/ML VIAL ONE (14:37)
[2018-11-19] MEDS ORDERED: Ondansetron 4 MG/2 ML VIAL ONE (14:37)
[2018-11-19] MEDS ORDERED: Neostigmine Methylsulfate 3 MG/3 ML SYRINGE ONE (14:37)
[2018-11-19] MEDS ORDERED: *HR* Propofol 200 MG/20 ML VIAL IVP ONE (14:38)
[2018-11-19] MEDS ORDERED: *HR* FentaNYL (PF) 100 MCG/2 ML VIAL ONE (14:38)
[2018-11-19] MEDS ORDERED: *HR* Midazolam HCl 2 MG/2 ML VIAL ONE (14:38)
[2018-11-19] MEDS ORDERED: Ketamine *HR* 500 MG/10 ML MDV ONE (15:43)
[2018-11-19] MEDS ORDERED: *HR* HYDROMORPHONE 2 MG/ML VIAL ONE (15:45)
[2018-11-19] MEDS ORDERED: SUGAMMADEX SODIUM 500 MG/5 ML VIAL IV ONE (18:18)
--- NOTE | 2018-11-19 19:18 | Operative Note ---
Date of procedure: 11/19/18 Pre-op diagnosis: perforated sigmoid diverticulitis Post-op diagnosis: same Procedure: Eugenia reversal Complications: none immediate Anesthesia: GETA, local Surgeon: Yanci Leonardo Was there an legislative assistant present: Yes Direct Mail Marketer: Trice Henao Estimated blood loss (cc): 50 IV fluids (cc): 2,000 Urine output (cc): 50 Specimen: proximal rectum, anastomotic rings, colostomy Condition: stable Disposition: PACU
[2018-11-19] MEDS: *HR* HYDROmorphone (PF) 1 MG/ML SYRINGE IVP PRN ×5 (19:19→19:57)
[2018-11-19] MEDS ORDERED: *HR* Metoprolol 5 MG/5 ML VIAL IVP PRN (20:43)
[2018-11-19] MEDS ORDERED: Ondansetron 4 MG/2 ML VIAL IVP PRN (20:43)
[2018-11-19] MEDS ORDERED: Naloxone 0.4 MG/ML INJ IVP PRN ×2 (20:43)
[2018-11-19] MEDS ORDERED: *HR* Morphine 30 MG/ 30 ML PCA IVC PRN (20:43)
--- NOTE | 2018-11-19 20:45 | Anesthesia Evaluation Post Op ---
Date of Encounter: 11/19/18 Time of Encounter: 20:17 - Vital Signs Vital Signs: Last Vital Signs Temp 98.2 F 11/19/18 20:17 Pulse 106 11/19/18 20:17 Resp 16 11/19/18 20:17 BP 113/76 11/19/18 20:17 Pulse Ox 94 11/19/18 20:17 - Lungs Lungs: Clear Ascult./Percussion - Airway Airway: Non-obstructed - Cardiovascular Regular Rate - Mental Status Mental Status: Alert & Oriented, Answers Appropriately - Pain Pain Scale: 2 - Nausea Vomiting Nausea Vomiting: Not Present - Hydration Hydration: NPO - Discharge PostOp Status: Transfer Patient to floor
[2018-11-20] MEDS: Acetaminophen IV 1,000 MG/100 ML INFUS..BTL IVPB SCH ×4 (00:52→17:56)
[2018-11-20] MEDS: Piperacillin/Tazobactam 3.375 GM in 0.9 % Sodium Chloride Mini Bag 100 ML IVPB SCH ×3 (01:24→16:01)
[2018-11-20 07:04] LABS: Basophils % 0.1 %; Hematocrit 40.5 % (35.3-44.9); Hemoglobin 13.3 g/dL (11.5-15.4); Immature Granulocytes % 0.3 % (0-4); Lymphocytes # 0.8 K/mcL (0.6-4.6); Lymphocytes % 4.9 %; Mean Corpuscular HGB Conc 32.8 g/dL (31.6-35.5); Mean Corpuscular Hemoglobin 31.4 pg (28.0-33.3); Mean Corpuscular Volume 95.5 fL (83.0-100.0); Mean Platelet Volume 9.3 fL (9.4-12.4); Monocytes # 1.4 K/mcL (0.0-1.3); Monocytes % 8.4 %; Neutrophils # 14.1 K/mcL (1.6-8.9); Platelet Count 353 K/mcL (140-400); Red Blood Count 4.24 M/mcL (3.82-4.97); Red Cell Distribution Width 14.7 % (11.5-14.5); Segmented Neutrophils % 86.3 %; White Blood Count 16.4 K/mcL (4.3-11.1)
[2018-11-20 07:08] LABS: BUN/Creatinine Ratio 14 (6-26); Blood Urea Nitrogen 10 mg/dL (6-20); Calcium 8.8 mg/dL (8.6-10.3); Carbon Dioxide 26 mEq/L (23-29); Chloride 104 mEq/L (98-107); Glucose 141 mg/dL (70-105); Magnesium 1.8 mg/dL (1.6-2.6); Osmolality,Calculated 281 (280-300); Phosphorous 3.1 mg/dL (2.7-4.5); Potassium 4.1 mEq/L (3.5-5.1); Sodium 135 mEq/L (136-145); eGFR For African Americans > 60 (> 60); eGFR For Non-African Americans > 60 (> 60)
[2018-11-20] MEDS: *HR* Morphine 30 MG/ 30 ML PCA IVC PRN ×2 (08:49→17:52)
--- NOTE | 2018-11-20 09:12 | General Surgery Progress Note ---
<Becky Wallace Pacheco - Last Filed: 11/22/18 10:37> Date of Encounter: 11/22/18 Time of Encounter: 08:40 - Assessment and Plan (1) Status post Eugenia procedure Current Visit: Yes Status: Acute Date of procedure: 11/19/18 Pre-op diagnosis: perforated sigmoid diverticulitis Post-op diagnosis: same Procedure: Eugenia reversal Complications: none immediate Anesthesia: GETA, local Surgeon: Yanci Leonardo POD #3 as above. Pathology remains pending. She is recovering as expected. She does report some nausea today. She denies passing flatus. She states her pain is controlled. 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 Lidocaine patches to the abdomen Continue G.I. and DVT prophylaxis Incentive spirometry 10 times every hour while awake Out of bed to chair TID Activity as tolerated Apply ice 20 minutes on 20 minutes off as needed NPO continue IV fluids repeat a.m. labs strict intake and output daily wound care (packing to the left lateral incision), May leave midline open to air if desired, KAROL care (2) Nausea Current Visit: No Status: Acute Will schedule Zofran. Continue PRN promethazine (3) Anxiety Current Visit: Yes Status: Acute Acute on chronic anxiety. Continue PO hydroxyzine and PRN IV Ativan Subjective Patient reports: no new complaints, feels better, still having pain, pain is less, voiding w/o difficulty, no flatus, no bowel movement, nausea, afebrile Objective Vital Signs - Last 8 Hours Temp Pulse Resp BP Pulse Ox 11/20/18 07:07 97.9 F 82 14 122/81 11/20/18 05:06 98 F 90 15 109/74 95 Intake and Output 11/19/18 11/20/18 11/20/18 23:59 07:59 15:59 Intake Total 380 / 480 100 / 480 Output Total 850 / 850 Balance -470 / -370 100 / -370 Intake: IV Fluids 200 / 300 100 / 300 Ofirmev 1,000 mg/100 ml 1,000 100 / 200 100 / 200 mg In 100 ml @ 400 mls/hr IVPB Q6HR [facility] Rx#:[id number] Zosyn 3.375 GM In 0.9 % Sodium 100 / 100 Chloride (Mini-Bag +) 100 ML @ 25 mls/hr IVPB Q8HR [facility] Rx#: [id number] Oral 180 / 180 Output: Catheter 850 / 850 Other: # Bowel Movements 0 Weight 77.2 kg Blood Glucose* 126 Patient Weight 11/20/18 23:59 Weight 77.2 kg - General physical appearance no distress - Eyes normal ocular movement - ENT atraumatic, normocephalic - Neck Neck exam: trachea midline - Respiratory other (Decreased breath sounds) - Cardiovascular Cardiovascular exam: Present: RRR - Abdomen Abdomen: Present: soft, tender (Expected postoperative), wound (KAROL site unremarkable. Small amount of serous drainage). Absent: bowel sounds present Hernia: none - Incision Incision: Present: clean and dry, intact - Integumentary no rash - Neurologic normal sensation - Musculoskeletal normal posture - Psychiatric oriented to time, oriented to person, oriented to place, speech is normal, memory intact - Labs 11/22/18 04:50 11/22/18 04:50 Diabetes panel 11/20/18 Range/Units 06:36 Sodium 135 L (136-145) mEq/L Potassium 4.1 (3.5-5.1) mEq/L Chloride 104 (98-107) mEq/L Carbon Dioxide 26 (23-29) mEq/L BUN 10 (6-20) mg/dL Creatinine 0.70 (0.60-1.20) mg/dL Glucose 141 H (70-105) mg/dL Calcium 8.8 (8.6-10.3) mg/dL Calcium panel 11/20/18 Range/Units 06:36 Calcium 8.8 (8.6-10.3) mg/dL Phosphorus 3.1 (2.7-4.5) mg/dL Pituitary panel 11/20/18 Range/Units 06:36 Sodium 135 L (136-145) mEq/L Potassium 4.1 (3.5-5.1) mEq/L Chloride 104 (98-107) mEq/L Carbon Dioxide 26 (23-29) mEq/L BUN 10 (6-20) mg/dL Creatinine 0.70 (0.60-1.20) mg/dL Glucose 141 H (70-105) mg/dL Calcium 8.8 (8.6-10.3) mg/dL Adrenal panel 11/20/18 Range/Units 06:36 Sodium 135 L (136-145) mEq/L Potassium 4.1 (3.5-5.1) mEq/L Chloride 104 (98-107) mEq/L Carbon Dioxide 26 (23-29) mEq/L BUN 10 (6-20) mg/dL Creatinine 0.70 (0.60-1.20) mg/dL Glucose 141 H (70-105) mg/dL Calcium 8.8 (8.6-10.3) mg/dL Consult Discharge Plan - Plan Referrals: Malinda Gardner CNP [Primary Care Provider] - Becky Wallace CNP [Advanced Practice Nurse] - 12/03/18 1:15 pm <Yanci Leonardo - Last Filed: 11/23/18 09:44> Date of Encounter: 11/22/18 Time of Encounter: 17:00 - Assessment and Plan (1) History of colostomy reversal Current Visit: Yes Status: Acute post op Eugenia reversal +bs, no flatus or bm ok for popcicles, icee's continue ivf prn pain control gi dvt prophylaxis ambulate OOB to chair patient doing well daily dressing changes (2) DVT prophylaxis Current Visit: No Status: Acute heparin sq (3) Anxiety Current Visit: Yes Status: Acute continue home meds and prn ativan Subjective Narrative: pain is improved, feels things moving in the abdomen/bowels rumbling but no flatus or bm minimal nausea afebrile Objective Vital Signs - Last 8 Hours Temp Pulse Resp BP Pulse Ox 11/23/18 06:38 97.9 F 64 15 101/66 96 11/23/18 03:41 98.2 F 91 16 107/71 93 Intake and Output 11/22/18 11/23/18 11/23/18 23:59 07:59 15:59 Intake Total 1200 / 2940 200 / 200 Output Total 700 / 2170 200 / 250 50 / 250 Balance 500 / 770 0 / -50 -50 / -50 Intake: IV Fluids 1200 / 2700 200 / 200 KCl 20mEq IN D5%-0.45 NACL 20 1000 / 2000 meq In 1,000 ml @ 75 mls/hr IVC .[id number] [facility] Rx#:[id number] Ofirmev 1,000 mg/100 ml 1,000 100 / 400 100 / 100 mg In 100 ml @ 400 mls/hr IVPB Q6HR [facility] Rx#:[id number] Zosyn 3.375 GM In 0.9 % Sodium 100 / 300 100 / 100 Chloride (Mini-Bag +) 100 ML @ 25 mls/hr IVPB Q8HR [facility] Rx#: [id number] Oral 0 / 240 Output: Urine 700 / 2150 200 / 200 Wound Drainage 0 / 50 50 / 50 Right Lower Abdomen 0 / 50 50 / 50 Other: Meal NPO Weight 79.4 kg Blood Glucose* 150 86 Patient Weight 11/23/18 23:59 Weight 79.4 kg - General physical appearance well developed, well nourished, no distress - Eyes normal ocular movement - ENT normal mucosa - Neck Neck exam: trachea midline - Respiratory normal expansion, clear to auscultation - Cardiovascular Cardiovascular exam: Present: RRR - Abdomen Abdomen: Present: bowel sounds present, soft, tender, wound - Incision Incision: Present: clean and dry, intact - Integumentary no rash - Neurologic normal sensation - Musculoskeletal normal posture - Psychiatric oriented to time, oriented to person, oriented to place, speech is normal, memory intact - Labs 11/23/18 04:50 11/23/18 04:50 Diabetes panel 11/23/18 Range/Units 04:50 Sodium 139 (136-145) mEq/L Potassium 3.7 (3.5-5.1) mEq/L Chloride 106 (98-107) mEq/L Carbon Dioxide 26 (23-29) mEq/L BUN 4 L (6-20) mg/dL Creatinine 0.66 (0.60-1.20) mg/dL Glucose 89 (70-105) mg/dL Calcium 8.3 L (8.6-10.3) mg/dL Calcium panel 11/23/18 Range/Units 04:50 Calcium 8.3 L (8.6-10.3) mg/dL Pituitary panel 11/23/18 Range/Units 04:50 Sodium 139 (136-145) mEq/L Potassium 3.7 (3.5-5.1) mEq/L Chloride 106 (98-107) mEq/L Carbon Dioxide 26 (23-29) mEq/L BUN 4 L (6-20) mg/dL Creatinine 0.66 (0.60-1.20) mg/dL Glucose 89 (70-105) mg/dL Calcium 8.3 L (8.6-10.3) mg/dL Adrenal panel 11/23/18 Range/Units 04:50 Sodium 139 (136-145) mEq/L Potassium 3.7 (3.5-5.1) mEq/L Chloride 106 (98-107) mEq/L Carbon Dioxide 26 (23-29) mEq/L BUN 4 L (6-20) mg/dL Creatinine 0.66 (0.60-1.20) mg/dL Glucose 89 (70-105) mg/dL Calcium 8.3 L (8.6-10.3) mg/dL - Attending Attestation I have personally performed a face to face evaluation on this patient. I have r eviewed and agree with the care plan. History and Exam by me shows:
[2018-11-20] MEDS: 0.9 % Sodium Chloride 1,000 ML IVC SCH ×2 (09:42→17:55)
[2018-11-20] MEDS: Pantoprazole 40 MG VIAL IVP SCH (09:42)
[2018-11-20] MEDS: *HR* LORazepam 2 MG/ML VIAL IVP PRN (09:42)
[2018-11-20] MEDS: Ipratropium/Albuterol Neb 3 ML IH SCH ×5 (10:21→23:20)
--- NOTE | 2018-11-20 15:18 | General Surgery Progress Note ---
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 gi/dvt prophylaxis daily dressing changes and packing colostomy site prn antiemetics OOB to chair, ambulate await return of bowel function (2) DVT prophylaxis Current Visit: No Status: Acute heparin sq start tonight egcd's (3) Anxiety Current Visit: No Status: Chronic prn antianxiety medication Subjective Patient reports: still having pain, no flatus, no bowel movement, afebrile Objective Vital Signs - Last 8 Hours Temp Pulse Resp BP Pulse Ox 11/20/18 15:13 97.4 F L 90 16 113/74 92 11/20/18 11:43 98.0 F 101 16 104/61 94 11/20/18 10:31 14 95 Intake and Output 11/19/18 11/20/18 11/20/18 23:59 07:59 15:59 Intake Total 380 / 1580 1200 / 1580 Output Total 850 / 880 30 / 880 Balance -470 / 700 1170 / 700 Intake: IV Fluids 200 / 1400 1200 / 1400 Lactated Ringers 1,000 ML @ 130 900 / 900 mls/hr IVC .[id number] [facility] Rx#: [id number] Ofirmev 1,000 mg/100 ml 1,000 100 / 300 200 / 300 mg In 100 ml @ 400 mls/hr IVPB Q6HR [facility] Rx#:[id number] Zosyn 3.375 GM In 0.9 % Sodium 100 / 200 100 / 200 Chloride (Mini-Bag +) 100 ML @ 25 mls/hr IVPB Q8HR [facility] Rx#: [id number] Oral 180 / 180 0 / 180 Output: Catheter 850 / 850 Wound Drainage 30 / 30 Right Lower Abdomen 30 / 30 Other: Meal Npo Percent of Meal Consumed 0% # Bowel Movements 0 Weight 77.2 kg Blood Glucose* 126 Patient Weight 11/20/18 23:59 Weight 77.2 kg - General physical appearance well developed, no distress, moderate pain - Eyes PERRL - ENT normal mucosa, normocephalic - Neck Neck exam: trachea midline - Respiratory normal expansion, clear to auscultation - Cardiovascular Cardiovascular exam: Present: RRR - Abdomen Abdomen: Present: soft, tender (appropriate post op tenderness). Absent: bowel sounds present - Incision Incision: Present: clean and dry, intact (colostomy site has packing x 2), serous. Absent: draining, erythema - Integumentary no rash, no growths - Neurologic CN 2-12 grossly intact - Musculoskeletal normal posture - Psychiatric oriented to time, oriented to person, oriented to place - Additional Exam KAROL drain 30 cc bloody drainage - Labs 11/20/18 06:36 11/20/18 06:36 Diabetes panel 11/20/18 Range/Units 06:36 Sodium 135 L (136-145) mEq/L Potassium 4.1 (3.5-5.1) mEq/L Chloride 104 (98-107) mEq/L Carbon Dioxide 26 (23-29) mEq/L BUN 10 (6-20) mg/dL Creatinine 0.70 (0.60-1.20) mg/dL Glucose 141 H (70-105) mg/dL Calcium 8.8 (8.6-10.3) mg/dL Calcium panel 11/20/18 Range/Units 06:36 Calcium 8.8 (8.6-10.3) mg/dL Phosphorus 3.1 (2.7-4.5) mg/dL Pituitary panel 11/20/18 Range/Units 06:36 Sodium 135 L (136-145) mEq/L Potassium 4.1 (3.5-5.1) mEq/L Chloride 104 (98-107) mEq/L Carbon Dioxide 26 (23-29) mEq/L BUN 10 (6-20) mg/dL Creatinine 0.70 (0.60-1.20) mg/dL Glucose 141 H (70-105) mg/dL Calcium 8.8 (8.6-10.3) mg/dL Adrenal panel 11/20/18 Range/Units 06:36 Sodium 135 L (136-145) mEq/L Potassium 4.1 (3.5-5.1) mEq/L Chloride 104 (98-107) mEq/L Carbon Dioxide 26 (23-29) mEq/L BUN 10 (6-20) mg/dL Creatinine 0.70 (0.60-1.20) mg/dL Glucose 141 H (70-105) mg/dL Calcium 8.8 (8.6-10.3) mg/dL Consult Discharge Plan - Plan Referrals: Malinda Gardner CNP [Primary Care Provider] - Becky Wallace CNP [Advanced Practice Nurse] - 12/03/18 1:15 pm
[2018-11-20] MEDS: *HR* Heparin 5,000 UNIT/ML VIAL SQ SCH (17:55)
[2018-11-21] MEDS: Acetaminophen IV 1,000 MG/100 ML INFUS..BTL IVPB SCH ×4 (00:56→18:57)
[2018-11-21] MEDS: Piperacillin/Tazobactam 3.375 GM in 0.9 % Sodium Chloride Mini Bag 100 ML IVPB SCH ×3 (00:57→15:44)
[2018-11-21] MEDS: 0.9 % Sodium Chloride 1,000 ML IVC SCH ×3 (01:11→16:07)
[2018-11-21] MEDS: *HR* Morphine 30 MG/ 30 ML PCA IVC PRN ×3 (02:29→20:51)
[2018-11-21] MEDS: Ipratropium/Albuterol Neb 3 ML IH SCH ×5 (03:58→19:51)
[2018-11-21] MEDS: *HR* Heparin 5,000 UNIT/ML VIAL SQ SCH ×2 (05:38→18:56)
[2018-11-21] MEDS: *HR* LORazepam 2 MG/ML VIAL IVP PRN (08:15)
[2018-11-21] MEDS: Pantoprazole 40 MG VIAL IVP SCH (08:15)
[2018-11-21 10:12] LABS: Basophils # 0.1 K/mcL (0.0-0.2); Basophils % 0.4 %; Eosinophils # 0.4 K/mcL (0.0-0.6); Eosinophils % 3.2 %; Hematocrit 35.8 % (35.3-44.9); Immature Granulocytes % 0.3 % (0-4); Lymphocytes # 1.2 K/mcL (0.6-4.6); Lymphocytes % 9.4 %; Mean Corpuscular HGB Conc 31.8 g/dL (31.6-35.5); Mean Corpuscular Hemoglobin 31.6 pg (28.0-33.3); Mean Corpuscular Volume 99.2 fL (83.0-100.0); Mean Platelet Volume 8.9 fL (9.4-12.4); Monocytes # 0.6 K/mcL (0.0-1.3); Monocytes % 4.5 %; Neutrophils # 10.4 K/mcL (1.6-8.9); Platelet Count 255 K/mcL (140-400); Red Blood Count 3.61 M/mcL (3.82-4.97); Red Cell Distribution Width 14.6 % (11.5-14.5); Segmented Neutrophils % 82.2 %; White Blood Count 12.7 K/mcL (4.3-11.1)
[2018-11-21 10:14] LABS: Hemoglobin 11.4 g/dL (11.5-15.4)
--- NOTE | 2018-11-21 10:24 | General Surgery Progress Note ---
<Kaci Marks - Last Filed: 11/21/18 12:05> Date of Encounter: 11/21/18 Time of Encounter: 10:00 - Assessment and Plan (1) History of colostomy reversal Current Visit: Yes Status: Acute POD #[address] 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, add scheduled toradol Strict I&O's GI prophylaxis DVT prophylaxis Out of bed to chair and Ambulate with assistance Daily wound care Remove pastrana catheter Repeat am labs- CBC, BMP (2) Anxiety Current Visit: No Status: Chronic Schedule Ativan every 6 hours (3) DVT prophylaxis Current Visit: No Status: Acute Heparin 5,000 units every 12 hours Ambulate with assistance Subjective Patient reports: still having pain (no change (sore throat and post-operative pain)), no flatus, no bowel movement, afebrile, other (Patient reports significant anxiety and inability to sleep) Objective Vital Signs - Last 8 Hours Temp Pulse Resp BP Pulse Ox 11/21/18 07:16 16 90 11/21/18 06:54 98.4 F 90 16 105/65 93 11/21/18 03:56 18 5 11/21/18 02:57 97.8 F 107 16 111/75 94 Intake and Output 11/20/18 11/21/18 11/21/18 23:59 07:59 15:59 Intake Total 1200 / 2780 1250 / 2150 900 / 2150 Output Total 1795 / 2675 810 / 810 Balance -595 / 105 440 / 1340 900 / 1340 Intake: IV Fluids 1200 / 2600 1250 / 2150 900 / 2150 0.9 % Sodium Chloride 1,000 ML 1000 / 1000 950 / 1850 900 / 1850 @ 130 mls/hr IVC .Q7H42M [facility] Rx #:[id number] Ofirmev 1,000 mg/100 ml 1,000 100 / 400 200 / 200 mg In 100 ml @ 400 mls/hr IVPB Q6HR [facility] Rx#:[id number] Zosyn 3.375 GM In 0.9 % Sodium 100 / 300 100 / 100 Chloride (Mini-Bag +) 100 ML @ 25 mls/hr IVPB Q8HR [facility] Rx#: [id number] Oral 0 / 180 Output: Urine 200 / 200 Catheter 1450 / 2300 800 / 800 Urethral (Pastrana) 500 / 500 Gastric Drainage 120 / 120 Wound Drainage Right Lower Abdomen Other: Meal NPO for breakfast # Bowel Movements 0 Blood Glucose* 94 - General physical appearance well developed, well nourished, moderate distress, moderate pain - Eyes PERRL, normal ocular movement - ENT dry mucosa, atraumatic, normocephalic - Neck Neck exam: trachea midline - Respiratory normal respiratory effort, clear to auscultation, other (diminished bibasilar bases) - Cardiovascular Cardiovascular exam: Present: RRR - Abdomen Abdomen: Present: bowel sounds present, soft, tender (expected post-operative tenderness), wound (KAROL drain to bulb suction with serousang. drainage noted (15ml since midnight); NG tube to LIWS with scant amount of drainage noted; Old ostomy site with 2 areas of packing noted (scant amount of serousang. drainage noted)) - Incision Incision: Present: clean and dry (midline), intact (midline), serosanguinous (scant amount from old ostomy site with 2 areas packed) - Genitourinary other (pastrana catheter to SD with clear, yellow urine noted ) - Neurologic CN 2-12 grossly intact - Psychiatric oriented to time, oriented to person, oriented to place, speech is normal, memory intact - Labs 11/21/18 09:47 11/21/18 09:47 Consult Discharge Plan - Plan Referrals: Malinda Gardner CNP [Primary Care Provider] - Becky Wallace CNP [Advanced Practice Nurse] - 12/03/18 1:15 pm - Attending Attestation For this encounter, I have reviewed the AMORTIZATION SCHEDULE CLERK or PA documentation, treatment plan, and medical decision making; and I have had face to face time with this patient. <Yanci Leonardo - Last Filed: 11/21/18 18:19> Date of Encounter: 11/21/18 Time of Encounter: 18:16 - Assessment and Plan (1) History of colostomy reversal Current Visit: Yes Status: Acute change ivf to maintenance continue pain control trend labs gi/dvt proph OOB to chair ambulate aggressive pulmonary toilet pastrana and ngt removed today (2) DVT prophylaxis Current Visit: No Status: Acute (3) Anxiety Current Visit: No Status: Chronic change ativan to prn and start pt on home hydroxyzine Subjective Narrative: denies any significant or worsening abdominal pain no nausea or emesis no flatus or bm states her anxiety is through the roof Objective Vital Signs - Last 8 Hours Temp Pulse Resp BP Pulse Ox 11/21/18 15:22 20 91 11/21/18 15:15 98.4 F 118 16 115/82 90 11/21/18 11:07 20 92 11/21/18 10:40 97.7 F 107 16 116/64 94 Intake and Output 11/21/18 11/21/18 11/21/18 07:59 15:59 23:59 Intake Total 1250 / 3350 1100 / 3350 1000 / 3350 Output Total 810 / 2135 1325 / 2135 Balance 440 / 1215 -225 / 1215 1000 / 1215 Intake: IV Fluids 1250 / 3350 1100 / 3350 1000 / 3350 0.9 % Sodium Chloride 1,000 ML 950 / 2850 900 / 2850 1000 / 2850 @ 130 mls/hr IVC .Q7H42M [facility] Rx #:[id number] Ofirmev 1,000 mg/100 ml 1,000 200 / 300 100 / 300 mg In 100 ml @ 400 mls/hr IVPB Q6HR [facility] Rx#:[id number] Zosyn 3.375 GM In 0.9 % Sodium 100 / 200 100 / 200 Chloride (Mini-Bag +) 100 ML @ 25 mls/hr IVPB Q8HR [facility] Rx#: [id number] Output: Urine 400 / 400 Catheter 800 / 1600 800 / 1600 Urethral (Pastrana) 500 / 500 Gastric Drainage 120 / 120 Wound Drainage Right Lower Abdomen Other: Meal NPO for lunch Blood Glucose* 94 96 78 - General physical appearance well developed, well nourished, moderate pain - Eyes PERRL, normal ocular movement - ENT normal mucosa, normocephalic - Neck Neck exam: trachea midline - Respiratory normal expansion, clear to auscultation - Cardiovascular Cardiovascular exam: Present: tachycardia - Abdomen Abdomen: Present: bowel sounds present, soft, tender, wound - Incision Incision: Present: clean and dry, intact, serosanguinous - Integumentary no rash, no growths - Neurologic CN 2-12 grossly intact - Musculoskeletal normal posture - Psychiatric oriented to time, oriented to person, oriented to place, speech is normal, memory intact - Labs 11/21/18 09:47 11/21/18 09:47 Diabetes panel 11/21/18 Range/Units 09:47 Sodium 138 (136-145) mEq/L Potassium 3.4 L (3.5-5.1) mEq/L Chloride 107 (98-107) mEq/L Carbon Dioxide 27 (23-29) mEq/L BUN 6 (6-20) mg/dL Creatinine 0.68 (0.60-1.20) mg/dL Glucose 88 (70-105) mg/dL Calcium 8.0 L (8.6-10.3) mg/dL Calcium panel 11/21/18 Range/Units 09:47 Calcium 8.0 L (8.6-10.3) mg/dL Pituitary panel 11/21/18 Range/Units 09:47 Sodium 138 (136-145) mEq/L Potassium 3.4 L (3.5-5.1) mEq/L Chloride 107 (98-107) mEq/L Carbon Dioxide 27 (23-29) mEq/L BUN 6 (6-20) mg/dL Creatinine 0.68 (0.60-1.20) mg/dL Glucose 88 (70-105) mg/dL Calcium 8.0 L (8.6-10.3) mg/dL Adrenal panel 11/21/18 Range/Units 09:47 Sodium 138 (136-145) mEq/L Potassium 3.4 L (3.5-5.1) mEq/L Chloride 107 (98-107) mEq/L Carbon Dioxide 27 (23-29) mEq/L BUN 6 (6-20) mg/dL Creatinine 0.68 (0.60-1.20) mg/dL Glucose 88 (70-105) mg/dL Calcium 8.0 L (8.6-10.3) mg/dL - Attending Attestation I have personally performed a face to face evaluation on this patient. I have reviewed and agree with the care plan. History and Exam by me shows:
[2018-11-21 10:31] LABS: BUN/Creatinine Ratio 9 (6-26); Blood Urea Nitrogen 6 mg/dL (6-20); Carbon Dioxide 27 mEq/L (23-29); Chloride 107 mEq/L (98-107); Glucose 88 mg/dL (70-105); Osmolality,Calculated 283 (280-300); Potassium 3.4 mEq/L (3.5-5.1); Sodium 138 mEq/L (136-145); eGFR For African Americans > 60 (> 60); eGFR For Non-African Americans > 60 (> 60)
[2018-11-21] MEDS ORDERED: *HR* LORazepam 2 MG/ML VIAL IVP ONE (10:41)
[2018-11-21] MEDS ORDERED: Chloraseptic Spray 177 ML BOTTLE MM PRN (10:43)
[2018-11-21] MEDS: Ketorolac 15 MG/ML VIAL IVP SCH ×2 (11:36→18:57)
[2018-11-21] MEDS ORDERED: *HR* LORazepam 2 MG/ML VIAL IVP SCH (18:00)
[2018-11-21] MEDS ORDERED: *HR* LORazepam 2 MG/ML VIAL IVP PRN (18:14)
[2018-11-21] MEDS ORDERED: 0.9 % Sodium Chloride 1,000 ML IVC SCH (18:15)
[2018-11-21] MEDS: D5% in 0.45% NACL w KCl 20 MEQ/1,000 ML MLS IVC SCH (18:57)
[2018-11-22] MEDS: Ipratropium/Albuterol Neb 3 ML IH SCH ×7 (00:12→23:11)
[2018-11-22] MEDS: Ketorolac 15 MG/ML VIAL IVP SCH ×4 (00:39→18:20)
[2018-11-22] MEDS: Acetaminophen IV 1,000 MG/100 ML INFUS..BTL IVPB SCH ×4 (00:40→18:19)
[2018-11-22] MEDS: Piperacillin/Tazobactam 3.375 GM in 0.9 % Sodium Chloride Mini Bag 100 ML IVPB SCH ×3 (00:41→16:49)
[2018-11-22] MEDS: *HR* Morphine 30 MG/ 30 ML PCA IVC PRN ×3 (05:04→22:45)
[2018-11-22 05:08] LABS: Basophils % 0.2 %; Eosinophils # 0.4 K/mcL (0.0-0.6); Eosinophils % 4.7 %; Hematocrit 33.5 % (35.3-44.9); Hemoglobin 10.7 g/dL (11.5-15.4); Immature Granulocytes % 0.4 % (0-4); Lymphocytes # 1.1 K/mcL (0.6-4.6); Mean Corpuscular HGB Conc 31.9 g/dL (31.6-35.5); Mean Corpuscular Hemoglobin 31.2 pg (28.0-33.3); Mean Corpuscular Volume 97.7 fL (83.0-100.0); Monocytes # 0.4 K/mcL (0.0-1.3); Monocytes % 4.3 %; Platelet Count 264 K/mcL (140-400); Red Blood Count 3.43 M/mcL (3.82-4.97); Red Cell Distribution Width 14.5 % (11.5-14.5); Segmented Neutrophils % 78.4 %; White Blood Count 8.9 K/mcL (4.3-11.1)
[2018-11-22 05:25] LABS: BUN/Creatinine Ratio 8 (6-26); Blood Urea Nitrogen 5 mg/dL (6-20); Calcium 8.2 mg/dL (8.6-10.3); Carbon Dioxide 26 mEq/L (23-29); Chloride 107 mEq/L (98-107); Glucose 88 mg/dL (70-105); Osmolality,Calculated 285 (280-300); Phosphorous 2.4 mg/dL (2.7-4.5); Potassium 3.7 mEq/L (3.5-5.1); Sodium 139 mEq/L (136-145); eGFR For African Americans > 60 (> 60); eGFR For Non-African Americans > 60 (> 60)
[2018-11-22] MEDS: *HR* Heparin 5,000 UNIT/ML VIAL SQ SCH ×2 (06:08→18:19)
[2018-11-22] MEDS: D5% in 0.45% NACL w KCl 20 MEQ/1,000 ML MLS IVC SCH (08:57)
[2018-11-22] MEDS: Pantoprazole 40 MG VIAL IVP SCH (08:59)
[2018-11-22] MEDS: Ondansetron 4 MG/2 ML VIAL IVP SCH ×3 (12:35→18:20)
[2018-11-23] MEDS: Piperacillin/Tazobactam 3.375 GM in 0.9 % Sodium Chloride Mini Bag 100 ML IVPB SCH ×2 (00:40→09:18)
[2018-11-23] MEDS: Acetaminophen IV 1,000 MG/100 ML INFUS..BTL IVPB SCH ×3 (00:40→13:50)
[2018-11-23] MEDS: Ketorolac 15 MG/ML VIAL IVP SCH ×3 (00:41→13:50)
[2018-11-23] MEDS: Ondansetron 4 MG/2 ML VIAL IVP SCH ×4 (00:41→18:42)
[2018-11-23] MEDS: D5% in 0.45% NACL w KCl 20 MEQ/1,000 ML MLS IVC SCH ×2 (00:41→13:49)
[2018-11-23] MEDS: Ipratropium/Albuterol Neb 3 ML IH SCH ×6 (03:56→23:12)
[2018-11-23 05:34] LABS: Basophils % 0.5 %; Eosinophils # 0.5 K/mcL (0.0-0.6); Eosinophils % 5.9 %; Hematocrit 34.4 % (35.3-44.9); Hemoglobin 11.1 g/dL (11.5-15.4); Immature Granulocytes % 0.4 % (0-4); Lymphocytes # 1.1 K/mcL (0.6-4.6); Lymphocytes % 14.1 %; Mean Corpuscular HGB Conc 32.3 g/dL (31.6-35.5); Mean Corpuscular Hemoglobin 31.8 pg (28.0-33.3); Mean Corpuscular Volume 98.6 fL (83.0-100.0); Mean Platelet Volume 9.4 fL (9.4-12.4); Monocytes # 0.4 K/mcL (0.0-1.3); Monocytes % 4.6 %; Platelet Count 283 K/mcL (140-400); Red Blood Count 3.49 M/mcL (3.82-4.97); Red Cell Distribution Width 14.2 % (11.5-14.5); Segmented Neutrophils % 74.5 %
[2018-11-23 05:54] LABS: BUN/Creatinine Ratio 6 (6-26); Blood Urea Nitrogen 4 mg/dL (6-20); Calcium 8.3 mg/dL (8.6-10.3); Carbon Dioxide 26 mEq/L (23-29); Chloride 106 mEq/L (98-107); Glucose 89 mg/dL (70-105); Osmolality,Calculated 284 (280-300); Potassium 3.7 mEq/L (3.5-5.1); Sodium 139 mEq/L (136-145); eGFR For African Americans > 60 (> 60); eGFR For Non-African Americans > 60 (> 60)
[2018-11-23] MEDS: *HR* Morphine 30 MG/ 30 ML PCA IVC PRN (05:59)
[2018-11-23] MEDS: *HR* Heparin 5,000 UNIT/ML VIAL SQ SCH ×2 (06:06→18:42)
[2018-11-23] MEDS ORDERED: OXYCODONE Oral CONC 10 MG/0.5 ML ORAL.SYG SL PRN ×2 (07:58)
--- NOTE | 2018-11-23 08:12 | General Surgery Progress Note ---
<Becky Wallace - Last Filed: 11/23/18 08:09> Date of Encounter: 11/23/18 Time of Encounter: 07:30 - Assessment and Plan (1) Status post Eugenia procedure Current Visit: Yes Status: Acute Date of procedure: 11/19/18 Pre-op diagnosis: perforated sigmoid diverticulitis Post-op diagnosis: same Procedure: Eugenia reversal Complications: none immediate Anesthesia: GETA, local Surgeon: Yanci Leonardo POD #4 as above. Pathology remains pending. He continues to recover as expected. She does report rumbling bowel sounds this a.m. however on my exam they are very hypoactive and faint at best. We will trial Reglan today. Continue scheduled Zofran as this was helpful for her nausea. 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 and DVT prophylaxis Incentive spirometry 10 times every hour while awake Out of bed to chair TID Activity as tolerated Apply ice 20 minutes on 20 minutes off as needed ice chips and Popsicles okay continue IV fluids repeat a.m. labs strict intake and output daily wound care (packing to the left lateral incision), May leave midline open to air if desired, KAROL care (2) Nausea Current Visit: Yes Status: Acute Will schedule Zofran. Continue PRN promethazine (3) Anxiety Current Visit: Yes Status: Acute Acute on chronic anxiety. Continue PO hydroxyzine and PRN IV Ativan Subjective Narrative: Brandi states she is feeling much better this morning. She states she had a lot of "rumbling in her stomach" this a.m. She has not passed flatus. She is not had a bowel movement. She states her nausea is controlled. She reports her NG was removed by the attending surgeon yesterday. She reports she has had ice chips and popsicle, denies nausea afterwords but feels bloated. Objective Vital Signs - Last 8 Hours Temp Pulse Resp BP Pulse Ox 11/23/18 06:38 97.9 F 64 15 101/66 96 11/23/18 03:41 98.2 F 91 16 107/71 93 Intake and Output 11/22/18 11/23/18 11/23/18 23:59 07:59 15:59 Intake Total 1200 / 2940 200 / 200 Output Total 700 / 2170 200 / 200 Balance 500 / 770 0 / 0 Intake: IV Fluids 1200 / 2700 200 / 200 KCl 20mEq IN D5%-0.45 NACL 20 1000 / 2000 meq In 1,000 ml @ 75 mls/hr IVC .[id number] [facility] Rx#:[id number] Ofirmev 1,000 mg/100 ml 1,000 100 / 400 100 / 100 mg In 100 ml @ 400 mls/hr IVPB Q6HR [facility] Rx#:[id number] Zosyn 3.375 GM In 0.9 % Sodium 100 / 300 100 / 100 Chloride (Mini-Bag +) 100 ML @ 25 mls/hr IVPB Q8HR [facility] Rx#: [id number] Oral 0 / 240 Output: Urine 700 / 2150 200 / 200 Wound Drainage 0 / 0 Right Lower Abdomen 0 / 0 Other: Weight 79.4 kg Blood Glucose* 150 86 Patient Weight 11/23/18 23:59 Weight 79.4 kg VITAL SIGNS: Reviewed. See [facility] GENERAL: In no apparent distress. HEENT: Normocephalic, atraumatic, pupils are equal and reactive, extraocular motions intact, oropharynx is pink and moist, there is no neck adenopathy or JVD noted. CHEST/RESPIRATORY: The thorax is free from signs of trauma. Lung sounds: clear to auscultation, normal respiratory effort CARDIAC: Regular rate and rhythm. Normal S1 and S2, without murmurs, gallops, or rubs. VASCULAR: No Edema. 2+ peripheral pulses. ABDOMEN: soft, hypoactive and faint at best bowel sounds, nondistended, nontender panic, expected postoperative tenderness INCISION: Surgical incision is clean, dry, and intact overall with 2 areas of packing in the left lateral incision. There are no signs of cellulitis or infection noted. WOUNDS/DRAINS: KAROL site is unremarkable. Mostly serous output. MUSCULOSKELETAL: Good range of motion of all major joints. Extremities without clubbing, cyanosis or edema. NEUROLOGIC EXAM: Alert and oriented x 3. Speech normal. Follows commands. PSYCHIATRIC: Mood normal. SKIN: No rash or lesions. - Labs 11/23/18 04:50 11/23/18 04:50 Diabetes panel 11/23/18 Range/Units 04:50 Sodium 139 (136-145) mEq/L Potassium 3.7 (3.5-5.1) mEq/L Chloride 106 (98-107) mEq/L Carbon Dioxide 26 (23-29) mEq/L BUN 4 L (6-20) mg/dL Creatinine 0.66 (0.60-1.20) mg/dL Glucose 89 (70-105) mg/dL Calcium 8.3 L (8.6-10.3) mg/dL Calcium panel 11/23/18 Range/Units 04:50 Calcium 8.3 L (8.6-10.3) mg/dL Pituitary panel 11/23/18 Range/Units 04:50 Sodium 139 (136-145) mEq/L Potassium 3.7 (3.5-5.1) mEq/L Chloride 106 (98-107) mEq/L Carbon Dioxide 26 (23-29) mEq/L BUN 4 L (6-20) mg/dL Creatinine 0.66 (0.60-1.20) mg/dL Glucose 89 (70-105) mg/dL Calcium 8.3 L (8.6-10.3) mg/dL Adrenal panel 11/23/18 Range/Units 04:50 Sodium 139 (136-145) mEq/L Potassium 3.7 (3.5-5.1) mEq/L Chloride 106 (98-107) mEq/L Carbon Dioxide 26 (23-29) mEq/L BUN 4 L (6-20) mg/dL Creatinine 0.66 (0.60-1.20) mg/dL Glucose 89 (70-105) mg/dL Calcium 8.3 L (8.6-10.3) mg/dL Consult Discharge Plan - Plan Instructions: Open Colostomy Reversal (DC) Additional Instructions: General Surgical Discharge Instructions 1. No pushing, pulling, or lifting greater than 15 lbs for 6 weeks (depending upon procedure). 2. You may shower beginning today, but no tub baths, soaking, or swimming for 2 weeks. 3. You may resume driving when you are off narcotics and are safe to react in a car. 4. Take ibuprofen every 8 hours for discomfort. If this does not relieve discomfort, you may take the as needed Percocet. Take narcotics as directed. Do not take more narcotics then directed and do not share your narcotics with any other person. Do not drink alcohol while on narcotics. 5. Take stool softeners (Colace) or a water based laxative (Miralax) while taking narcotics. You may hold for loose stools. 6. Report any fevers greater than 100.5F, increase abdominal discomfort, drainage that looks like pus, increased redness or pain at the surgical site, or any vomiting. 7. Report any pain in the calves, shortness of breath, or rapid heartbeat. 8. Follow-up in the office as directed. 9. If you were prescribed antibiotics, do not stop them without talking to your provider. Referrals: Malinda Gardner CNP [Primary Care Provider] - Becky Wallace CNP [Advanced Practice Nurse] - 12/03/18 1:15 pm <Yanci Leonardo - Last Filed: 11/23/18 17:15> Date of Encounter: 11/23/18 - Assessment and Plan (1) History of colostomy reversal Current Visit: Yes Status: Acute passing flatus start clears sliv start po pain medication ambulate, OOB to chair with meals gi/dvt prophylaxis (2) DVT prophylaxis Current Visit: No Status: Acute (3) Anxiety Current Visit: Yes Status: Acute continue home meds Subjective Patient reports: no new complaints, still having pain, pain is less, flatus, no bowel movement Objective Vital Signs - Last 8 Hours Temp Pulse Resp BP Pulse Ox 11/23/18 13:47 99.6 F 100 15 117/79 90 11/23/18 10:22 97.8 F 102 15 118/74 93 Intake and Output 11/23/18 11/23/18 11/23/18 07:59 15:59 23:59 Intake Total 300 / 1400 1100 / 1400 Output Total 200 / 1150 950 / 1150 Balance 100 / 250 150 / 250 Intake: IV Fluids 300 / 1400 1100 / 1400 KCl 20mEq IN D5%-0.45 NACL 20 1000 / 1000 meq In 1,000 ml @ 75 mls/hr IVC .[id number] [facility] Rx#:[id number] Ofirmev 1,000 mg/100 ml 1,000 200 / 300 100 / 300 mg In 100 ml @ 400 mls/hr IVPB Q6HR [facility] Rx#:[id number] Zosyn 3.375 GM In 0.9 % Sodium 100 / 100 Chloride (Mini-Bag +) 100 ML @ 25 mls/hr IVPB Q8HR [facility] Rx#: [id number] Oral 0 / 0 Output: Urine 200 / 1100 900 / 1100 Wound Drainage 0 50 50 / 50 Right Lower Abdomen 0 50 50 / 50 Other: Meal npo # Voids 2 Weight 79.4 kg Blood Glucose* 86 84 Patient Weight 11/23/18 23:59 Weight 79.4 kg - General physical appearance well developed, well nourished, no distress - ENT normal mucosa, normocephalic - Neck Neck exam: trachea midline - Respiratory normal expansion, clear to auscultation - Cardiovascular Cardiovascular exam: Present: RRR - Abdomen Abdomen: Present: bowel sounds present, soft, tender (appropriate post op tenderness) - Incision Incision: Present: clean and dry, serous (drainage from left colostomy site, KAROL drain serous) - Neurologic CN 2-12 grossly intact - Musculoskeletal normal gait, normal posture - Psychiatric oriented to time, oriented to person, oriented to place, speech is normal, memory intact - Labs 11/23/18 04:50 11/23/18 04:50 Diabetes panel 11/23/18 Range/Units 04:50 Sodium 139 (136-145) mEq/L Potassium 3.7 (3.5-5.1) mEq/L Chloride 106 (98-107) mEq/L Carbon Dioxide 26 (23-29) mEq/L BUN 4 L (6-20) mg/dL Creatinine 0.66 (0.60-1.20) mg/dL Glucose 89 (70-105) mg/dL Calcium 8.3 L (8.6-10.3) mg/dL Calcium panel 11/23/18 Range/Units 04:50 Calcium 8.3 L (8.6-10.3) mg/dL Pituitary panel 11/23/18 Range/Units 04:50 Sodium 139 (136-145) mEq/L Potassium 3.7 (3.5-5.1) mEq/L Chloride 106 (98-107) mEq/L Carbon Dioxide 26 (23-29) mEq/L BUN 4 L (6-20) mg/dL Creatinine 0.66 (0.60-1.20) mg/dL Glucose 89 (70-105) mg/dL Calcium 8.3 L (8.6-10.3) mg/dL Adrenal panel 11/23/18 Range/Units 04:50 Sodium 139 (136-145) mEq/L Potassium 3.7 (3.5-5.1) mEq/L Chloride 106 (98-107) mEq/L Carbon Dioxide 26 (23-29) mEq/L BUN 4 L (6-20) mg/dL Creatinine 0.66 (0.60-1.20) mg/dL Glucose 89 (70-105) mg/dL Calcium 8.3 L (8.6-10.3) mg/dL - Attending Attestation I have personally performed a face to face evaluation on this patient. I have reviewed and agree with the care plan. History and Exam by me shows:
[2018-11-23] MEDS: Pantoprazole 40 MG VIAL IVP SCH (09:20)
[2018-11-23] MEDS: Metoclopramide 10 MG/2 ML VIAL IVP SCH ×3 (09:44→18:42)
[2018-11-23] MEDS: *HR* OxyCODONE/APAP 5/325 TABLET PO PRN (21:08)
[2018-11-24] MEDS: Metoclopramide 10 MG/2 ML VIAL IVP SCH ×4 (00:03→18:37)
[2018-11-24] MEDS: Ondansetron 4 MG/2 ML VIAL IVP SCH ×4 (00:03→18:39)
[2018-11-24] MEDS: Ipratropium/Albuterol Neb 3 ML IH SCH ×6 (03:43→23:50)
[2018-11-24] MEDS: *HR* Heparin 5,000 UNIT/ML VIAL SQ SCH ×2 (06:12→18:37)
[2018-11-24] MEDS: *HR* OxyCODONE/APAP 5/325 TABLET PO PRN ×2 (09:17→18:37)
[2018-11-24] MEDS: Loratadine 10 MG TABLET PO SCH (09:18)
--- NOTE | 2018-11-24 17:40 | AcuteCareSurgery Progress Note ---
Date of Encounter: 11/24/18 Time of Encounter: 17:38 - Assessment and Plan (1) Status post Eugenia procedure Current Visit: Yes Status: Acute 42F POD #5 s/p colostomy takedown; tolerating liquids; OOBTC reg diet today possible d/c in AM Subjective Patient reports: no new complaints, feels better, still having pain, pain is less, tolerating liquids well Objective Vital Signs - Last 8 Hours Temp Pulse Resp BP Pulse Ox 11/24/18 13:54 99.1 F 87 15 125/81 95 11/24/18 10:59 16 98 11/24/18 10:35 99.0 F 87 15 128/82 97 Intake and Output 11/24/18 11/24/18 11/24/18 07:59 15:59 23:59 Intake Total 120 / 720 600 / 720 Output Total 0 20 Balance 120 / 700 580 / 700 Intake: Oral 120 / 720 600 / 720 Output: Urine 0 / 0 0 / 0 Wound Drainage 0 Right Lower Abdomen Other: Stool Size Moderate # Voids 1 # Bowel Movements 3 - General physical appearance no distress - Respiratory normal expansion, normal respiratory effort - Cardiovascular Cardiovascular exam: Present: RRR - Abdomen Abdomen: Present: soft, non tender - Incision Incision: Present: clean and dry, intact - Neurologic CN 2-12 grossly intact - Labs 11/23/18 04:50 11/23/18 04:50 Consult Discharge Plan - Plan Instructions: Open Colostomy Reversal (DC) Additional Instructions: General Surgical Discharge Instructions 1. No pushing, pulling, or lifting greater than 15 lbs for 6 weeks (depending upon procedure). 2. You may shower beginning today, but no tub baths, soaking, or swimming for 2 weeks. 3. You may resume driving when you are off narcotics and are safe to react in a car. 4. Take ibuprofen every 8 hours for discomfort. If this does not relieve discomfort, you may take the as needed Percocet. Take narcotics as directed. Do not take more narcotics then directed and do not share your narcotics with any other person. Do not drink alcohol while on narcotics. 5. Take stool softeners (Colace) or a water based laxative (Miralax) while taki ng narcotics. You may hold for loose stools. 6. Report any fevers greater than 100.5F, increase abdominal discomfort, drainage that looks like pus, increased redness or pain at the surgical site, or any vomiting. 7. Report any pain in the calves, shortness of breath, or rapid heartbeat. 8. Follow-up in the office as directed. 9. If you were prescribed antibiotics, do not stop them without talking to your provider. Referrals: Malinda Gardner CNP [Primary Care Provider] - Becky Wallace CNP [Advanced Practice Nurse] - 12/03/18 1:15 pm
--- NOTE | 2018-11-24 17:53 | General Surgery Progress Note ---
Date of Encounter: 11/24/18 Time of Encounter: 17:52 - Assessment and Plan (1) Status post Eugenia procedure Current Visit: Yes Status: Acute 42F POD #5 s/p colostomy takedown; tolerating liquids; OOBTC reg diet today possible d/c in AM activity as tolerated Subjective Patient reports: no new complaints, feels better, still having pain, pain is less, flatus Objective Vital Signs - Last 8 Hours Temp Pulse Resp BP Pulse Ox 11/24/18 13:54 99.1 F 87 15 125/81 95 11/24/18 10:59 16 98 11/24/18 10:35 99.0 F 87 15 128/82 97 Intake and Output 11/24/18 11/24/18 11/24/18 07:59 15:59 23:59 Intake Total 120 / 720 600 / 720 Output Total 0 20 Balance 120 / 700 580 / 700 Intake: Oral 120 / 720 600 / 720 Output: Urine 0 / 0 0 / 0 Wound Drainage 0 Right Lower Abdomen 0 Other: Stool Size Moderate # Voids 1 # Bowel Movements 3 - General physical appearance no distress - Respiratory normal expansion, normal respiratory effort - Cardiovascular Cardiovascular exam: Present: RRR - Abdomen Abdomen: Present: soft, non tender - Incision Incision: Present: clean and dry, intact - Neurologic CN 2-12 grossly intact - Labs 11/23/18 04:50 11/23/18 04:50 Consult Discharge Plan - Plan Instructions: Open Colostomy Reversal (DC) Additional Instructions: General Surgical Discharge Instructions 1. No pushing, pulling, or lifting greater than 15 lbs for 6 weeks (depending upon procedure). 2. You may shower beginning today, but no tub baths, soaking, or swimming for 2 weeks. 3. You may resume driving when you are off narcotics and are safe to react in a car. 4. Take ibuprofen every 8 hours for discomfort. If this does not relieve discomfort, you may take the as needed Percocet. Take narcotics as directed. Do not take more narcotics then directed and do not share your narcotics with any other person. Do not drink alcohol while on narcotics. 5. Take stool softeners (Colace) or a water based laxative (Miralax) while taking narcotics. You may hold for loose stools. 6. Report any fevers greater than 100.5F, increase abdominal discomfort, drainage that looks like pus, increased redness or pain at the surgical site, or any vomiting. 7. Report any pain in the calves, shortness of breath, or rapid heartbeat. 8. Follow-up in the office as directed. 9. If you were prescribed antibiotics, do not stop them without talking to your provider. Referrals: Malinda Gardner CNP [Primary Care Provider] - Becky Wallcae CNP [Advanced Practice Nurse] - 12/03/18 1:15 pm
[2018-11-25] MEDS: Ondansetron 4 MG/2 ML VIAL IVP SCH ×2 (00:34→05:38)
[2018-11-25] MEDS: Metoclopramide 10 MG/2 ML VIAL IVP SCH ×2 (00:34→05:38)
[2018-11-25] MEDS: *HR* Heparin 5,000 UNIT/ML VIAL SQ SCH (05:39)
[2018-11-25] MEDS: *HR* OxyCODONE/APAP 5/325 TABLET PO PRN (09:49)
[2018-11-25] MEDS: Loratadine 10 MG TABLET PO SCH (09:49)
[2018-11-25 14:02] VITALS: BP 128/82
--- NOTE | 2018-11-25 14:18 | Discharge Summary ---
Date of Encounter: 11/25/18 Time of Encounter: 14:17 - Discharge Diagnosis (1) Status post Eugenia procedure Priority: Primary Status: Acute Comments: 42F POD #6 s/p colostomy takedown; tolerating reg diet, ambulating; pain con trolled; meets d/c criteria f/u in clinic as scheduled General Surgery Exam Initial Vital Signs Temp Pulse Resp BP Pulse Ox 98.1 F 95 18 114/80 98 11/19/18 11:24 11/19/18 11:24 11/19/18 11:24 11/19/18 11:24 11/19/18 11:24 - General physical appearance no distress - Eyes normal ocular movement - ENT normocephalic - Respiratory normal expansion, normal respiratory effort - Cardiovascular Cardiovascular exam: Present: RRR - Abdomen Abdomen general surgery: Present: soft, non tender - Incision Incision: Present: clean and dry, intact - Integumentary Integumentary general surgery: Present: warm and dry - Neurologic Present: CN 2-12 grossly intact - Musculoskeletal Present: normal posture - Psychiatric Psychiatric general surgery: Present: A&Ox3 - Hospital Course Hospital course: Ms. Perales is a 42 year old female - Time Spent with Patient Total time spent providing and/or coordinating discharge services: Greater than 30 minutes - Discharge Medications Prescriptions: New OxyCODONE/APAP 5/325 [Percocet 5/325 MG] 1 each PO Q6HR PRN 7 Days #28 tablet PRN Reason: Pain Continued Docusate Sodium [Colace] 100 mg PO BID PRN #30 capsule PRN Reason: Contstipation HydrOXYzine 10 - 20 mg PO Q8H PRN PRN Reason: Anxiety Loratadine [Claritin] 10 mg PO DAILY Omeprazole [PriLOSEC] 20 mg PO DAILY Polyethylene Glycol 3350 [MiraLAX] 17 gm PO DAILY PRN PRN Reason: Constipation Home Medications: Docusate Sodium [Colace] 100 mg PO BID PRN #30 capsule 08/16/18 [Rx] HydrOXYzine 10 - 20 mg PO Q8H PRN 11/19/18 [History] Loratadine [Claritin] 10 mg PO DAILY 11/19/18 [History] Omeprazole [PriLOSEC] 20 mg PO DAILY 11/19/18 [History] Polyethylene Glycol 3350 [MiraLAX] 17 gm PO DAILY PRN 11/19/18 [History] OxyCODONE/APAP 5/325 [Percocet 5/325 MG] 1 each PO Q6HR PRN 7 Days #28 tablet 11/25/18 [Rx] Allergies/Adverse Reactions: Allergy/AdvReac Type Severity Reaction Status Date / Time diphenhydramine AdvReac "FEELS Verified 11/19/18 11:57 [From Benadryl] LIKE A HEART ATTACK, HEART RACES" hydrocodone [From Vicodin] AdvReac Vomiting Verified 11/19/18 11:57 Date of admission: 11/19/18 20:35 Primary care physician: Malinda Gardner CNP Consults: 11/20/18 08:37 Consult to Respiratory Therapy [CONS] Stat Reason for Consult: [place] and aggressive pulmonary toileting, patient is smoker and wheezing. Added scheduled duonebs Time Notified: 08:37 Call Completed: No Discharging clinician: Everardo Najera Anticipated date of discharge: 11/25/18 - Impressions ITS Impressions KUB X-Ray 11/20/18 08:32 IMPRESSION: NG tube tip in the gastric body with the proximal side-port in the gastric fundus. D/ / 11/20/2018 09:43:00 Román Barron MD / [facility] Interpreting Provider: Román Barron MD - Patient Status Disposition: Home, Self-Care Condition: Good Functional capacity at discharge: independent ambulation Overall status at discharge: patient is progressing back to baseline - Discharge Instructions Instructions: Open Colostomy Reversal (DC) Follow Up With: Malinda Gardner CNP [Primary Care Provider] - Becky Wallace CNP [Advanced Practice Nurse] - 12/03/18 1:15 pm Additional Instructions: General Surgical Discharge Instructions 1. No pushing, pulling, or lifting greater than 15 lbs for 6 weeks (depending upon procedure). 2. You may shower beginning today, but no tub baths, soaking, or swimming for 2 weeks. 3. You may resume driving when you are off narcotics and are safe to react in a car. 4. Take ibuprofen every 8 hours for discomfort. If this does not relieve discomfort, you may take the as needed Percocet. Take narcotics as directed. Do not take more narcotics then directed and do not share your narcotics with any other person. Do not drink alcohol while on narcotics. 5. Take stool softeners (Colace) or a water based laxative (Miralax) while taking narcotics. You may hold for loose stools. 6. Report any fevers greater than 100.5F, increase abdominal discomfort, drainage that looks like pus, increased redness or pain at the surgical site, or any vomiting. 7. Report any pain in the calves, shortness of breath, or rapid heartbeat. 8. Follow-up in the office as directed. 9. If you were prescribed antibiotics, do not stop them without talking to your provider. - Diet and Activity Activity: increase activity as tolerated Diet: advance to your usual diet
== END 2018-11-25 16:25 | disposition home or self-care (01) | DRG 231 ==
LOC: SAMDAY 11:07 → 3ANU 20:35
PROVIDERS: ADMIT Surgery; ATTEND Surgery